=== PATIENT | male | born 1960 | race Caucasian/White ===

== ENCOUNTER → 2017-12-18 15:44 | Outpatient (CLI) | payer MEDICAID, SELFPAY ==
--- NOTE | 2017-12-18 16:26 | XR_ITS ---
EXAM: XR lumbar spine min 4V HISTORY: ITS.REASON: Back Pain ORDERING PHYSICIAN: Tomas Haines MD PATIENT AGE: 57 years COMPARISON: FINDINGS: Normal alignment. No fracture or dislocation. No lytic or blastic change. Endplate spurring is present from L2 to S1. There is mild degenerative disc disease at L4-L5 and L5-S1. No lytic or blastic change. Incidental vascular calcification noted. Right upper quadrant calcifications are present and may be within the liver. IMPRESSION: Degenerative disc disease L4-L5 and L5-S1 with bony endplate hypertrophic changes of the vertebral bodies
[2017-12-18 16:56] LABS: Microscopic, Urine URINE MICROSCOPIC (MICROSCOPIC)
[2017-12-18 17:42] LABS: Basophils # 0.1 K/mm3 (0-0.2); Basophils % 0.6 % (0.1-2.0); Eosinophils # 0.3 K/mm3 (0.0-0.4); Eosinophils % 2.6 % (0.1-12.0); Hematocrit 47.3 % (42.0-52.0); Hemoglobin 15.7 g/dL (14.1-18.0); Lymphocytes # 3.2 K/mm3 (0.7-4.5); Lymphocytes % 33.9 K/mm3 (10-50); Mean Corpuscular HGB Conc 33.2 g/dL (31.8-35.4); Mean Corpuscular Hemoglobin 32.1 pg (27.0-31.2); Mean Corpuscular Volume 96.5 fl (80-94); Mean Platelet Volume 7.7 fl (7.4-10.4); Monocytes # 0.4 K/mm3 (0.1-1.0); Monocytes % 4.5 % (1.7-9.3); Neutrophils # 5.6 K/mm3 (1.8-7.8); Neutrophils % 58.4 % (37.0-80.0); Platelet Count 247 K/mm3 (142-424); Red Cell Distribution Width 12.9 % (11.5-17.5); White Blood Count 9.6 K/mm3 (4.8-10.8)
[2017-12-18 18:45] LABS: Appearance,Urine CLEAR (Clear); Color,Urine YELLOW (Yellow); Protein,Urine Negative (Negative)
[2017-12-18 18:46] LABS: Bilirubin,Urine Negative (Negative); Blood, Urine TRACE-L (Negative); Glucose,Urine (UA) Negative (Negative); Ketones,Urine Negative (Negative); Leukocyte Esterase,Urine 1+ (Negative); Nitrate,Urine Negative (Negative); Urobilinogen,Urine 0.2 EU/dl (0.2)
[2017-12-18 19:14] LABS: Erythrocyte Sedimentation Rate 12 mm/hr (0-20)
[2017-12-18 19:55] LABS: Alanine Aminotransferase 23 U/L (12-78); Albumin Level 4.2 gm/dL (3.4-5.0); Albumin/Globulin Ratio 1.3 (1.1-1.8); Alkaline Phosphatase 91 U/L (46-116); Anion Gap 14.1 mEq/L (5-15); Aspartate Amino Transferase 14 U/L (15-37); Bilirubin,Total 0.4 mg/dL (0.2-1.0); Blood Urea Nitrogen 12 mg/dL (7-18); Calcium 9.6 mg/dL (8.5-10.1); Carbon Dioxide 28 mmol/L (21.0-32.0); Chloride 105 mmol/L (98-107); Estimated Glomerular Filt Rate 100 ml/min (>60); Free T4 (Free Thyroxine) 0.85 ng/dl (0.76-1.46); GFR (African American) 121 ML/MIN (>60); Globulin 3.3 gm/dl (1.3-3.2); Glucose 81 mg/dL (74-106); Potassium 5.1 mmoL/L (3.5-5.1); Sodium 142 mmol/L (136-145); Thyroid Stimulating Hormone 2.62 uIU/ml (0.358-3.740); Total Protein,Serum 7.5 gm/dL (6.4-8.2)
[2017-12-18 19:59] LABS: Bacteria,Urine 1+ /lpf
[2017-12-22 12:37] LABS: PSA, Free 0.17 ng/mL
[2017-12-22 12:39] LABS: Prostate Specific Ag 0.9 ng/mL (0.0-4.0)
== END ==
PROVIDERS: PCP Emergency Medicine; Visit Provider Emergency Medicine
DX: R53.83 Other fatigue (principal); M54.9 Dorsalgia, unspecified
CPT/HCPCS: 36415; 72110; 80053; 81001; 84153; 84154; 84439; 84443; 85025; 85651; 87086

== ENCOUNTER → 2018-01-01 12:38 | Outpatient (CLI) | payer MEDICAID, SELFPAY ==
[2018-01-01 12:55] LABS: Basophils % 0.4 % (0.1-2.0); Eosinophils # 0.3 K/mm3 (0.0-0.4); Eosinophils % 2.7 % (0.1-12.0); Hematocrit 44.8 % (42.0-52.0); Hemoglobin 15.3 g/dL (14.1-18.0); Lymphocytes # 2.7 K/mm3 (0.7-4.5); Lymphocytes % 28.2 K/mm3 (10-50); Mean Corpuscular HGB Conc 34.2 g/dL (31.8-35.4); Mean Corpuscular Hemoglobin 32.9 pg (27.0-31.2); Mean Corpuscular Volume 96.3 fl (80-94); Monocytes # 0.4 K/mm3 (0.1-1.0); Monocytes % 4.1 % (1.7-9.3); Neutrophils # 6.1 K/mm3 (1.8-7.8); Neutrophils % 64.5 % (37.0-80.0); Platelet Count 220 K/mm3 (142-424); Red Blood Count 4.65 M/mm3 (4.60-6.20); Red Cell Distribution Width 12.8 % (11.5-17.5); White Blood Count 9.5 K/mm3 (4.8-10.8)
[2018-01-01 13:55] LABS: Alanine Aminotransferase 21 U/L (12-78); Albumin Level 3.7 gm/dL (3.4-5.0); Albumin/Globulin Ratio 1.2 (1.1-1.8); Alkaline Phosphatase 86 U/L (46-116); Anion Gap 11.8 mEq/L (5-15); Aspartate Amino Transferase 9 U/L (15-37); Bilirubin,Total 0.2 mg/dL (0.2-1.0); Blood Urea Nitrogen 9 mg/dL (7-18); Calcium 9.3 mg/dL (8.5-10.1); Carbon Dioxide 29 mmol/L (21.0-32.0); Chloride 104 mmol/L (98-107); Creatinine,Serum 0.92 mg/dL (0.70-1.30); Estimated Glomerular Filt Rate 85 ml/min (>60); GFR (African American) 103 ML/MIN (>60); Globulin 3.1 gm/dl (1.3-3.2); Glucose 116 mg/dL (74-106); Potassium 4.8 mmoL/L (3.5-5.1); Sodium 140 mmol/L (136-145); Total Protein,Serum 6.8 gm/dL (6.4-8.2)
== END ==
PROVIDERS: Visit Provider Otolaryngology
DX: Z01.818 Encounter for other preprocedural examination (principal); L98.9 Disorder of the skin and subcutaneous tissue, unspecified; C44.209 Unspecified malignant neoplasm of skin of left ear and external auricular canal; D49.2 Neoplasm of unspecified behavior of bone, soft tissue, and skin
CPT/HCPCS: 36415; 80053; 85025; 93005

== ENCOUNTER → 2018-10-02 11:04 | Outpatient (CLI) | payer MEDICAID, SELFPAY ==
[2018-10-02 10:30] VITALS: PULSE 72; PULSE 78
== END ==
PROVIDERS: PCP Emergency Medicine; Visit Provider Emergency Medicine
DX: R05 Cough (principal); F17.200 Nicotine dependence, unspecified, uncomplicated
CPT/HCPCS: 94060; 94640

== ENCOUNTER → 2018-12-05 07:37 | Outpatient (CLI) | payer MEDICAID, SELFPAY ==
--- NOTE | 2018-12-05 07:39 | NM_ITS ---
CARDIOLITE SPECT MYOCARDIAL PERFUSION LEXISCAN, REST AND STRESS: [facility] REVIEW QGS EF AND WALL MOTION EVALUATION: QPS - PERFUSION EVALUATION HISTORY: C.P. DOSE: 10.06 mCi technetium 99m mibi intravenously at rest followed by 30.7 mCi technetium 99m mibi following the intravenous ministration of 0.4 mg of Lexiscan. Resting blood pressure is 146/86. Stress blood pressure 178/93. FINDINGS: Ejection fraction is calculated to be 66%. Uniform myocardial activity at both stress and rest gated images calculated ejection fraction of 66% wall motion IMPRESSION: No scintigraphic evidence of Lexiscan-induced myocardial ischemia with normal ejection fraction normal wall motion
--- NOTE | 2018-12-05 10:56 | HMH.ITSHM ---
Current Home Medications as stated by this patient Karthikeyan Carter or apprenticeship representative. []
== END ==
PROVIDERS: PCP Emergency Medicine; Visit Provider Internal Medicine Cardiovascular Disease
DX: Z01.818 Encounter for other preprocedural examination (principal); I20.9 Angina pectoris, unspecified; R10.11 Right upper quadrant pain; F17.209 Nicotine dependence, unspecified, with unspecified nicotine-induced disorders
CPT/HCPCS: 78452; 93017; 93306; A9502; J2785

== ENCOUNTER → 2018-12-28 10:53 | Outpatient (CLI) | payer MEDICAID, SELFPAY ==
[2018-12-28 11:22] LABS: Basophils # 0.1 K/mm3 (0-0.2); Basophils % 0.5 % (0.1-2.0); Eosinophils # 0.2 K/mm3 (0.0-0.4); Eosinophils % 1.9 % (0.1-12.0); Hematocrit 44.8 % (42.0-52.0); Hemoglobin 15.3 g/dL (14.1-18.0); Lymphocytes # 2.7 K/mm3 (0.7-4.5); Lymphocytes % 23.1 % (10-50); Mean Corpuscular HGB Conc 34.1 g/dL (31.8-35.4); Mean Corpuscular Hemoglobin 32.1 pg (27.0-31.2); Mean Corpuscular Volume 94.1 fl (80-94); Mean Platelet Volume 7.7 fl (7.4-10.4); Monocytes # 0.5 K/mm3 (0.1-1.0); Monocytes % 4.5 % (1.7-9.3); Neutrophils # 8.2 K/mm3 (1.8-7.8); Neutrophils % 70.1 % (37.0-80.0); Platelet Count 250 K/mm3 (142-424); Red Blood Count 4.76 M/mm3 (4.60-6.20); Red Cell Distribution Width 13.3 % (11.5-17.5); White Blood Count 11.7 K/mm3 (4.8-10.8)
[2018-12-28 11:57] LABS: Alanine Aminotransferase 26 U/L (12-78); Albumin Level 4.1 gm/dL (3.4-5.0); Albumin/Globulin Ratio 1.2 (1.1-1.8); Alkaline Phosphatase 84 U/L (46-116); Anion Gap 11.4 mEq/L (5-15); Aspartate Amino Transferase 7 U/L (15-37); Bilirubin,Total 0.2 mg/dL (0.2-1.0); Blood Urea Nitrogen 12 mg/dL (7-18); Calcium 9.3 mg/dL (8.5-10.1); Carbon Dioxide 28 mmol/L (21.0-32.0); Chloride 103 mmol/L (98-107); Creatinine,Serum 0.76 mg/dL (0.70-1.30); Estimated Glomerular Filt Rate 105 ml/min (>60); GFR (African American) 127 ML/MIN (>60); Globulin 3.3 gm/dl (1.3-3.2); Glucose 73 mg/dL (74-106); Potassium 4.4 mmoL/L (3.5-5.1); Sodium 138 mmol/L (136-145); Total Protein,Serum 7.4 gm/dL (6.4-8.2)
== END ==
PROVIDERS: Visit Provider Surgery
DX: K82.9 Disease of gallbladder, unspecified (principal)
CPT/HCPCS: 36415; 80053; 85025

== ENCOUNTER → 2021-01-04 14:13 | Outpatient (CLI) | payer MEDICAID, SELFPAY ==
--- NOTE | 2021-01-04 14:17 | XR_ITS ---
PROCEDURE: XR ANKLE LT MIN 3V CLINICAL INDICATION: left foot and ankle pain COMPARISON: No exams were available for comparison FINDINGS: No fracture or dislocation. No lytic or blastic change. There is normal mineralization. Incidental note is made of os trigonum. The ankle mortise is congruent and the lateral clear space is preserved. No significant soft tissue abnormality is noted. Other findings:None. IMPRESSION: No acute findings. Dictated by: Lauren Loomis 01/04/2021 16:54 Lauren Loomis in [place] 01/04/2021 16:54
[2021-01-04 17:15] LABS: Basophils # 0.1 K/mm3 (0-0.2); Eosinophils # 0.2 K/mm3 (0.0-0.4); Eosinophils % 1.9 % (0.1-12.0); Hematocrit 47.6 % (42.0-52.0); Hemoglobin 15.8 g/dL (14.1-18.0); Lymphocytes # 2.6 K/mm3 (0.7-4.5); Lymphocytes % 27.9 % (10-50); Mean Corpuscular HGB Conc 33.1 g/dL (31.8-35.4); Mean Corpuscular Hemoglobin 32.1 pg (27.0-31.2); Mean Corpuscular Volume 96.9 fl (80-94); Mean Platelet Volume 8.4 fl (7.4-10.4); Monocytes # 0.5 K/mm3 (0.1-1.0); Monocytes % 5.6 % (1.7-9.3); Neutrophils # 5.9 K/mm3 (1.8-7.8); Neutrophils % 63.6 % (37.0-80.0); Platelet Count 271 K/mm3 (142-424); Red Blood Count 4.91 M/mm3 (4.60-6.20); Red Cell Distribution Width 13.8 % (11.5-17.5); White Blood Count 9.3 K/mm3 (4.8-10.8)
[2021-01-04 17:51] LABS: Alanine Aminotransferase 25 U/L (12-78); Albumin Level 4.5 g/dl (3.5-5.0); Albumin/Globulin Ratio 1.8 (1.1-1.8); Alkaline Phosphatase 94 U/L (38-126); Anion Gap 12.3 mEq/L (5-15); Aspartate Amino Transferase 24 U/L (17-59); Bilirubin,Total 0.2 mg/dl (0.2-1.3); Blood Urea Nitrogen 14 mg/dl (9-20); Calcium 9.7 mg/dl (8.4-10.2); Carbon Dioxide 27 mmol/L (22.0-30.0); Chloride 105 mmol/L (98-107); Chol/HDL Ratio 5.5 (1-3.5); Cholesterol 197 mg/dl (140-200); Estimated Glomerular Filt Rate 99 ml/min (>60); GFR (African American) 119 ML/MIN (>60); Globulin 2.5 g/dL (1.3-3.2); Glucose 87 mg/dl (74-100); HDL Cholesterol 36 mg/dl (40-60); Potassium 5.3 mmoL/L (3.5-5.1); Sodium 139 mmol/L (136-145); Triglycerides 204 mg/dl (30-150); Uric Acid 5.4 mg/dl (3.5-8.5); VLDL Cholesterol 41 mg/dL (0-40)
[2021-01-04 18:02] LABS: Direct LDL Cholesterol 126.71 mg/dL (100-129)
[2021-01-04 18:08] LABS: Free T4 (Free Thyroxine) 0.97 ng/dl (0.78-2.19)
[2021-01-04 18:22] LABS: Prostate Specific Ag Screen 1.2 ng/ml (0.0-4.0); Thyroid Stimulating Hormone 1.73 uIU/mL (0.465-4.68)
== END ==
PROVIDERS: PCP Emergency Medicine; Visit Provider Emergency Medicine
DX: M25.572 Pain in left ankle and joints of left foot (principal); M79.672 Pain in left foot; R53.83 Other fatigue; Z12.5 Encounter for screening for malignant neoplasm of prostate; I10 Essential (primary) hypertension; F17.210 Nicotine dependence, cigarettes, uncomplicated
CPT/HCPCS: 36415; 73610; 80053; 80061; 84439; 84443; 84550; 85025; G0103

== ENCOUNTER → 2021-04-20 14:06 | Outpatient (CLI) | payer MEDICAID, SELFPAY ==
[2021-04-20 14:18] LABS: Coronavirus 19, PCR Not Detected (NotDetected); Influenza A, PCR Not Detected (NotDetected); Influenza B, PCR Not Detected (NotDetected)
[2021-04-20 14:22] LABS: Basophils # 0.1 K/mm3 (0-0.2); Basophils % 0.9 % (0.1-2.0); Eosinophils # 0.3 K/mm3 (0.0-0.4); Eosinophils % 2.9 % (0.1-12.0); Hematocrit 46.4 % (42.0-52.0); Hemoglobin 15.1 g/dL (14.1-18.0); Lymphocytes # 3.1 K/mm3 (0.7-4.5); Lymphocytes % 29.4 % (10-50); Mean Corpuscular HGB Conc 32.4 g/dL (31.8-35.4); Mean Corpuscular Hemoglobin 32.1 pg (27.0-31.2); Mean Corpuscular Volume 98.8 fl (80-94); Mean Platelet Volume 8.3 fl (7.4-10.4); Monocytes # 0.6 K/mm3 (0.1-1.0); Monocytes % 5.4 % (1.7-9.3); Neutrophils # 6.6 K/mm3 (1.8-7.8); Neutrophils % 61.3 % (37.0-80.0); Platelet Count 289 K/mm3 (142-424); Red Cell Distribution Width 13.6 % (11.5-17.5); White Blood Count 10.7 K/mm3 (4.8-10.8)
--- NOTE | 2021-04-20 14:24 | ECG_ITS ---
APPROVED REPORT Exam: Resting ECG HR:73 bpm ECG Measurements Heart Rate 73 AXES [place] 158 P 23 QRSd 92 QRS 77 QT 386 T 17 QTc 425 Conclusion Normal sinus rhythm Late R wave progression Abnormal ECG Electronically signed by : Hung Mattson MD 04/20/2021 17:33:08
[2021-04-20 16:07] LABS: Anion Gap 16.2 mEq/L (5-15); Blood Urea Nitrogen 8 mg/dl (9-20); Calcium 9.2 mg/dl (8.4-10.2); Carbon Dioxide 25 mmol/L (22.0-30.0); Chloride 102 mmol/L (98-107); Estimated Glomerular Filt Rate 98 ml/min (>60); GFR (African American) 119 ML/MIN (>60); Glucose 85 mg/dl (74-100); Potassium 4.2 mmoL/L (3.5-5.1); Sodium 139 mmol/L (136-145)
== END ==
PROVIDERS: Visit Provider Otolaryngology
DX: Z01.812 Encounter for preprocedural laboratory examination (principal); L57.0 Actinic keratosis; L56.8 Other specified acute skin changes due to ultraviolet radiation
CPT/HCPCS: 36415; 80048; 85025; 93005; U0003

== ENCOUNTER 2021-04-22 06:37 | Day surgery (SDC) | payer MEDICAID, SELFPAY ==
[2021-04-21 12:37] VITALS: BMI 25.7
[2021-04-22 06:56] VITALS: BP 147/96; PULSE 81; RESP 18; TEMP 36.7; O2SAT 96
--- NOTE | 2021-04-22 08:43 | P.PN_ITS ---
[facility] Anesthesia Checklist - Structural Data Admitted From: Home Planned Operative Procedure/s: excision lesions lip/ear Consent for Planned Operative Procedure(s) Verified: Yes - Additional verifications Anesthesia Reactions: No Hx Blood Transfusions: No Blood Transfusion Reaction: No - Airway Assessment C-Spine Mobility Assessed: Yes TMJ Mobility Assessed: Yes Dentition: Edentulous - Neurological Assessment Level of Consciousness: Awake, Alert, Appropriate - Anesthesia Plan Anesthesia Risk discussed: Yes Anesthesia Plan: Verified ASA Class: III Anesthesia Type: MAC [facility] History I have reviewed the patient's past medical history: Yes Medical History: Reports:: Gastroesophageal Reflux Disease(GERD), Hypertension, Migraine Denies:: Cancer, Diabetes Mellitus Type 1, Diabetes Mellitus Type 2, Internal Pacemaker, MRSA, Seizures *Have you ever received a pneumonia vaccine?: No *Have you received a flu vaccine this season?: No Other Medical History: Reports: Arthritis, Other. Denies: Blood Transfusion Reaction Anesthesia experience/problems:: none Laterality Cases: Bilateral: Other Other Surgeries: Yes: Cancer Surgery, Cholecystectomy, Skin Cancer Excision, Other. No: Pacemaker Amputation: No Fractures: No - *Social History Last grade of school completed: High school graduate Smoking Status: Current every day smoker Tobacco Type: cigarettes # Packs/Day (cigarettes): 2 #Yrs smoked (if former smoker): 40 Alcohol Intake: never Substance Use Type: denies use *Occupational Status:: retired Housing: house Household Members: spouse, children *Travel in the last 8 weeks: None Family Hx:: Cancer, Coronary Artery Disease
[2021-04-22 09:20] VITALS: BP 134/80; PULSE 75; RESP 16; TEMP 36.5; O2SAT 95
--- NOTE | 2021-04-22 09:20 | P.OP_ITS ---
Date of procedure: 04/22/21 Pre-op Diagnosis:: 1. 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 Excision of malignant neoplasm lower lip 3.8 cm with tissue rearrangement geometric plastic repair 2. Excision of neoplasm left ear 2.5 cm with Z-plasty tissue rearrangement repair Surgeon:: Elvis Whalen MD CONTRACT DRIVER:: Arie Flanagan Anesthesia: MAC Estimated blood loss (mL): 5 Operative findings:: same Operative note:: The lower face was prepped and draped, the perilesional area on the right side of the lower lip was infiltrated with a total of 3 cc of 2% lidocaine containing epinephrine. The lesion was marked out and the esteban out measured 3.8 cm and involved the red lip as well as the upper part of the white lip on the right side. The esteban out was incised and the lesion was excised and submitted. Bleeding was stopped with bipolar cautery. Anterior and posterior incisions were made and a tissue rearrangement geometric plastic repair was done with interrupted nylon sutures. A Dermabond dressing was applied along with a dot omaira ssing. The patient was then repositioned and the lesion on the left ear was prepped and draped, the lesion was marked out it measured 2.5 cm, the perilesional area was infiltrated with a total of 2 cc of lidocaine with epi the esteban out was incised and the lesion was excised and submitted. Lateral and medial incisions were made and a tissue rearrangement Z-plasty repair was done with interrupted 2-0 Vicryl sutures, a Dermabond dressing was applied and the patient was sent to recovery in good general condition.. Condition: stable Disposition: PACU Complications:: none
[2021-04-22 09:35] VITALS: BP 140/92; PULSE 75; RESP 16; O2SAT 95
[2021-04-22 09:50] VITALS: BP 148/87; PULSE 75; RESP 16; O2SAT 95
== END 2021-04-22 09:55 | disposition home or self-care (01) ==
LOC: OR 06:38
PROVIDERS: PCP Emergency Medicine; Visit Provider Otolaryngology
PROC: (CPT 14060; principal; 2021-04-22 08:15)
DX: C00.4 Malignant neoplasm of lower lip, inner aspect (principal); C00.1 Malignant neoplasm of external lower lip; L57.0 Actinic keratosis; K21.9 Gastro-esophageal reflux disease without esophagitis; I10 Essential (primary) hypertension; G43.909 Migraine, unspecified, not intractable, without status migrainosus; M19.90 Unspecified osteoarthritis, unspecified site; Z85.828 Personal history of other malignant neoplasm of skin; Z72.0 Tobacco use; Z80.9 Family history of malignant neoplasm, unspecified; Z82.49 Family history of ischemic heart disease and other diseases of the circulatory system
CPT/HCPCS: 14060 ×2; 96374; 96375

== ENCOUNTER 2022-05-17 12:26 | Emergency (ER) | payer MEDICAID, SELFPAY ==
[2022-05-17] VITALS (10 sets, daily range): BP systolic 145–191; BP diastolic 86–108; PULSE 56–78; RESP 16–160; TEMP 36.6–37.1; O2SAT 96–98; BMI 25.8
--- NOTE | 2022-05-17 12:42 | XR_ITS ---
FINAL REPORT CLINICAL HISTORY: Weakness, SOA x days. Smoker COMPARISON: October 16, 2018 FINDINGS: The heart size is normal. The mediastinum is normal. There are mild chronic changes in the lung bases. There is no focal infiltrate or edema. There are no pleural effusions. There is no pneumothorax. There is no osseous abnormality. IMPRESSION: No acute cardiopulmonary process Reviewed, Interpreted and Dictated by Jose Enrique Curtis MD Transcribed by Oscar Kauffman Authenticated and [facility]
--- NOTE | 2022-05-17 12:42 | CT_ITS ---
FINAL REPORT TECHNIQUE: Axial CT images were performed through the head. Coronal reformatted images were submitted. This study was performed with techniques to keep radiation doses as low as reasonably achievable (ALARA). Individualized dose reduction techniques using automated exposure control or adjustment of mA and/or kV according to the patient's size were employed. CLINICAL HISTORY: Weakness, vertigo, LARIOS @ frontal lobe x days. Smoker. FINDINGS: The head is asymmetrically positioned in the gantry. The ventricles are normal in size. There is no evidence of hemorrhage. There is no mass or edema identified. There is no abnormal extra-axial fluid seen. The sinuses are well aerated. IMPRESSION: No acute intracranial process. Reviewed, Interpreted and Dictated by Jose Enrique Curtis MD Transcribed by Oscar Kauffman Authenticated and [facility]
[2022-05-17 12:44] LABS: POC Glucose,Bedside 131 (70-110)
--- NOTE | 2022-05-17 12:44 | HMH.EDGENADL ---
Discharge Plan Disposition Patient Disposition: Home, Self-Care Condition: Good Prescriptions Prescriptions: New lorazepam [Ativan] 0.5 mg tablet 0.5 mg PO HS PRN (Reason: sleep) Qty: 3 0RF No Action albuterol sulfate 8.5 GM HFA aerosol inhaler 8.5 gm IH NEEDED PRN (Reason: soa) Referrals Follow up/Referrals: Tomas Haines MD [Primary Care Provider] - See instructions Activity Restrictions/Add. Instructions Additional Instructions/Restrictions: Follow-up with Dr. Haines in the office as soon as possible. Call for appointment. Ativan as needed for sleep. Return to the emergency department if symptoms worsen. Additional instructions regarding BLOOD PRESSURE: One or more of your blood pressure readings elevated today. Please contact your primary care physician for further evaluation or treatment of your blood pressure. Clinical Impressions Clinical Impression: Generalized weakness, Anxiety state, Elevated blood pressure reading Discharge ED Provider: Herber Disla General Adult HPI General Chief complaint: Weakness Stated complaint: Dizzy, leg numbness, confusion Time Seen by Provider: 05/17/22 12:30 History of Present Illness HPI narrative: History obtained from patient and his daughter. States that around 10 AM began feeling bad. He has a generalized headache. Vision is blurry. He feels hot like he is burning all over. He is generally weak all over, daughter states his legs will just give out on him when he tried to walk and he had to be helped into the vehicle by 2 people. She states he seems a little confused. He is a little drowsy. He denies chest pain. He has some dyspnea on exertion which is not new, but is worse today. Denies URI symptoms. Denies vomiting or diarrhea. Denies abdominal pain. States that he has had headaches for the past couple of weeks, but headache is worse today. He does not have any known heart disease, does not have hypertension, no diabetes. He is a smoker. Related Data Home Medications Medication Instructions Recorded Confirmed albuterol sulfate 90 mcg/actuation 8.5 gm IH NEEDED PRN soa 04/21/21 05/11/21 aerosol inhaler Previous Rx's Medication Instructions Recorded lorazepam 0.5 mg tablet (Ativan) 0.5 mg PO HS PRN sleep #3 tabs 05/17/22 Allergies Allergy/AdvReac Type Severity Reaction Status Date / Time No Known Allergies Allergy Verified 05/11/21 10:02 [facility] Social History Smoking Status: Current every day smoker tobacco type: cigarettes packs per day: 1 second hand exposure: Yes alcohol intake: never substance use type: denies use current occupational status: employed Travel in the last 8 weeks: None household members: spouse and children housing: house current occupational exposures/hazards: No caffeine: Yes ROS Obtained: Yes Systems reviewed as appropriate & no additional complaints except as documented Constitutional Constitutional: Denies fever(s), Reports headache(s) and Reports weakness Eyes Eyes: Reports blurry vision and Denies diplopia ENT Ears, Nose, Mouth, and Throat: Reports headache(s), Denies nasal discharge and Denies sore throat Cardiovascular Cardiovascular: Denies chest pain and Reports dyspnea on exertion Respiratory Respiratory: Denies cough and Reports dyspnea on exertion Gastrointestinal Gastrointestingal: Denies abdominal pain, constipation, diarrhea or vomiting Genitourinary Male Genitourinary: Denies difficulty urinating and Denies flank pain Musculoskeletal Musculoskeletal: Denies numbness Neurologic Neurologic: Reports confusion, Denies focal weakness, Reports headache(s), Denies numbness and Reports weakness Physical Exam General General appearance: alert and in no apparent distress Head Head exam: atraumatic and normocephalic Eye Eye exam: Present normal appearance and EOMI ENT ENT exam: Present mucous membranes moist Neck Neck exam: Presen
--- NOTE | 2022-05-17 12:46 | PC.NURSE ---
blood sugar 131
[2022-05-17 12:49] LABS: Basophils # 0.1 K/mm3 (0-0.2); Basophils % 0.8 % (0.1-2.0); Eosinophils # 0.2 K/mm3 (0.0-0.4); Eosinophils % 1.2 % (0.1-12.0); Hematocrit 48.1 % (42.0-52.0); Hemoglobin 15.4 g/dL (14.1-18.0); Lymphocytes # 1.6 K/mm3 (0.7-4.5); Lymphocytes % 12.3 % (10-50); Mean Corpuscular Hemoglobin 32.7 pg (27.0-31.2); Mean Corpuscular Volume 102.2 fl (80-94); Mean Platelet Volume 8.2 fl (7.4-10.4); Monocytes # 0.4 K/mm3 (0.1-1.0); Monocytes % 3.1 % (1.7-9.3); Neutrophils # 10.7 K/mm3 (1.8-7.8); Neutrophils % 82.7 % (37.0-80.0); Platelet Count 258 K/mm3 (142-424); Red Cell Distribution Width 13.2 % (11.5-17.5); White Blood Count 12.9 K/mm3 (4.8-10.8)
[2022-05-17 12:51] LABS: Chloride 101 mmol/L (98-107); Potassium 4.4 mmoL/L (3.5-5.1); Sodium 136 mmol/L (136-145)
[2022-05-17 12:54] LABS: Alanine Aminotransferase 25 U/L (12-78); Albumin Level 4.3 g/dl (3.5-5.0); Albumin/Globulin Ratio 1.5 (1.1-1.8); Alkaline Phosphatase 114 U/L (38-126); Anion Gap 15.4 mEq/L (5-15); Aspartate Amino Transferase 25 U/L (17-59); Blood Urea Nitrogen 7 mg/dl (9-20); Carbon Dioxide 24 mmol/L (22.0-30.0); Creatinine Clearance Estimated 88 mL/min (50-200); Estimated Glomerular Filt Rate 137 ml/min (>60); GFR (African American) 165 ML/MIN (>60); Globulin 2.9 g/dL (1.3-3.2); Total Protein,Serum 7.2 g/dl (6.3-8.2)
[2022-05-17 12:55] LABS: Calcium 8.6 mg/dl (8.4-10.2); Glucose 126 mg/dl (74-100)
[2022-05-17 12:57] LABS: Bilirubin,Total < 0.1 mg/dl (0.2-1.3)
--- NOTE | 2022-05-17 13:00 | PC.NURSE ---
RN obtaining ECG
--- NOTE | 2022-05-17 13:01 | ECG_ITS ---
APPROVED REPORT Exam: Resting ECG HR:72 bpm ECG Measurements Heart Rate 72 AXES RI 156 P 7 QRSd 93 QRS 16 QT 374 T 51 QTc 398 Conclusion SINUS RHYTHM NONSPECIFIC T-WAVE ABNORMALITY BORDERLINE ECG UNCONFIRMED REPORT Electronically signed by : Hung Mattson MD 05/17/2022 21:05:03
[2022-05-17 13:09] LABS: Troponin I < 0.01 ng/ml (0.00-0.034)
[2022-05-17 13:20] LABS: Activated Partial Thrombo Time 24.8 seconds (22.8-30.6); INR 0.94 (0.9-1.1); Prothrombin Time 10.2 seconds (10.1-12.5)
[2022-05-17 15:59] LABS: Microscopic, Urine URINE MICROSCOPIC (MICROSCOPIC)
[2022-05-17 16:01] LABS: Appearance,Urine CLEAR (Clear); Bilirubin,Urine Negative (Negative); Blood, Urine TRACE-L (Negative); Color,Urine YELLOW (Yellow); Glucose,Urine (UA) 1+ (Negative); Ketones,Urine Negative (Negative); Leukocyte Esterase,Urine TRACE (Negative); Nitrate,Urine Negative (Negative); Protein,Urine Negative (Negative); Urobilinogen,Urine 0.2 EU/dl (0.2)
[2022-05-17 16:16] LABS: Bacteria,Urine Trace /lpf; Squamous Epithelial Cell,Urine Occasional #/hpf (0-5)
--- NOTE | 2022-05-17 16:24 | PC.NURSE ---
updated pt and family on plan of care
[2022-05-17 16:33] LABS: Coronavirus 19, PCR Not Detected (NotDetected); Influenza A, PCR Not Detected (NotDetected); Influenza B, PCR Not Detected (NotDetected)
[2022-05-17 16:49] LABS: Troponin I < 0.01 ng/ml (0.00-0.034)
--- NOTE | 2022-05-17 17:30 | PC.NURSE ---
pt walked around room steady gait
== END 2022-05-17 18:13 | disposition home or self-care (01) ==
PROVIDERS: Emergency Provider Emergency Medicine; PCP Emergency Medicine
DX: F41.9 Anxiety disorder, unspecified (principal); R03.0 Elevated blood-pressure reading, without diagnosis of hypertension; Z72.0 Tobacco use
CPT/HCPCS: 36415; 70450; 71045; 80053; 81001; 82962; 84484; 85025; 85610; 85730; 93005; 96374; 99284; C9803; U0003; U0005

== ENCOUNTER → 2022-06-29 07:45 | Outpatient (CLI) | payer MEDICAID, SELFPAY ==
--- NOTE | 2022-06-29 07:49 | CA_ITS ---
FINAL REPORT TECHNIQUE: Grayscale, color Doppler and duplex Doppler ultrasound of the kidneys, aorta and renal arteries was performed. Multiple velocities were measured. CLINICAL HISTORY: HTN,SMOKER FINDINGS: Aorta velocity: 96 cm/sec Right kidney: 11.8 cm. No evidence of hydronephrosis or mass. Right intrarenal RI: 0.64 Right renal artery velocity: 233 cm/sec. Right RAR (Renal artery-Aortic Ratio): 2.4 Left Kidney: 13.3 cm. No evidence of hydronephrosis or mass. Left intrarenal RI: 0.69 Left renal artery velocity: 293 cm/sec. Left RAR (Renal Artery-Aortic Ratio): 3.04 IMPRESSION: Less than 60% right renal artery stenosis. Greater than 60% left renal artery stenosis. Recommend CT or catheter angiogram for further evaluation. Reviewed, Interpreted and Dictated by Tacho Sifuentes III, MD Transcribed by Jayne Vasquez Authenticated and [facility]
== END ==
PROVIDERS: PCP Emergency Medicine; Visit Provider Emergency Medicine
DX: I10 Essential (primary) hypertension (principal)
CPT/HCPCS: 93976

== ENCOUNTER → 2022-07-11 10:09 | Outpatient (CLI) | payer MEDICAID, SELFPAY ==
[2022-07-11 10:37] LABS: Basophils # 0.1 K/mm3 (0-0.2); Eosinophils # 0.2 K/mm3 (0.0-0.4); Eosinophils % 2.3 % (0.1-12.0); Hematocrit 46.8 % (42.0-52.0); Hemoglobin 15.5 g/dL (14.1-18.0); Lymphocytes # 2.6 K/mm3 (0.7-4.5); Lymphocytes % 28.2 % (10-50); Mean Corpuscular HGB Conc 33.1 g/dL (31.8-35.4); Mean Corpuscular Hemoglobin 33.1 pg (27.0-31.2); Mean Corpuscular Volume 100.1 fl (80-94); Mean Platelet Volume 8.2 fl (7.4-10.4); Monocytes # 0.5 K/mm3 (0.1-1.0); Monocytes % 5.3 % (1.7-9.3); Neutrophils # 5.8 K/mm3 (1.8-7.8); Neutrophils % 63.3 % (37.0-80.0); Platelet Count 336 K/mm3 (142-424); Red Blood Count 4.68 M/mm3 (4.60-6.20); Red Cell Distribution Width 13.2 % (11.5-17.5); White Blood Count 9.1 K/mm3 (4.8-10.8)
[2022-07-11 11:01] LABS: Chloride 102 mmol/L (98-107); Sodium 139 mmol/L (136-145)
[2022-07-11 11:05] LABS: Blood Urea Nitrogen 16 mg/dl (9-20); Calcium 10.1 mg/dl (8.4-10.2); Carbon Dioxide 28 mmol/L (22.0-30.0); Estimated Glomerular Filt Rate 86 ml/min (>60); GFR (African American) 103 ML/MIN (>60); Glucose 82 mg/dl (74-100)
== END ==
PROVIDERS: PCP Emergency Medicine; Visit Provider Physician Assistant
DX: I10 Essential (primary) hypertension (principal); I63.9 Cerebral infarction, unspecified; I70.1 Atherosclerosis of renal artery; F17.209 Nicotine dependence, unspecified, with unspecified nicotine-induced disorders
CPT/HCPCS: 36415; 80048; 85025

== ENCOUNTER 2022-07-20 08:05 | Day surgery (SDC) | payer MEDICAID, SELFPAY ==
[2022-07-20] VITALS (14 sets, daily range): BP systolic 111–205; BP diastolic 52–185; PULSE 57–79; RESP 18; O2SAT 93–95; BMI 27.5
--- NOTE | 2022-07-20 07:55 | IR_ITS ---
APPROVED REPORT Patient Location: Outpatient Seasoning Sprayer: WINSTON Mendoza RT (R) PROCEDURES Bilateral selective renal angiography INDICATION Renovascular hypertension with abnormal renal duplex Informed consent was obtained prior to the procedure. COMPLICATIONS None Estimated Blood Loss: Less than 10 mls TECHNIQUE 1% lidocaine used to anesthetize the right femoral groin. The right femoral artery was accessed via the Seldinger technique. A 4 Pashto sheath was placed in the right femoral artery. The JR4 catheter was used to selectively intubate each renal artery. At the end of the diagnostic angiogram the patient was transferred to the postop holding area in stable condition for sheath removal. ANGIOGRAPHIC RESULTS Right renal artery singular normal Left renal artery singular normal IMPRESSION Normal renal arteries PLAN 1. Continue medical management Electronically signed by : Jay Bauer MD 07/20/2022 13:37:33
== END 2022-07-20 13:30 | disposition home or self-care (01) ==
PROVIDERS: PCP Emergency Medicine; Visit Provider Internal Medicine
DX: I15.0 Renovascular hypertension (principal); I70.1 Atherosclerosis of renal artery; F17.210 Nicotine dependence, cigarettes, uncomplicated; I10 Essential (primary) hypertension
CPT/HCPCS: 36252; 99152; C1725; C1769; J1644; Q9967

== ENCOUNTER → 2022-12-27 08:49 | Outpatient (CLI) | payer MEDICAID, SELFPAY ==
--- NOTE | 2022-12-27 08:53 | XR_ITS ---
FINAL REPORT CLINICAL HISTORY: right shoulder pain FINDINGS: Right shoulder Three views were obtained. There is no acute fracture or dislocation. There are mild hypertrophic changes of the glenohumeral joint consistent with osteoarthritis. The acromioclavicular joint is intact. No soft tissue abnormality is identified. IMPRESSION: Osteoarthritis of the glenohumeral joint. Reviewed, Interpreted and Dictated by Jose Enrique Curtis MD Transcribed by Iesha Delgado Authenticated and [facility]
== END ==
PROVIDERS: PCP Emergency Medicine; Visit Provider Orthopaedic Surgery
DX: M25.511 Pain in right shoulder (principal)
CPT/HCPCS: 73030

== ENCOUNTER → 2023-03-17 11:40 | Outpatient (CLI) | payer MEDICAID, SELFPAY ==
--- NOTE | 2023-03-17 11:51 | ECG_ITS ---
APPROVED REPORT Exam: Resting ECG HR:78 bpm ECG Measurements Heart Rate 78 AXES NM 150 P 11 QRSd 89 QRS 9 QT 354 T 69 QTc 387 Conclusion SINUS RHYTHM NORMAL ECG UNCONFIRMED REPORT Electronically signed by : Hung Mattson MD 03/17/2023 17:12:00
== END ==
LOC: RT 11:42
PROVIDERS: PCP Emergency Medicine; Visit Provider Emergency Medicine
DX: R00.2 Palpitations (principal)
CPT/HCPCS: 93005; 93225; 93226

== ENCOUNTER → 2023-03-23 11:59 | Outpatient (CLI) | payer MEDICAID, SELFPAY ==
[2023-03-23 12:32] LABS: Basophils # 0.1 K/mm3 (0-0.2); Basophils % 0.5 % (0.1-2.0); Eosinophils # 0.2 K/mm3 (0.0-0.4); Eosinophils % 1.7 % (0.1-12.0); Hematocrit 47.9 % (42.0-52.0); Hemoglobin 14.8 g/dL (14.1-18.0); Lymphocytes # 2.3 K/mm3 (0.7-4.5); Lymphocytes % 23.9 % (10-50); Mean Corpuscular Hemoglobin 31.1 pg (27.0-31.2); Mean Corpuscular Volume 100.5 fl (80-94); Mean Platelet Volume 7.8 fl (7.4-10.4); Monocytes # 0.6 K/mm3 (0.1-1.0); Monocytes % 5.8 % (1.7-9.3); Neutrophils # 6.7 K/mm3 (1.8-7.8); Neutrophils % 68.1 % (37.0-80.0); Platelet Count 264 K/mm3 (142-424); Red Blood Count 4.76 M/mm3 (4.60-6.20); Red Cell Distribution Width 13.3 % (11.5-17.5); White Blood Count 9.8 K/mm3 (4.8-10.8)
[2023-03-23 16:36] LABS: Chloride 106 mmol/L (98-107); Potassium 4.9 mmoL/L (3.5-5.1); Sodium 139 mmol/L (136-145)
[2023-03-23 16:38] LABS: Blood Urea Nitrogen 11 mg/dl (9-20); Estimated Glomerular Filt Rate 98 ml/min (>60); GFR (African American) 118 ML/MIN (>60)
[2023-03-23 16:39] LABS: Alanine Aminotransferase 27 U/L (12-78); Albumin Level 4.3 g/dl (3.5-5.0); Alkaline Phosphatase 99 U/L (38-126); Anion Gap 10.9 mEq/L (5-15); Aspartate Amino Transferase 19 U/L (17-59); Bilirubin,Direct 0.3 mg/dl (0.0-0.4); Bilirubin,Total 0.3 mg/dl (0.2-1.3); Calcium 9.6 mg/dl (8.4-10.2); Carbon Dioxide 27 mmol/L (22.0-30.0); Cholesterol 163 mg/dl (140-200); Glucose 90 mg/dl (74-100); Magnesium 1.8 mg/dl (1.6-2.3); Triglycerides 154 mg/dl (30-150); VLDL Cholesterol 31 mg/dL (0-40)
[2023-03-23 16:40] LABS: Chol/HDL Ratio 4.5 (1-3.5); HDL Cholesterol 36 mg/dl (40-60)
[2023-03-23 16:51] LABS: Direct LDL Cholesterol 102.02 mg/dL (100-129)
[2023-03-23 16:55] LABS: Free T4 (Free Thyroxine) 0.84 ng/dl (0.78-2.19)
[2023-03-23 17:10] LABS: Thyroid Stimulating Hormone 1.84 uIU/mL (0.465-4.68)
== END ==
PROVIDERS: PCP Emergency Medicine; Visit Provider Internal Medicine
DX: R06.00 Dyspnea, unspecified (principal); R06.01 Orthopnea; R07.9 Chest pain, unspecified; R42 Dizziness and giddiness; I48.0 Paroxysmal atrial fibrillation; R94.31 Abnormal electrocardiogram [ECG] [EKG]; F17.209 Nicotine dependence, unspecified, with unspecified nicotine-induced disorders; Z79.899 Other long term (current) drug therapy
CPT/HCPCS: 36415; 80048; 80061; 80076; 83735; 84439; 84443; 85025; 93270

== ENCOUNTER → 2023-04-06 10:35 | Outpatient (CLI) | payer MEDICAID, SELFPAY | PROVIDERS: PCP Emergency Medicine; Visit Provider Internal Medicine | DX: I48.0 Paroxysmal atrial fibrillation (principal); R94.31 Abnormal electrocardiogram [ECG] [EKG] | CPT/HCPCS: 93270 ==

== ENCOUNTER → 2023-04-11 10:04 | Outpatient (CLI) | payer MEDICAID, SELFPAY ==
--- NOTE | 2023-04-11 10:11 | CA_ITS ---
APPROVED REPORT EXAM: Comprehensive 2D, Doppler, and color-flow Echocardiogram Mechanical Engineering Teacher: Cynthia Crespo RVT Ht: 5 ft 6 in Wt: 191lbs BSA: 1.96 BP: 145/88 mmHg Indications: SOA,CO,SMOKER,HTN,A-FIB 2D Dimensions LVOT 2.27 cm (M/F) 1.5-2.5 LA Volume 49.30 mL LA Volume Index 25.15 mL/m2 (M/F) 16-34 M-Mode Dimensions RVDd 2.98 cm (0.9-2.6) LA Diam 4.18 cm (1.9-4.0) LVDd 5.92 cm (3.5-5.7) Ao Diam 3.33 cm (2.0-3.7) LVDs 4.35 cm (3.5-5.7) IVSd 0.68 cm (0.6-1.1) PWd 0.40 cm (0.6-1.1) EF (Teich) 51.10% FS 26.50% EDV (Teich) 174.60 mL TAPSE 2.26 (<1.7) ESV (Teich) 85.40 mL LV Diastology E Decel Time 157.00 (160-240 msec) E/A Ratio 0.9 MED E' 6.80 (< 7 cm/sec) E'/MED E' Ratio 7.37 (>14) LAT E' 6.20 (<10 cm/sec) E/LAT E' Ratio 8.08 (>14) Aortic Valve AO Peak GR. 4.80 mmHg Mitral Valve MV E Max Binh. 50.00 (40-130 cm/s) MV A Velocity 53.00 (40-130 cm/s) E/A Ratio 0.95 MV Decel. Time 157.00 (160-240 ms) MV PHT 46.00 ms Pulmonary Valve PV Peak Velocity 77.00 (50-150 cm/s) Left Ventricle The left ventricle is normal size. The left ventricular systolic function is normal. The left ventricular ejection fraction is within the normal range. There is normal left ventricular wall thickness. There is normal LV segmental wall motion. The left ventricular diastolic function is normal. LVEF is 55%. Right Ventricle The right ventricle is normal size. The right ventricular systolic function is normal. Atria The left atrium size is normal. The right atrium size is normal. There is no Doppler evidence of interatrial shunt. Aortic Valve The aortic valve opens well. There is no aortic valvular stenosis. No aortic regurgitation is present. Mitral Valve The mitral valve is normal in structure. No evidence of mitral valve stenosis. Mild mitral regurgitation. Tricuspid Valve The tricuspid valve leaflets are thin and pliable. Trace tricuspid regurgitation. There is insufficient TR jet to estimate RVSP. Pulmonic Valve The pulmonary valve is normal in structure. Trace pulmonic regurgitation. Great Vessels The aortic root is normal in size. The ascending aorta is normal in size. There is atherosclerosis noted in the ascending aorta. IVC is normal in size and collapses >50% with inspiration. Pericardium There is no pericardial effusion. Other Information Study Quality: Adequate Conclusion Normal biventricular systolic function. No significant valvular disease. Electronically signed by : Acacia Loza, 04/12/2023 12:24:29
== END ==
PROVIDERS: PCP Emergency Medicine; Visit Provider Internal Medicine
DX: R06.00 Dyspnea, unspecified (principal); R06.01 Orthopnea; R07.9 Chest pain, unspecified; R42 Dizziness and giddiness; F17.209 Nicotine dependence, unspecified, with unspecified nicotine-induced disorders; I48.0 Paroxysmal atrial fibrillation; R94.31 Abnormal electrocardiogram [ECG] [EKG]
CPT/HCPCS: 93306

== ENCOUNTER → 2023-05-09 14:34 | Outpatient (CLI) | payer MEDICAID, SELFPAY ==
--- NOTE | 2023-05-09 14:34 | CT_ITS ---
FINAL REPORT CLINICAL HISTORY: lung cancer screening SMOKES 1 1/2 PKS PER DAY X 45 YRS HX OF [place] COMPARISON: None FINDINGS: CT CHEST LOW DOSE SCREENING HISTORY: Screening exam for lung cancer. Current smoker, 65 pack year smoking history DOSE: CTDIvol: 2.9 mGy, DLP: 117.77 mGy*cm COMPARISON: None . TECHNIQUE: Axial CT without IV contrast administration using low dose protocol FINDINGS: Mild changes of emphysema are present as well as mild scarring bilaterally. Several calcified granulomas are identified. No pulmonary lesions are seen suspicious for neoplasm. No pleural or pericardial effusion is seen . No adenopathy or mass lesion is present . The gallbladder has been surgically resected. IMPRESSION: Mild changes of emphysema and mild scarring. No focal nodules, masses, or infiltrates are present. LUNG RADS CATEGORY 1 RECOMMENDATION: 12 month LDCT follow up Reviewed, Interpreted and Dictated by Tacho Sifuentes III, MD Transcribed by Melvi Escoto Authenticated and . [facility]
== END ==
PROVIDERS: PCP Emergency Medicine; Visit Provider Emergency Medicine
DX: Z87.891 Personal history of nicotine dependence (principal)
CPT/HCPCS: 71271

== ENCOUNTER → 2023-05-09 15:01 | Outpatient (CLI) | payer MEDICAID, SELFPAY ==
[2023-05-09 17:12] LABS: Vitamin B12 289 pg/mL (239-931)
[2023-05-09 17:27] LABS: Folate 4.43 ng/mL
== END ==
PROVIDERS: PCP Emergency Medicine; Visit Provider Nurse Practitioner Family
DX: R25.1 Tremor, unspecified (principal); R42 Dizziness and giddiness
CPT/HCPCS: 36415; 82607; 82746

== ENCOUNTER → 2023-05-19 09:43 | Outpatient (CLI) | payer MEDICAID, SELFPAY ==
--- NOTE | 2023-05-19 11:16 | CA_ITS ---
APPROVED REPORT Exam: Exercise Treadmill Technologist: Courtney Vasquez, HR: 68 bpm BP: 169/88 mmHg Rhythm: NSR Medical History Medications: Amlodipine,,,,, Lisinopril,,,,, Gabapentin,,,,, ClonAZEPAM,,,,, XaRELTO,,,,, Albuterol,,,,, Trazodone,,,,, Toprol XL,,,,, PEROcet,,,,, MuPirocin 2%,,,,, Lidocaine 5%,,,,, Diclofenac Sodium 1%,,,,, Stress Test Details Test: [place] HR Resting HR: 77 bpm Max Heart Rate (APMHR): 157 bpm Max HR Achieved: 109 bpm Target HR (85% APMHR): 133 bpm % of APMHR: 69 Recovery HR: 71 bpm HR response to stress: Blunted HR response to stress BP Resting BP: 157.0/86 mmHg Max BP: 215/90 mmHg Recovery BP: 175.0/77.0 mmHg BP response to stress: Abnormal hypertensive response to stress. ECG Resting ECG: NSR, cannot R/O old septal [place], T wave changes in lateral leads Stress ECG: No significant ST changes Arrhythmia: PACs Recovery ECG: No significant ST changes Recovery Arrhythmia: PACs Clinical Exercise duration: 02:35 min Highest Stage Achieved: I Exercise capacity: 4.6 METs Overall Exercise Capacity for Age: Poor Stress ECG Conclusion This was a suboptimal stress test as the patient could not achieve target HR. The patient could not exercise beyond 2 minutes, 35 seconds due to mechanical stumbling on treadmill due to leg pain and weakness. The test was stopped due to SOA & Claudication. The patient had hypertensive BP response to exercise. Max HR: 109 % of PM: 69% Max BP: 215/90 mmHg METs: 4.6 Test stopped due to: Claudication, SOA Symptoms: Mild chest pressure, SOA, claudication. Arrhythmias/Ectopy: Rare PAC. ST-T Changes: Within normal ST response to exercise for HR achieved. Conclusion: Suboptimal and non-diagnostic GXT due to extremely limited exercise tolerance & inadequate HR response. GXT only (no imaging) As this was a nondiagnostic stress test, alternative diagnostic modalities are recommended for further evaluation of ischemia, if clinically indicated. Test Summary REST . . . . . . . Sitting REST . . . . . . . Standing REST 03:27 0.0 0.0 77 . 157/ 86 . . Stage 1 01:00 10.0 1.7 94 . . . . Stage 1 02:00 10.0 1.7 105 . 162/ 98 . . Stage 1 02:35 10.0 1.7 108 . 162/ 98 . Stop exercise at 02:35 RECOVERY 01:00 0.0 0.0 84 . . . . RECOVERY 02:00 0.0 0.0 67 . . . . RECOVERY 03:00 0.0 0.0 65 . 215/ 90 . . RECOVERY 04:00 0.0 0.0 66 . 181/ 95 . . RECOVERY 05:00 0.0 0.0 71 . 181/ 95 . . RECOVERY 06:00 0.0 0.0 68 . 180/ 93 . . RECOVERY 07:00 0.0 0.0 66 . 175/ 97 . . RECOVERY 07:18 0.0 0.0 69 . 175/ 97 . . Electronically signed by : Acacia Loza MD 05/28/2023 23:03:22
== END ==
PROVIDERS: PCP Emergency Medicine; Visit Provider Physician Assistant
DX: R06.02 Shortness of breath (principal); I48.0 Paroxysmal atrial fibrillation; R94.31 Abnormal electrocardiogram [ECG] [EKG]
CPT/HCPCS: 93017

== ENCOUNTER → 2023-05-22 09:55 | Outpatient (CLI) | payer MEDICAID, SELFPAY ==
--- NOTE | 2023-05-22 10:24 | PC.NURSE ---
Pre and Post Spirometry completed without incident. Albuterol 0.083% given, per protocol, Pt tolerated tx well.
== END ==
PROVIDERS: PCP Emergency Medicine; Visit Provider Emergency Medicine
DX: J43.9 Emphysema, unspecified (principal)
CPT/HCPCS: 94060

== ENCOUNTER → 2023-06-02 07:46 | Outpatient (CLI) | payer MEDICAID, SELFPAY ==
--- NOTE | 2023-06-02 | CA_ITS ---
APPROVED REPORT Exam: Pharmacologic Technologist: Courtney Vasquez, Ht: 5 ft 6 in Wt: 193 lbs BSA: 1.97 m2 HR: 53 bpm BP: 146/79 mmHg Medical History Medications: Amlodipine,,,,, Lisinopril,,,,, Gabapentin,,,,, XaRELTO,,,,, Albuterol,,,,, KloNOPIN,,,,, Trazodone,,,,, Toprol XL,,,,, Acetaminophen-codeine,,,,, MuPirocin 2%,,,,, Lidocaine 5%,,,,, Diclofenac Sodium 1%,,,,, Stress Test Details Test: LEXISCAN Reason for pharmacologic stress test: physical limitation. HR Resting HR: 58 bpm Max Heart Rate (APMHR): 157 bpm Max HR Achieved: 85 bpm Target HR (85% APMHR): 133 bpm % of APMHR: 54 Recovery HR: 66 bpm BP Resting BP: 146.0/79.0 mmHg Max BP: 169.0/85.0 mmHg Recovery BP: 161.0/83.0 mmHg ECG Resting ECG: sinus juan antonio, leftward axis, cannot R/O old septal [place] Clinical Exercise duration: 04:05 min Highest Stage Achieved: Exercise capacity: 1.0 METs Stress ECG Conclusion Symptoms: mild chest pressure, SOA, nausea. Arrhythmias/Ectopy: None ST-T Changes: No significant changes. Conclusion: Unremarkable Lexiscan stress. Myoview images reported separately. Test Summary REST . . . . . . . Resting REST 03:30 . . 58 . 146/ 79 . . Stage 1 01:00 . . 71 . . . . Stage 2 01:00 . . 79 . 157/ 86 . . Stage 3 01:00 . . 76 . . . . Stage 4 01:00 . . 76 . 169/ 85 . . Stage 4 01:05 . . 75 . 169/ 85 . Stop exercise at 04:05 RECOVERY 01:00 . . 74 . 162/ 85 . . RECOVERY 02:00 . . 70 . 165/ 88 . . RECOVERY 03:00 . . 68 . 165/ 88 . . RECOVERY 03:23 . . 71 . 161/ 83 . . Electronically signed by : Acacia Loza MD 06/08/2023 00:03:56
--- NOTE | 2023-06-02 07:57 | NM_ITS ---
APPROVED REPORT Exam: Nuclear Stress Test Indication: CHEST PAIN..SOA..PALPITATIONS..FATIGUE Patient Location: Outpatient Stress Tech: Courtney Arrington [place] Tech:Jeanette Ramos ARRT RT(R)(N) Ht: 5 ft 5 in Wt: 191 lbs HR: 58 bpm BP: 146/79 mmHg BSA: 1.94 m2 Rhythm: NSR TID: 1.21 BMI: 31.7 History: CHEST PAIN..SOA..PALPITATIONS..FATIGUE Procedure: Patient received 0.4 mg of intravenous Lexiscan, resting heart rate 58 bpm, resting blood pressure 146/79 mmHg, with Lexiscan maximum heart rate achieved was 85 bpm which is 85 % of the maximum predicted heart rate and blood pressure was 169/85 mmHg. With Lexiscan, patient denied any complaint of chest pain. Cardiac Stress and Resting SPECT Images: Cardiac Stress and Resting SPECT images were obtained using technetium 99m Myoview 32.8 mCi stress and 10.32 mCi at rest. Resting and stress imaging in supine and prone positions demonstrate a large sized, mild, partially reversible perfusion defect in the septal and inferoseptal LV everett, from the base and extending towards the inferoapical region. There is increased transient ischemic dilatation ratio (TID 1.21), suggestive of possible multivessel disease or balanced ischemia. Gated imaging demonstrates normal global and regional LV systolic function. LVEF is calculated at 54%. Conclusion: Large sized, mild, partially reversible perfusion defect in the septal and inferoseptal LV everett, from the base and extending towards the inferoapical region. There is increased transient ischemic dilatation ratio (TID 1.21), suggestive of possible multivessel disease or balanced ischemia. Gated imaging demonstrates normal global and regional LV systolic function. LVEF is calculated at 54%. Electronically signed by : Acacia Loza MD 06/08/2023 00:07:58
== END ==
LOC: RAD 07:46
PROVIDERS: PCP Emergency Medicine; Visit Provider Nurse Practitioner Family
DX: I10 Essential (primary) hypertension (principal); R06.09 Other forms of dyspnea; R07.9 Chest pain, unspecified; Z72.0 Tobacco use
CPT/HCPCS: 78452; 93017; A9502; J2785

== ENCOUNTER → 2023-06-05 13:27 | Outpatient (CLI) | payer MEDICAID, SELFPAY ==
[2023-06-05 18:18] LABS: Amphetamine/Metha Screen,Urine Negative ng/ml (<1000); Benzodiazepines Screen,Urine Negative ng/ml (<200)
[2023-06-05 18:20] LABS: Cannabinoid Screen,Urine Negative ng/ml (<50); Cocaine Screen,Urine Negative ng/ml (<300)
[2023-06-05 18:21] LABS: Methadone Screen,Urine Negative ng/ml (<300)
[2023-06-05 18:22] LABS: Opiate Screen,Urine Positive ng/ml (<300); Phencyclidine Screen,Urine Negative ng/ml (<25)
[2023-06-05 18:30] LABS: Barbiturates Screen,Urine Negative ng/ml (<200)
== END ==
PROVIDERS: PCP Emergency Medicine; Visit Provider Emergency Medicine
DX: Z79.899 Other long term (current) drug therapy (principal)
CPT/HCPCS: 80305

== ENCOUNTER 2023-06-27 07:57 | Day surgery (SDC) | payer MEDICAID, SELFPAY ==
[2023-06-27] VITALS (15 sets, daily range): BP systolic 96–193; BP diastolic 63–93; PULSE 69–98; RESP 12–19; O2SAT 92–99; BMI 30.9
--- NOTE | 2023-06-27 07:10 | IR_ITS ---
APPROVED REPORT Patient Location: Outpatient Master Ship: WINSTON Mendoza RT (R) PROCEDURES Left heart catheterization Left ventriculogram Selective coronary angiogram Drug-eluting stent deployment to the distal dominant right coronary artery extending into the proximal posterior descending artery INDICATION Coronary artery disease, Abnormal Myoview, Ischemic SVT Informed consent was obtained prior to the procedure. COMPLICATIONS None Estimated Blood Loss: Less than 10 ml TECHNIQUE One percent lidocaine used to anesthetize the right anterior aspect of the wrist. The right radial artery was accessed via the Seldinger technique. A 6 [place] sheath was placed in the right radial artery. 2.5 mg of Verapamil, 800 mcg of nitroglycerin, 1mg Lidocaine and 5000 U Heparin were given through the arterial sheath. The papa catheter was also used to perform left heart catheterization, left ventriculogram and selective coronary angiogram. At the end the diagnostic angiogram therapeutic heparin was administered giving a therapeutic ACT and the guide catheter was placed in the right coronary artery followed by Choice PT extra-support wire being placed in the posterior descending artery. A 3.5 x 18 mm Shohola frontier stent was deployed at 16 glenna reducing the stenosis. A 4 mm x 8 mm noncompliant balloon was then placed in the proximal posterior descending artery in the midportion of the stent and deployed at 24 glenna to post dilate. EDWIGE-3 flow was present before and after the procedure. There was no angiographic evidence of jailing or impedance of blood flow through the large posterior lateral branch. 600 mcg of intracoronary nitroglycerin was administered which demonstrated wide patency of the distal dominant right coronary artery as well as the posterior lateral branch and the posterior descending artery. At the end the procedure the apparatus was removed the sheath was removed and hemostasis was achieved using TR banding patient was transferred to the postop putting in stable condition ANGIOGRAPHIC RESULTS The left main artery Normal The left anterior descending artery Has proximal 20 to 30% stenoses with mid vessel 20 and 30% stenoses. A large first diagonal artery has an ostial concentric 80% stenosis The circumflex artery Nondominant with diffuse 20% luminal regularities The right coronary artery Massively large dominant vessel and has diffuse mid vessel 20% stenoses. Distally there is a concentric 80% stenosis which extends into the proximal portion of the large posterior descending artery. A large posterior lateral branch is present and has mild mid vessel 30% disease The HUNT ventriculogram reveals Normal 65% The left ventricular end-diastolic pressure 10 mmHg IMPRESSION Critical distal dominant right coronary disease which extended into a large posterior descending artery Successful stenting of the distal dominant right coronary artery extending in the proximal posterior descending artery critical disease reduced to 0% with 1 drug-eluting stent Persistent moderate to severe disease in the first diagonal artery which is typically best treated medically as he has responded favorably to statin therapy Normal ejection fraction Normal left ventricular end-diastolic pressure PLAN 1. Dual antiplatelet therapy 2. Medical management 3. Risk factor modification 4. Cardiac rehabilitation 5. LDL less than 55 to be achieved with high intensity statin Electronically signed by : Jay Bauer MD 06/27/2023 11:24:58
[2023-06-27 08:42] LABS: Chloride 105 mmol/L (98-107)
[2023-06-27 08:43] LABS: Potassium 4.2 mmoL/L (3.5-5.1); Sodium 138 mmol/L (136-145)
[2023-06-27 08:45] LABS: Basophils # 0.1 K/mm3 (0-0.2); Basophils % 0.6 % (0.1-2.0); Eosinophils # 0.3 K/mm3 (0.0-0.4); Eosinophils % 2.1 % (0.1-12.0); Hematocrit 47.7 % (42.0-52.0); Hemoglobin 16.2 g/dL (14.1-18.0); Lymphocytes # 2.4 K/mm3 (0.7-4.5); Mean Corpuscular HGB Conc 33.9 g/dL (31.8-35.4); Mean Corpuscular Hemoglobin 34.1 pg (27.0-31.2); Mean Corpuscular Volume 100.5 fl (80-94); Mean Platelet Volume 8.3 fl (7.4-10.4); Monocytes # 0.6 K/mm3 (0.1-1.0); Monocytes % 4.6 % (1.7-9.3); Neutrophils # 9.4 K/mm3 (1.8-7.8); Neutrophils % 73.8 % (37.0-80.0); Platelet Count 241 K/mm3 (142-424); Red Blood Count 4.75 M/mm3 (4.60-6.20); Red Cell Distribution Width 13.3 % (11.5-17.5); White Blood Count 12.8 K/mm3 (4.8-10.8)
[2023-06-27 08:46] LABS: Anion Gap 10.2 mEq/L (5-15); Blood Urea Nitrogen 12 mg/dl (9-20); Calcium 8.9 mg/dl (8.4-10.2); Carbon Dioxide 27 mmol/L (22.0-30.0); Creatinine Clearance Estimated 93 mL/min (50-200); Estimated Glomerular Filt Rate 85 ml/min (>60); GFR (African American) 103 ML/MIN (>60); Glucose 105 mg/dl (74-100)
[2023-06-27 11:41] LABS: CATHL Activated Clotting Time > 400 SEC (74-125)
--- NOTE | 2023-06-27 15:25 | SUR.PHASEII ---
radial band removed at 1450. no bleeding or issues noted.
== END 2023-06-27 15:20 | disposition home or self-care (01) ==
PROVIDERS: PCP Emergency Medicine; Visit Provider Internal Medicine
DX: R94.30 Abnormal result of cardiovascular function study, unspecified (principal); I10 Essential (primary) hypertension; I25.118 Atherosclerotic heart disease of native coronary artery with other forms of angina pectoris; F17.209 Nicotine dependence, unspecified, with unspecified nicotine-induced disorders; I48.0 Paroxysmal atrial fibrillation; R06.00 Dyspnea, unspecified; R07.9 Chest pain, unspecified
CPT/HCPCS: 80048; 85025; 85347; 92928; 93458; 99152; C1725; C1769; C1876; C9600; J1644; Q9967

== ENCOUNTER → 2023-07-05 09:06 | Outpatient (CLI) | payer MEDICAID, SELFPAY ==
[2023-07-05 09:37] LABS: Basophils # 0.1 K/mm3 (0-0.2); Basophils % 0.7 % (0.1-2.0); Eosinophils # 0.2 K/mm3 (0.0-0.4); Eosinophils % 2.8 % (0.1-12.0); Hematocrit 43.8 % (42.0-52.0); Lymphocytes # 2.2 K/mm3 (0.7-4.5); Mean Corpuscular HGB Conc 34.3 g/dL (31.8-35.4); Mean Corpuscular Hemoglobin 33.7 pg (27.0-31.2); Mean Corpuscular Volume 98.1 fl (80-94); Monocytes # 0.5 K/mm3 (0.1-1.0); Monocytes % 6.4 % (1.7-9.3); Neutrophils # 4.8 K/mm3 (1.8-7.8); Platelet Count 305 K/mm3 (142-424); Red Blood Count 4.47 M/mm3 (4.60-6.20); Red Cell Distribution Width 13.1 % (11.5-17.5); White Blood Count 7.7 K/mm3 (4.8-10.8)
[2023-07-05 10:11] LABS: Free T4 (Free Thyroxine) 0.86 ng/dl (0.78-2.19)
[2023-07-05 10:42] LABS: Alanine Aminotransferase 17 U/L (12-78); Albumin Level 4.1 g/dl (3.5-5.0); Alkaline Phosphatase 78 U/L (38-126); Anion Gap 16.3 mEq/L (5-15); Aspartate Amino Transferase 18 U/L (17-59); Bilirubin,Direct 0.1 mg/dl (0.0-0.4); Bilirubin,Unconjugated 0.1 mg/dL (0.0-1.1); Blood Urea Nitrogen 10 mg/dl (9-20); Calcium 9.4 mg/dl (8.4-10.2); Carbon Dioxide 25 mmol/L (22.0-30.0); Chloride 103 mmol/L (98-107); Chol/HDL Ratio 3.5 (1-3.5); Cholesterol 99 mg/dl (140-200); Estimated Glomerular Filt Rate 98 ml/min (>60); GFR (African American) 118 ML/MIN (>60); Glucose 79 mg/dl (74-100); HDL Cholesterol 28 mg/dl (40-60); Potassium 5.3 mmoL/L (3.5-5.1); Sodium 139 mmol/L (136-145); Total Protein,Serum 6.6 g/dl (6.3-8.2); Triglycerides 112 mg/dl (30-150); VLDL Cholesterol 22 mg/dL (0-40)
[2023-07-05 10:51] LABS: Bilirubin,Total 0.1 mg/dl (0.2-1.3)
[2023-07-05 11:07] LABS: Direct LDL Cholesterol 60.27 mg/dL (100-129)
[2023-07-05 11:12] LABS: Thyroid Stimulating Hormone 1.68 uIU/mL (0.465-4.68)
== END ==
PROVIDERS: PCP Emergency Medicine; Visit Provider Physician Assistant
DX: I20.9 Angina pectoris, unspecified (principal); I48.0 Paroxysmal atrial fibrillation; R94.30 Abnormal result of cardiovascular function study, unspecified; Z95.5 Presence of coronary angioplasty implant and graft; Z72.0 Tobacco use; I10 Essential (primary) hypertension
CPT/HCPCS: 36415; 80048; 80061; 80076; 83735; 84439; 84443; 85025

== ENCOUNTER 2023-08-18 09:00 | Outpatient (RCR) | payer MEDICAID, SELFPAY ==
--- NOTE | 2023-07-17 17:02 | HMH.OTOPEV ---
OT Inpatient Evaluation Rehab OT Outpatient Eval Start: 07/17/23 13:46 Freq: Status: Active Protocol: Document 07/17/23 13:47 SERGIODIOR (Rec: 07/17/23 14:10 MARIANNA [id number]) E-signed By Julisa Hill, OT Outpatient Therapy Subjective History Subjective History 63 year old male referred to skilled OP OT services for R shld pain. Patient verbalize having R shld pain consistently for the past 6 months with no relief. Patient has recieved two cortisone shots within the past 1-2 years with minimal relief. patient reported no injuries to R shld in the past. Level of pain today (0-10) 7 Pain scale - at its best (0-10) 7 Pain scale - at its worst (0-10) 9 Shoulder/Elbow Eval Shoulder Objective Measurements Shoulder ROM Right Shoulder Abduction Active Range of 90 Motion (degrees) Shoulder Flexion Active Range of Motion 90 (degrees) Query Text: Shoulder External Rotation Active Range 40 of Motion (degrees) Shoulder Internal Rotation Active Range 50 of Motion (degrees) pain with active ROM shoulder exam right standard Shoulder MMT Shoulder Abduction Strength Grade 3- Fair- Shoulder Flexion Strength Grade 3- Fair- Shoulder Horizontal Abduction Strength 3- Fair- Grade Shoulder Horizontal Adduction Strength 3- Fair- Grade Infraspinatus/Teres Minor Strength Grade 3- Fair- Shoulder External Rotation Strength 3- Fair- Grade Shoulder Internal Rotation Strength 3- Fair- Grade Elbow Objective Measurements QuickDASH Activities Please rate your ability to do the following activities in the last week by selecting the number below the appropriate response. 1. Open a tight or new jar. No difficulty 2. Do heavy human relations manager (e.g., wash Mild difficulty everett, floors). 3. Carry a shopping bag or briefcase. No difficulty 4. Wash your back. No difficulty 5. Use a knife to cut food. No difficulty 6. Recreational activities in which you Moderate difficulty take some force or impact through your arm, shoulder, or hand (e.g., golf, hammering, tennis, etc.). 7. During the past week, to what extent Slightly has your arm, shoulder or hand problem interfered with your normal social activities with family, friends, neighbors or groups? 8. During the past week, were you Slightly limited limited in your work or other regular daily activites as a result of your arm, shoulder or hand problem? 9. Arm, shoulder or hand pain. Moderate 10. Tingling (pins and needles) in your Mild arm, shoulder or hand. 11. During the past week, how much No difficulty difficulty have you had sleeping because of the pain in your arm, shoulder or hand? Quick DASH 19 OT Outpatient Assessment Impairments Problems/Impairments Impaired Range of Motion, Impaired Strength,Subjective C /O Pain Prognosis Rehab Potential Good Clinical Impression Consistent with Diagnosis Yes Short Term Goals Number of Weeks 2 Increase Range of Motion Yes: Improve AROM of R UE shld flex: 120; abd: 120; er: 50; ir: 60 Increase Strength Yes: Improve RUE shld strength to 3+ to 4-/5 throughout Decrease Subjective C/O Pain Yes: 8/10 pain at worst Patient to be Ind w/ Advanced HEP Yes: AAROM Improve Quick Dash Score Yes: Strengthening Operations Lieutenant Goals Number of Weeks 4 Increase Range of Motion Yes: Improve AROM of R UE shld flex: 140; abd: 140; er: 60; ir: 70 Increase Strength Yes: Improve RUE shld strength to 4-/5 to 4/5 throughout Decrease Subjective C/O Pain Yes: 7/10 pain at worst Patient to be Ind w/ Advanced HEP Yes: AROM Improve Quick Dash Score Yes: Strengthening Outpatient Therapy Plan of Care Treatment Plan May Include Therapeutic Exercise Including Home Yes Exercise Program Manual Therapy Techniques Yes Therapeutic Activities to Return to Yes Previous Functional/Work Level Thermal Modalities Yes Electrical Stimulation Yes Ultrasound/Phonophoresis Yes Iontophoresis Yes Eval/Re-Eval Yes Aquatic Therapy Yes Frequency Times per week 2x/wk Duration Number of Weeks 4 weeks Addendums This patient is a candidate for social No or vocational rehab? Patient/Guardian verbally acknowledges Yes understanding of treatment program and consents to further treatment? Patient/Guardian verbally acknowledges Yes understanding of diagnosis, prognosis and goals for treatment? Eval Complexity OT Charge 94022 - Low Complexity PHYSICIAN CERTIFICATION: I certify the specified therapy services for Karthikeyan Carter are required, authorized, and reviewed every 30 days.
== END 2023-08-18 10:00 | disposition home or self-care (01) ==
LOC: OT 09:00
PROVIDERS: PCP Emergency Medicine; Visit Provider Emergency Medicine
DX: M25.511 Pain in right shoulder (principal)
CPT/HCPCS: 97010; 97014; 97110; 97140; 97164; 97165; 97530; G0283

== ENCOUNTER 2023-09-01 09:54 | Outpatient (CLI) | payer MEDICAID, SELFPAY ==
[2023-09-01 12:47] LABS: Chloride 105 mmol/L (98-107); Sodium 139 mmol/L (136-145)
[2023-09-01 12:49] LABS: Blood Urea Nitrogen 13 mg/dl (9-20); Carbon Dioxide 26 mmol/L (22.0-30.0); Estimated Glomerular Filt Rate 85 ml/min (>60); GFR (African American) 103 ML/MIN (>60); Glucose 69 mg/dl (74-100)
[2023-09-01 13:07] LABS: Amphetamine/Metha Screen,Urine Negative ng/ml (<1000); Barbiturates Screen,Urine Negative ng/ml (<200); Benzodiazepines Screen,Urine Negative ng/ml (<200); Cannabinoid Screen,Urine Negative ng/ml (<50); Cocaine Screen,Urine Negative ng/ml (<300); Methadone Screen,Urine Negative ng/ml (<300); Opiate Screen,Urine Positive ng/ml (<300); Phencyclidine Screen,Urine Negative ng/ml (<25)
== END 2023-09-01 23:59 ==
LOC: LAB.DROPOF 09-02 09:54
PROVIDERS: PCP Internal Medicine; Visit Provider Internal Medicine
DX: M54.16 Radiculopathy, lumbar region (principal); E87.5 Hyperkalemia; Z79.899 Other long term (current) drug therapy
CPT/HCPCS: 80048; 80307

== ENCOUNTER 2023-11-03 13:21 | Outpatient (CLI) | payer MEDICAID, SELFPAY ==
--- NOTE | 2023-11-03 13:27 | XR_ITS ---
FINAL REPORT CLINICAL HISTORY: Right knee Pain COMPARISON: None FINDINGS: Two views of the right knee were obtained. There is no evidence of fracture or dislocation. The bony alignment is normal. The joint spaces are preserved. There is no evidence of joint effusion. No localized soft tissue abnormality is identified. IMPRESSION: No acute abnormality identified. Reviewed, Interpreted and Dictated by Tacho Sifuentes III, MD Transcribed by Loretta Loo Authenticated and [facility]
--- NOTE | 2023-11-03 13:27 | XR_ITS ---
FINAL REPORT CLINICAL HISTORY: Left knee pain COMPARISON: None FINDINGS: Two views of the left knee were obtained. There is no evidence of fracture or dislocation. The bony alignment is normal. The joint spaces are preserved. There is no evidence of joint effusion. No localized soft tissue abnormality is seen. There is no evidence of foreign body. IMPRESSION: No acute abnormality identified. Reviewed, Interpreted and Dictated by Tacho Sifuentes III, MD Transcribed by Loretta Loo Authenticated and [facility]
== END 2023-11-03 23:59 ==
LOC: RAD 13:21
PROVIDERS: PCP Internal Medicine; Visit Provider Internal Medicine
DX: M25.561 Pain in right knee (principal); M25.562 Pain in left knee
CPT/HCPCS: 73560

== ENCOUNTER 2023-11-29 13:54 | Outpatient (CLI) | payer MEDICAID, SELFPAY ==
--- NOTE | 2023-11-29 13:54 | MR_ITS ---
FINAL REPORT CLINICAL HISTORY: Pain, immobility FINDINGS: Multiplanar MR imaging of the right shoulder was performed without contrast. Motion artifact is identified on many of the images. The tendons of the rotator cuff are intact without evidence of rotator cuff tear. There is mild AC joint arthrosis. A small amount of fluid is seen in the subacromial/subdeltoid bursa. There is labral degeneration, posterior labral tear is not excluded. There is a probable subchondral cyst in the posterior humeral head. Subchondral cysts are seen in the glenoid. There is jjli-to-jdyccesk glenohumeral joint degenerative change. There is thickening of the joint capsule at the axillary recess consistent with adhesive capsulitis. The long head of the biceps tendon is intact. No significant glenohumeral joint effusion is seen. There is no evidence of fracture or dislocation. The musculature is intact. There is no evidence of soft tissue mass. IMPRESSION: Labral degeneration, posterior labral tear is not excluded. Adhesive capsulitis. Degenerative changes as detailed above. Reviewed, Interpreted and Dictated by Tacho Sifuentes III, MD Transcribed by Iesha Delgado Authenticated and [facility]
== END 2023-11-29 23:59 ==
LOC: RAD 13:54
PROVIDERS: PCP Internal Medicine; Visit Provider Internal Medicine
DX: M25.511 Pain in right shoulder (principal)
CPT/HCPCS: 73221

== ENCOUNTER 2024-01-30 14:18 | Outpatient (CLI) | payer MEDICAID, SELFPAY ==
[2024-01-30 18:09] LABS: Basophils # 0.1 K/mm3 (0-0.2); Basophils % 0.9 % (0.1-2.0); Eosinophils # 0.2 K/mm3 (0.0-0.4); Eosinophils % 2.4 % (0.1-12.0); Hematocrit 44.5 % (42.0-52.0); Hemoglobin 14.3 g/dL (14.1-18.0); Lymphocytes # 2.8 K/mm3 (0.7-4.5); Lymphocytes % 32.4 % (10-50); Mean Corpuscular HGB Conc 32.2 g/dL (31.8-35.4); Mean Corpuscular Hemoglobin 32.3 pg (27.0-31.2); Mean Corpuscular Volume 100.3 fl (80-94); Mean Platelet Volume 8.5 fl (7.4-10.4); Monocytes # 0.5 K/mm3 (0.1-1.0); Monocytes % 5.4 % (1.7-9.3); Neutrophils # 5.2 K/mm3 (1.8-7.8); Neutrophils % 58.9 % (37.0-80.0); Platelet Count 264 K/mm3 (142-424); Red Blood Count 4.44 M/mm3 (4.60-6.20); Red Cell Distribution Width 14.3 % (11.5-17.5); White Blood Count 8.8 K/mm3 (4.8-10.8)
[2024-01-30 18:34] LABS: Alanine Aminotransferase 24 U/L (12-78); Albumin Level 4.1 g/dl (3.5-5.0); Albumin/Globulin Ratio 1.6 (1.1-1.8); Alkaline Phosphatase 75 U/L (38-126); Anion Gap 15.2 mEq/L (5-15); Aspartate Amino Transferase 24 U/L (17-59); Bilirubin,Total 0.3 mg/dl (0.2-1.3); Blood Urea Nitrogen 9 mg/dl (9-20); Calcium 9.6 mg/dl (8.4-10.2); Carbon Dioxide 26 mmol/L (22.0-30.0); Chloride 103 mmol/L (98-107); Chol/HDL Ratio 4.9 (1-3.5); Cholesterol 161 mg/dl (140-200); Estimated Glomerular Filt Rate 85 ml/min (>60); GFR (African American) 103 ML/MIN (>60); Globulin 2.5 g/dL (1.3-3.2); Glucose 73 mg/dl (74-100); HDL Cholesterol 33 mg/dl (40-60); Potassium 5.2 mmoL/L (3.5-5.1); Sodium 139 mmol/L (136-145); Total Protein,Serum 6.6 g/dl (6.3-8.2); Triglycerides 174 mg/dl (30-150); VLDL Cholesterol 35 mg/dL (0-40)
[2024-01-30 18:44] LABS: Direct LDL Cholesterol 98.02 mg/dL (100-129)
[2024-01-30 19:04] LABS: Prostate Specific Ag Screen 1.3 ng/ml (0.0-4.0)
== END 2024-01-30 23:59 | disposition home or self-care (01) ==
LOC: LAB.DROPOF 01-31 14:19
PROVIDERS: PCP Family Medicine; Visit Provider Family Medicine
DX: R53.83 Other fatigue (principal); Z12.5 Encounter for screening for malignant neoplasm of prostate
CPT/HCPCS: 80053; 80061; 85025; G0103

== ENCOUNTER 2024-03-29 15:14 | Emergency (ER) | payer MEDICAID, SELFPAY ==
[2024-03-29] VITALS (8 sets, daily range): BP systolic 118–146; BP diastolic 72–86; PULSE 64–130; RESP 16–22; TEMP 36.7–36.8; O2SAT 95–97; BMI 30.5
--- NOTE | 2024-03-29 15:12 | ECG_ITS ---
APPROVED REPORT Exam: Resting ECG HR:114 bpm ECG Measurements Heart Rate 114 AXES QRSd 88 QRS 43 QT 295 T 78 QTc 362 Conclusion ATRIAL FIBRILLATION WITH RAPID VENTRICULAR RESPONSE NONSPECIFIC ST & T-WAVE ABNORMALITY ABNORMAL RHYTHM ECG Electronically signed by : GERALDO RODRIGUEZ, 03/29/2024 21:20:11
--- NOTE | 2024-03-29 15:16 | XR_ITS ---
FINAL REPORT CLINICAL HISTORY: chest pain soa COMPARISON: 05/17/2022 FINDINGS: TWO-VIEW CHEST The heart size is normal. The mediastinum is normal. The lungs are clear. There is no pneumothorax. IMPRESSION: No acute cardiopulmonary process. Reviewed, Interpreted and Dictated by Jose Enrique Curtis MD Transcribed by Iesha Delgado Authenticated and . [facility]
--- NOTE | 2024-03-29 15:17 | [facility].EDCP ---
Discharge Plan Disposition Patient Disposition: Home, Self-Care Condition: Good Prescriptions Prescriptions: New amoxicillin-pot clavulanate 875-125 mg tablet 1 tab PO BID Qty: 20 0RF azithromycin 500 mg tablet See Rx Instructions .ROUTE .COMPLEX Qty: 3 0RF Rx Instructions: For 500 mg dose pack: take 500 mg once daily for 3 days prednisone 50 mg tablet 50 mg PO DAILY 4 Days Qty: 4 0RF No Action mupirocin 2 % ointment 1 applic topical BID Qty: 22 0RF nitroglycerin 0.4 mg tablet, sublingual 0.4 mg sublingual Q5M PRN (Reason: chest pain) Qty: 25 0RF Rx Instructions: do not exceed 3 doses per episode trazodone 50 mg tablet 50 mg PO HS Qty: 30 1RF hydroxyzine HCl 25 mg tablet 25 mg PO BID PRN (Reason: Anxiety or sleep) Qty: 30 0RF ramelteon 8 mg tablet 8 mg PO HS PRN (Reason: sleep) Qty: 30 0RF lidocaine 5 % adhesive patch,medicated 1 patch topical DAILY Qty: 30 0RF Rx Instructions: leave on most painful area for up to 12 hrs lisinopril 20 mg tablet 20 mg PO DAILY Qty: 90 3RF metoprolol succinate [Toprol XL] 25 mg tablet extended release 24 hr 25 mg PO BID Qty: 180 3RF amlodipine 5 mg tablet 5 mg PO DAILY Qty: 30 2RF acetaminophen-codeine 300-30 mg tablet 1 tab PO BID PRN (Reason: pain) Qty: 60 1RF albuterol sulfate 90 mcg/actuation HFA aerosol inhaler 1 inh inhalation QID PRN (Reason: shortness of breath or wheezing) Qty: 8.5 2RF clonazepam [Klonopin] 0.5 mg tablet 0.5 mg PO BID Qty: 60 0RF clopidogrel [Plavix] 75 mg tablet 75 mg PO DAILY 30 Days Qty: 30 6RF diclofenac sodium 1 % gel 2 g topical QID Qty: 100 0RF Rx Instructions: apply to single elbow, wrist or hand; for hand includes palm/fingers/back of hand duloxetine 30 mg capsule,delayed release(DR/EC) 30 mg PO BID Qty: 60 2RF gabapentin 100 mg capsule See Rx Instructions .ROUTE .COMPLEX Qty: 150 1RF Rx Instructions: Take one twice daily and three at night; rosuvastatin [Crestor] 40 mg tablet 40 mg PO DAILY Qty: 30 2RF Xarelto 20 mg tablet 20 mg PO DAILY Qty: 30 5RF Rx Instructions: must administer with evening meal aspirin [Kan Chewable Aspirin] 81 mg Tablet,Chewable 81 mg PO DAILY 30 Days Qty: 30 6RF Referrals Follow up/Referrals: Hung Varma MD [Primary Care Provider] - See instructions Activity Restrictions/Add. Instructions Additional Instructions/Restrictions: You were evaluated in the emergency department today and diagnosed with a COPD exacerbation. Please fiber picker your prescriptions at the pharmacy and take them as prescribed. Use your inhalers at home as instructed by your primary care provider. Follow-up closely with them over the next 3 to 4 days. Return to the emergency department for new or worsening symptoms Clinical Impressions Clinical Impression: Acute exacerbation of chronic obstructive pulmonary disease, Chest pain Instructions Patient Instructions: DI for Chronic Obstructive Pulmonary Disease, DI for Atypical Chest Pain Print Language Print Language: Icelandic Discharge ED Provider: Kaila Morales HPI General Chief Complaint: Chest Pain Stated Complaint: Chest pain Time Seen by Provider: 03/29/24 15:15 History of Present Illness HPI narrative: This patient is a 64-year-old male with a history of hypertension, hyperlipidemia, chronic atrial fibrillation on Xarelto, CAD, COPD, tobacco dependence presenting to the emergency department for evaluation with concern for chest pain. Patient states that for the last 3 to 4 days, he has been having midsternal chest pain that is worse with exertion. Nothing seems to make it better. He took nitroglycerin at home with no improvement. No other associated symptoms, such as shortness of breath, nausea, vomiting, changes in bowel movements, calf pain or swelling, or other concerns. He reports compliance with his home medications. He does report increase in activity, working outside getting rid of brush. Related Data Previous Rx's ?Medication ?Instructions ?Recorded lidocaine 5 % topical patch 1 patch topical DAILY #30 ea 12/14/22 mupirocin 2 % topical ointment 1 applic topical BID #22 grams 03/08/23 nitroglycerin 0.4 mg sublingual 0.4 mg sublingual Q5M PRN chest 06/15/23 tablet pain #25 tabs aspirin 81 mg chewable tablet 81 mg PO DAILY 30 days #30 tabs 06/27/23 (Kan Chewable Low Dose Aspirin) hydroxyzine HCl 25 mg tablet 25 mg PO BID PRN Anxiety or sleep 09/01/23 #30 tabs ramelteon 8 mg tablet 8 mg PO HS PRN sleep #30 tabs 09/01/23 trazodone 50 mg tablet 50 mg PO HS #30 tabs 09/01/23 lisinopril 20 mg tablet 20 mg PO DAILY #90 tabs 10/31/23 metoprolol succinate 25 mg 25 mg PO BID #180 tabs 10/31/23 tablet,extended release 24 hr (Toprol XL) acetaminophen 300 mg-codeine 30 mg 1 tab PO BID PRN pain #60 tabs 01/30/24 tablet albuterol sulfate 90 mcg/actuation 1 inh inhalation QID PRN shortness 01/30/24 aerosol inhaler of breath or wheezing #8.5 grams amlodipine 5 mg tablet 5 mg PO DAILY #30 tabs 01/30/24 clonazepam 0.5 mg tablet (Klonopin) 0.5 mg PO BID #60 tabs 01/30/24 clopidogrel 75 mg tablet (Plavix) 75 mg PO DAILY 30 days #30 tabs 01/30/24 diclofenac sodium 1 % topical gel 2 g topical QID #100 grams 01/30/24 duloxetine 30 mg capsule,delayed 30 mg PO BID #60 caps 01/30/24 release gabapentin 100 mg capsule See Rx Instructions .Route 01/30/24 .COMPLEX #150 caps rosuvastatin 40 mg tablet (Crestor) 40 mg PO DAILY #30 tabs 02/27/24 rivaroxaban 20 mg tablet (Xarelto) 20 mg PO DAILY #30 tabs 03/05/24 amoxicillin 875 mg-potassium 1 tab PO BID #20 tabs 03/29/24 clavulanate 125 mg tablet azithromycin 500 mg tablet See Rx Instructions PO .COMPLEX #3 03/29/24 tabs prednisone 50 mg tablet 50 mg PO DAILY 4 days #4 tabs 03/29/24 Allergies Allergy/AdvReac Type Severity Reaction Status Date / Time No Known Allergies Allergy Verified 02/15/24 13:23 [facility] Disclaimer: The information contained in this section may have been updated after the patient was seen, as this information can be updated by other users. Medical History Macrocytosis Anxiety Screening PSA (prostate specific antigen) Frozen shoulder Coronary artery disease Abnormal result of cardiovascular function study History of skin cancer PND (paroxysmal nocturnal dyspnea) Orthopnea Paroxysmal A-fib Abnormal Holter monitor finding Dyspnea Chest pain Surgical History History of coronary artery stent placement Family History Other No significant family history Social History Smoking Status: Current every day smoker tobacco type: cigarettes packs per day: 1 second hand exposure: Yes alcohol intake: never substance use type: denies use current occupational status: employed Travel in the last 8 weeks: None household members: spouse and children housing: house current occupational exposures/hazards: No caffeine: Yes ROS Obtained: Yes All systems reviewed & no additional complaints except as documented Physical Exam General General appearance: alert and in no apparent distress Head Head exam: atraumatic and normocephalic Eye Eye exam: Present normal appearance, PERRL and EOMI ENT ENT exam: Present normal exam, normal oropharynx, mucous membranes moist and normal external ear exam Neck Neck exam: Present normal inspection, full ROM and trachea midline; Absent tenderness Chest Chest inspection: Present normal inspection and symmetric chest wall rise; Absent tenderness Respiratory Respiratory exam: Present wheezes; Absent respiratory distress, stridor or accessory muscle use Cardiovascular Cardiovascular exam: Present regular rate and irregular rhythm Abdominal Exam Abdominal exam: Present soft; Absent distention, tenderness or guarding Extremities Exam Extremities exam: Present normal inspection, full ROM and normal capillary refill; Absent tenderness or edema Back Exam Back exam: Present normal inspection and full ROM; Absent tenderness Neurological Exam Neurological exam: Present alert, oriented X3, CN II-XII intact and normal gait; Absent motor sensory deficit Psychiatric Psychiatric exam: Present normal affect and normal mood Skin Skin exam: Present warm and dry HEART Score HEART Score HEART Score assessment performed?: Yes History (anamnesis): Slightly suspicious ECG: Normal Age: 45-65 years Risk factors: Atherosclerosis history Troponin: </= normal limit HEART Score: 3 Critical Care Critical Care Time Critical Care Time: No Medical Decision Making Rashaad Inquiry Pt receiving controlled substance: No Vital Signs Vital Signs: 03/29/24 15:15 03/29/24 15:24 03/29/24 15:31 Temperature 98.3 F Temperature Source Oral Pulse Rate 130 H 74 Pulse Rate [Right Radial] 130 H Respiratory Rate 20 18 Blood Pressure 133/74 Blood Pressure [Right Arm] 146/86 H Blood Pressure Mean [Right Arm] 106 Blood Pressure Source Blood Pressure Position 02 Sat by Pulse Oximetry 97 97 Oxygen Delivery Method Room Air Room Air 03/29/24 16:00 03/29/24 16:30 03/29/24 17:00 Temperature Temperature Source Pulse Rate 71 70 64 Pulse Rate [Right Radial] Respiratory Rate 19 20 16 Blood Pressure 120/72 132/79 131/80 Blood Pressure [Right Arm] Blood Pressure Mean [Right Arm] Blood Pressure Source Blood Pressure Position 02 Sat by Pulse Oximetry 95 95 95 Oxygen Delivery Method Room Air Room Air Room Air 03/29/24 17:30 03/29/24 18:01 Temperature 98.0 F Temperature Source Oral Pulse Rate 68 76 Pulse Rate [Right Radial] Respiratory Rate 22 18 Blood Pressure 118/75 124/80 Blood Pressure [Right Arm] Blood Pressure Mean [Right Arm] Blood Pressure Source Automatic Cuff Blood Pressure Position Sitting 02 Sat by Pulse Oximetry 97 Oxygen Delivery Method Room Air Room Air Lab Data Labs: Lab Results 03/29/24 15:15: WBC 13.5 H, RBC 4.26 L, Hgb 14.3, Hct 42.6, MCV 100.1 H, MCH 33.6 H, MCHC 33.6, RDW 14.5, Plt Count 256, MPV 8.2, Neut % (Auto) 69.6, Lymph % (Auto) 23.5, Craig % (Auto) 4.7, Eos % (Auto) 1.4, Baso % (Auto) 0.7, Neut # (Auto) 9.4 H, Lymph # (Auto) 3.2, Craig # (Auto) 0.6, Eos # (Auto) 0.2, Baso # (Auto) 0.1, PT 10.6, INR 0.94, APTT 29.1, D-Dimer 0.38, Sodium 138, Potassium 4.7, Chloride 108 H, Carbon Dioxide 27, Anion Gap 7.7, BUN 13, Creatinine 0.80, Estimated Creat Clear 93, Estimated GFR 97, Est GFR ( Amer) 118, Glucose 129 H, Calcium 9.1, Magnesium 1.7, Total Bilirubin 0.3, AST 19, ALT 18, Alkaline Phosphatase 91, Troponin I < 0.01, NT-Pro-B Natriuret Pep 526 H, Total Protein 6.5, Albumin 3.9, Globulin 2.6, Albumin/Globulin Ratio 1.5, Lipase 191, TSH 1.75, Thyroxine (T4) 7.8 03/29/24 15:52: VBG pH 7.36, VBG pCO2 39.9, VBG pO2 51.7 H, VBG HCO3 21.9 L, VBG Total CO2 23.2, VBG O2 Saturation 85.2 H, VBG Base Excess -3.5 L, VBG Lactic Acid 1.4 03/29/24 15:15 03/29/24 15:15 Response Orders (Tests/Meds): ED MEDICATIONS Discontinued Medications Generic Name Dose Route Start Last Admin Trade Name Allanq PRN Reason Stop Dose Admin Acetaminophen 1,000 mg 03/29/24 17:06 03/29/24 17:13 Acetaminophen 500mg Tab PO 03/29/24 17:07 1,000 mg ONCE ONE Administration Albuterol/Ipratropium 3 ml 03/29/24 17:34 03/29/24 17:44 Ipratropium/Albuterol 3 Ml Neb IH 03/29/24 17:35 3 ml ONCE ONE Administration Amoxicillin/Clavulanate Potassium 1 each 03/29/24 17:34 03/29/24 17:44 Amoxicillin/Clavulanate Potassium 875/125mg Tablet PO 03/29/24 17:35 1 each ONCE ONE Administration Belladonna Alkaloids 60 ml 03/29/24 17:06 03/29/24 17:12 Belladonna Alkaloids 60 Ml Ml PO 03/29/24 17:07 60 ml ONCE ONE Administration Famotidine 40 mg 03/29/24 17:06 03/29/24 17:12 Famotidine 20mg Tablet PO 03/29/24 17:07 40 mg ONCE ONE Administration Prednisone 40 mg 03/29/24 17:34 03/29/24 17:44 Prednisone 20mg Tab PO 03/29/24 17:35 40 mg ONCE ONE Administration ORDERS Category Date Time Status CXR 2 view (NOT portable) [XR chest 2V] Stat Exams 03/29/24 15:16 Completed BNP [NT Pro Brain Natriuretic Pep.] Stat Lab 03/29/24 15:15 Completed CBC w/Auto Diff [Complete Blood Count Auto Diff] Stat Lab 03/29/24 15:15 Completed CMP [Comprehensive Metabolic Panel] Stat Lab 03/29/24 15:15 Completed D-Dimer Stat Lab 03/29/24 15:15 Completed Lipase Stat Lab 03/29/24 15:15 Completed MAG [Magnesium] Stat Lab 03/29/24 15:15 Completed PTT [Activated Partial Thrombo Time] Stat Lab 03/29/24 15:15 Completed Prothrombin Time INR Stat Lab 03/29/24 15:15 Completed T4 (Thyroxine) Stat Lab 03/29/24 15:15 Completed TSH [Thyroid Stimulating Hormone] Stat Lab 03/29/24 15:15 Completed Trop I [Troponin I] Stat Lab 03/29/24 15:15 Completed VBG [Venous Blood Gas] Stat RT 03/29/24 15:52 Completed ECG Data Tracing #1: Attestation: I reviewed this ECG and interpreted as documented below: ECG Narrative: Atrial fibrillation with a ventricular rate of [address] changes concerning for STEMI. ECG initial impression date: 03/29/24 ECG initial impression time: 15:15 MDM Narrative Medical Decision Narrative: In summary, this patient is a 64-year-old male presenting to the Emergency Department for evaluation of chest pain for 3 to 4 days. Differential diagnoses considered include but are not limited to ACS, dysrhythmia, stable angina, unstable angina, dysrhythmia, CHF exacerbation, COPD exacerbation. Ruling out the most morbid conditions drove assessment. It should be noted patient's history includes CAD, CHF, COPD which may or may not be at goal therapy. This complicates all aspects of care by increasing patient's risk for morbidity. I reviewed patient's past medical records and noted previous cardiology evaluations. On exam, the patient is resting comfortably in bed in no acute distress with reassuring cardiopulmonary and abdominal exams. He is in atrial fibrillation, which is chronic, but his rate is in the 70s to 80s on my assessments. Vitals are otherwise normal with no hypoxia. He does have bilateral wheezing. It may be COPD exacerbation. Workup included CBC, CMP, troponin, BNP, D-dimer, TSH, T4, magnesium, chest x-ray, EKG. I independently interpreted x-ray prior to the radiologist read and noted no acute focal consolidation. Please see their read for final interpretation. Labs were obtained that demonstrated mild leukocytosis with no other acutely concerning abnormalities. Troponin negative. BNP is very mildly elevated at 526 without other previous comparison. Patient had improvement after DuoNeb and so was given oral prednisone, Augmentin, and prescription for azithromycin. I feel he is appropriate for discharge home for treatment of COPD exacerbation, as he is resting comfortably with normal oxygen saturation patient on room air. Vitals reassuring on cardiac telemetry. 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 He was discharged after all questions were answered.
[2024-03-29 15:26] LABS: Basophils # 0.1 K/mm3 (0-0.2); Basophils % 0.7 % (0.1-2.0); Eosinophils # 0.2 K/mm3 (0.0-0.4); Eosinophils % 1.4 % (0.1-12.0); Hematocrit 42.6 % (42.0-52.0); Hemoglobin 14.3 g/dL (14.1-18.0); Lymphocytes # 3.2 K/mm3 (0.7-4.5); Lymphocytes % 23.5 % (10-50); Mean Corpuscular HGB Conc 33.6 g/dL (31.8-35.4); Mean Corpuscular Hemoglobin 33.6 pg (27.0-31.2); Mean Corpuscular Volume 100.1 fl (80-94); Mean Platelet Volume 8.2 fl (7.4-10.4); Monocytes # 0.6 K/mm3 (0.1-1.0); Monocytes % 4.7 % (1.7-9.3); Neutrophils # 9.4 K/mm3 (1.8-7.8); Neutrophils % 69.6 % (37.0-80.0); Platelet Count 256 K/mm3 (142-424); Red Blood Count 4.26 M/mm3 (4.60-6.20); Red Cell Distribution Width 14.5 % (11.5-17.5); White Blood Count 13.5 K/mm3 (4.8-10.8)
[2024-03-29 15:28] LABS: Albumin Level 3.9 g/dl (3.5-5.0); Chloride 108 mmol/L (98-107); Potassium 4.7 mmoL/L (3.5-5.1); Sodium 138 mmol/L (136-145)
--- NOTE | 2024-03-29 15:29 | PC.NURSE ---
PT returned to room from RAD
[2024-03-29 15:31] LABS: Alanine Aminotransferase 18 U/L (12-78); Albumin/Globulin Ratio 1.5 (1.1-1.8); Alkaline Phosphatase 91 U/L (38-126); Anion Gap 7.7 mEq/L (5-15); Aspartate Amino Transferase 19 U/L (17-59); Bilirubin,Total 0.3 mg/dl (0.2-1.3); Blood Urea Nitrogen 13 mg/dl (9-20); Carbon Dioxide 27 mmol/L (22.0-30.0); Creatinine Clearance Estimated 93 mL/min (50-200); Estimated Glomerular Filt Rate 97 ml/min (>60); GFR (African American) 118 ML/MIN (>60); Globulin 2.6 g/dL (1.3-3.2); Lipase 191 U/L (23-300); Total Protein,Serum 6.5 g/dl (6.3-8.2)
[2024-03-29 15:32] LABS: Calcium 9.1 mg/dl (8.4-10.2); Glucose 129 mg/dl (74-100)
[2024-03-29 15:34] LABS: Activated Partial Thrombo Time 29.1 seconds (22.8-30.6); INR 0.94 (0.9-1.1); Prothrombin Time 10.6 seconds (10.1-12.5)
[2024-03-29 15:40] LABS: Magnesium 1.7 mg/dl (1.6-2.3)
[2024-03-29 15:41] LABS: NT Pro Brain Natriuretic Pep. 526 pg/mL (0-125)
[2024-03-29 15:49] LABS: T4 (Thyroxine) 7.8 ug/dl (5.53-11.0)
[2024-03-29 15:54] LABS: Lactate Venous 1.4 mmol/L (0.4-2.0); VBG Base Excess -3.5 mmol/L (-2.4-2.3); VBG HCO3 21.9 mmol/L (23-30); VBG Oxygen Saturation 85.2 % (50-70); VBG PCO2 39.9 mmol/L (35-51); VBG PH 7.36 mmol/L (7.31-7.41); VBG PO2 51.7 mmol/L (28-40); VBG Total CO2 23.2 mmol/L (23-27)
[2024-03-29 16:02] LABS: Thyroid Stimulating Hormone 1.75 uIU/mL (0.465-4.68)
[2024-03-29 16:05] LABS: D-Dimer 0.38 ug/mL (0.0-0.5)
[2024-03-29 16:10] LABS: Troponin I < 0.01 ng/ml (0.00-0.034)
[2024-03-29] MEDS: FAMOTIDINE 20MG TABLET 40 MG PO (17:12)
[2024-03-29] MEDS: BELLADONNA ALKALOIDS 60 ML ML PO (17:12)
[2024-03-29] MEDS: ACETAMINOPHEN 500MG TAB 1000 MG PO (17:13)
[2024-03-29] MEDS: IPRATROPIUM/ALBUTEROL 3 ML NEB IH (17:44)
[2024-03-29] MEDS: predniSONE 20MG TAB 40 MG PO (17:44)
[2024-03-29] MEDS: AMOXICILLIN/CLAVULANATE POTASSIUM 875/125MG TABLET 1 EACH PO (17:44)
== END 2024-03-29 18:04 | disposition home or self-care (01) ==
PROVIDERS: Emergency Provider Emergency Medicine; PCP Family Medicine
DX: J44.1 Chronic obstructive pulmonary disease with (acute) exacerbation (principal); R07.9 Chest pain, unspecified; F17.210 Nicotine dependence, cigarettes, uncomplicated; I11.9 Hypertensive heart disease without heart failure; I25.10 Atherosclerotic heart disease of native coronary artery without angina pectoris; I48.20 Chronic atrial fibrillation, unspecified; E78.5 Hyperlipidemia, unspecified; Z95.5 Presence of coronary angioplasty implant and graft
CPT/HCPCS: 71046; 80050; 80053; 82803; 83690; 83735; 83880; 84436; 84443; 84484; 85025; 85378; 85610; 85730; 93005; 99284; J7620

== ENCOUNTER 2024-05-14 15:02 | Outpatient (CLI) | payer MEDICAID, SELFPAY ==
--- NOTE | 2024-05-14 15:02 | CT_ITS ---
FINAL REPORT TECHNIQUE: Thin section axial images were obtained from the lung apices to the upper abdomen by computed tomography. Reformatted images were obtained and reviewed. This study was performed with techniques to keep radiation doses al low as reasonably achievable (ALARA). Individualized dose reduction techniques using automated exposure control or adjustment of mA and/or kV according to the patient's size were employed. CLINICAL HISTORY: lung cancer screening smoker 1.5 ppd x 40 yrs DLP 102.12 COMPARISON: 05/09/2023 FINDINGS: CHEST CT LOW DOSE 64-year-old male, current smoker, 75-hzim-dnpm history. CTDI vol (mGy): 2.9 DLP (mGy-cm): 102.12 There is no axillary adenopathy. There is no mediastinal or hilar mass or adenopathy. Densely calcified subcarinal nodes are present. Calcified granulomas are noted in the right lung. The heart is normal in size. There is no pericardial or pleural effusion. There is moderate centrilobular emphysema. Lung window images demonstrate a 3 mm nodule in the left lower lobe, best seen on image #52 of series 4, new since the prior CT of 2022.. Limited images of the upper abdomen are unremarkable. IMPRESSION: Lung-RADS category 2. Recommend 12 month follow up low dose chest CT. Reviewed, Interpreted and Dictated by Jose Enrique Curtis MD Transcribed by Melvi Escoto Authenticated and . [facility]
== END 2024-05-14 23:59 | disposition home or self-care (01) ==
PROVIDERS: PCP Family Medicine; Visit Provider Family Medicine
DX: F17.219 Nicotine dependence, cigarettes, with unspecified nicotine-induced disorders (principal)
CPT/HCPCS: 71271

== ENCOUNTER 2024-09-13 09:14 | Outpatient (CLI) | payer MEDICAID, SELFPAY ==
[2024-09-13 18:02] LABS: Basophils # 0.1 K/mm3 (0-0.2); Basophils % 0.9 % (0.1-2.0); Eosinophils # 0.2 K/mm3 (0.0-0.4); Eosinophils % 1.6 % (0.1-12.0); Hematocrit 43.2 % (42.0-52.0); Hemoglobin 14.5 g/dL (14.1-18.0); Lymphocytes % 30.2 % (10-50); Mean Corpuscular HGB Conc 33.6 g/dL (31.8-35.4); Mean Corpuscular Hemoglobin 31.8 pg (27.0-31.2); Mean Corpuscular Volume 94.7 fl (80-94); Mean Platelet Volume 10.2 fl (7.4-10.4); Monocytes # 0.8 K/mm3 (0.1-1.0); Neutrophils # 5.8 K/mm3 (1.8-7.8); Platelet Count 257 K/mm3 (142-424); Red Blood Count 4.56 M/mm3 (4.60-6.20); White Blood Count 9.8 K/mm3 (4.8-10.8)
[2024-09-13 18:52] LABS: Alanine Aminotransferase 20 U/L (12-78); Albumin Level 4.2 g/dl (3.5-5.0); Albumin/Globulin Ratio 1.8 (1.1-1.8); Alkaline Phosphatase 82 U/L (38-126); Anion Gap 12.7 mEq/L (5-15); Aspartate Amino Transferase 21 U/L (17-59); Bilirubin,Total 0.2 mg/dl (0.2-1.3); Blood Urea Nitrogen 12 mg/dl (9-20); Calcium 9.6 mg/dl (8.4-10.2); Carbon Dioxide 25 mmol/L (22.0-30.0); Chloride 102 mmol/L (98-107); Cholesterol 128 mg/dl (140-200); Estimated Glomerular Filt Rate 97 ml/min (>60); GFR (African American) 118 ML/MIN (>60); Globulin 2.3 g/dL (1.3-3.2); Glucose 70 mg/dl (74-100); HDL Cholesterol 32 mg/dl (40-60); Potassium 4.7 mmoL/L (3.5-5.1); Sodium 135 mmol/L (136-145); Total Protein,Serum 6.5 g/dl (6.3-8.2); Triglycerides 141 mg/dl (30-150); VLDL Cholesterol 28 mg/dL (0-40)
[2024-09-13 19:03] LABS: Direct LDL Cholesterol 74.68 mg/dL (100-129)
== END 2024-09-13 23:59 | disposition home or self-care (01) ==
LOC: LAB.DROPOF 09-16 09:14
PROVIDERS: PCP Family Medicine; Visit Provider Family Medicine
DX: J44.9 Chronic obstructive pulmonary disease, unspecified (principal); I10 Essential (primary) hypertension; Z72.0 Tobacco use
CPT/HCPCS: 80053; 80061; 85025

== ENCOUNTER 2024-09-30 09:42 | Outpatient (CLI) | payer MEDICAID, SELFPAY ==
[2024-09-30 10:50] VITALS: PULSE 85; PULSE 88
[2024-09-30] MEDS: ALBUTEROL 0.083% 2.5 MG/3 ML NEB IH (10:50)
--- NOTE | 2024-09-30 11:24 | XR_ITS ---
FINAL REPORT TECHNIQUE: 3 views lumbar spine CLINICAL HISTORY: low back pain DENIES INJURY COMPARISON: None FINDINGS: LUMBAR SPINE: 3 views of the lumbar spine were obtained. There is no prior exam for comparison. There is no acute fracture or malalignment. Vertebral body height is preserved. There is mild loss of disc space height at the L5-S1 level. Moderate facet sclerosis is noted in the lower lumbar spine. No acute paraspinal abnormality. IMPRESSION: Disc space narrowing at the L5-S1 level, with moderate facet sclerosis in the lower lumbar spine. Reviewed, Interpreted and Dictated by Jose Enrique Curtis MD Transcribed by Melvi Escoto Authenticated and [facility]
--- NOTE | 2024-09-30 11:24 | XR_ITS ---
FINAL REPORT TECHNIQUE: Chest PA & Lateral CLINICAL HISTORY: copd CP/COUGH 2-3 DAYS COMPARISON: None FINDINGS: 2 views of the chest were performed. The heart size is normal. The mediastinum is within normal limits. There is no acute cardiopulmonary process. There are no pleural effusions. There is no pneumothorax. The bony thorax appears intact. There is a large calcified subcarinal node present. IMPRESSION: No acute cardiopulmonary process. Reviewed, Interpreted and Dictated by Jose Enrique Curtis MD Transcribed by Melvi Escoto Authenticated and [facility]
== END 2024-09-30 23:59 | disposition home or self-care (01) ==
LOC: RT 09:43
PROVIDERS: PCP Family Medicine; Visit Provider Family Medicine
DX: M54.50 Low back pain, unspecified (principal); J44.9 Chronic obstructive pulmonary disease, unspecified
CPT/HCPCS: 71046; 72100; 94060; 94640; 94727; 94729; J7613

== ENCOUNTER 2024-12-17 09:57 | Outpatient (CLI) | payer MEDICAID, SELFPAY ==
[2024-12-17] MEDS: ALBUTEROL 0.083% 2.5 MG/3 ML NEB IH (10:23)
--- NOTE | 2024-12-17 10:23 | PC.NURSE ---
Pre and Post Spirometry completed without incident. Albuterol 0.083% given via HHN, per written protocol, Pt tolerated tx well.
== END 2024-12-17 23:59 | disposition home or self-care (01) ==
LOC: RT 09:57
PROVIDERS: PCP Family Medicine; Visit Provider Family Medicine
DX: J44.9 Chronic obstructive pulmonary disease, unspecified (principal)
CPT/HCPCS: 94010; J7613

== ENCOUNTER 2024-12-19 10:48 | Outpatient (CLI) | payer MEDICAID, SELFPAY ==
--- NOTE | 2024-12-19 | CA_ITS ---
APPROVED REPORT Exam: Pharmacologic Technologist: Senait John Ht: 5 ft 6 in Wt: 206 lbs BSA: 2.02 m2 HR: 60 bpm BP: 152/81 mmHg Rhythm: Nsr Medical History Medical History: HTN, Hyperlipidemia, Smoking Medications: Albuterol, Amlodipine, Aspirin, Plavix, Duloxetine, Advair, Gabapentin, HCTZ, Lisinopril, Metoprolol, Nitroglycerin, Rosuvastatin Allergies: No known drug allergies Cardiac Risk Factors: HTN, Hyperlipidemia, Smoking Stress Test Details Test: Lexiscan HR Resting HR: 60 bpm Max Heart Rate (APMHR): 156.614148 bpm Target HR (85% APMHR): 132.875984 bpm Recovery HR: 76 bpm BP Resting BP: 152.0/81.0 mmHg Max BP: 165.0/87.0 mmHg Recovery BP: 155.0/87.0 mmHg ECG Resting ECG: Nsr Stress ECG Conclusion Pt had no symptoms <1.5mm ST segment changes Non-diagnostic Lexiscan stress Electronically signed by : Acacia Loza MD 12/24/2024 21:24:49
--- NOTE | 2024-12-19 11:30 | NM_ITS ---
APPROVED REPORT Exam: Nuclear Stress Test Indication: Chest pain, SOB, Fatigue, HTN, High cholesterol, Tobacco use, CAD, Hx of ME Patient Location: Outpatient Stress Tech: Senait John MI Tech:Jeanette Ramos GREGGDinah RT(R)(N) Ht: 5 ft 10 in Wt: 200 lbs HR: 63 bpm BP: 152/81 mmHg BSA: 2.09 m2 TID: 1.08 BMI: 28.6 History: Chest pain, SOB, Fatigue, HTN, High cholesterol, Tobacco use, CAD, Hx of ME Procedure: Patient received 0.4 mg of intravenous Lexiscan, resting heart rate 63 bpm, resting blood pressure 152/81 mmHg, with Lexiscan maximum heart rate achieved was 81 bpm which is % of the maximum predicted heart rate and blood pressure was 165/87 mmHg. With Lexiscan, patient denied any complaint of chest pain. Cardiac Stress and Resting SPECT Images: Cardiac Stress and Resting SPECT images were obtained using technetium 99m Myoview 30.1 mCi stress and 10.97 mCi at rest. Resting and stress imaging in supine and prone positions demonstrate a small sized, moderate, fixed perfusion defect in the basal septal LV wall. Gated imaging demonstrates normal global and regional LV systolic function. LVEF is calculated at 56%. Conclusion: Small sized, moderate, fixed perfusion defect in the basal septal LV wall. No evidence of reversible ischemia. Gated imaging demonstrates normal global and regional LV systolic function. LVEF is calculated at 56%. Electronically signed by : Acacia Loza MD 12/24/2024 21:13:40
[2024-12-19] MEDS: ISOTOPE MYOVIEW (PER STUDY) 1 DOSE IV (13:37)
[2024-12-19] MEDS: REGADENOSON 0.4MG/5ML SYRINGE 0.4 MG IV (13:37)
[2024-12-19] MEDS: SODIUM CHLORIDE 0.9% 10ML SYR (RAD ONLY) 10 ML IV ×2 (13:37)
== END 2024-12-19 23:59 | disposition home or self-care (01) ==
LOC: RAD 10:48
PROVIDERS: PCP Family Medicine; Visit Provider Nurse Practitioner Family
DX: R06.02 Shortness of breath (principal); R07.9 Chest pain, unspecified
CPT/HCPCS: 78452; 93017; 93018; A9502; J2785

== ENCOUNTER 2025-01-23 21:32 | Observation (INO) | payer MEDICARE, MEDICAID, SELFPAY ==
--- NOTE | 2025-01-23 21:34 | ECG_ITS ---
APPROVED REPORT Exam: Resting ECG HR:148 bpm ECG Measurements Heart Rate 148 AXES QRSd 87 QRS 14 QT 216 T 88 QTc 301 Conclusion ATRIAL FLUTTER/TACHYCARDIA WITH RAPID VENTRICULAR RESPONSE MARKED ST DEPRESSION, CONSIDER SUBENDOCARDIAL INJURY [0.2+ mV ST DEPRESSION] Electronically signed by : EDEN BECKHAM, 01/25/2025 12:37:33
--- NOTE | 2025-01-23 21:41 | XR_ITS ---
PROCEDURE INFORMATION: Exam: XR Chest Exam date and time: 01/23/2025 9:45 PM Age: 65 years old Clinical indication: Other: Chest pain TECHNIQUE: Imaging protocol: Radiologic exam of the chest. Views: 2 views. COMPARISON: CR XR CHEST 2V 09/30/2024 11:27 AM FINDINGS: Lungs: The lungs are hyperinflated. Chronic interstitial opacities. No focal consolidation. Pleural spaces: Unremarkable. No pleural effusion. No pneumothorax. Heart/Mediastinum: Unremarkable. No cardiomegaly. Diaphragm: Flattening of the hemidiaphragms. Bones/joints: Unremarkable. IMPRESSION: 1. No acute disease. 2. Pulmonary hyperinflation and chronic appearing interstitial opacities, suspicious for COPD.
--- NOTE | 2025-01-23 21:41 | ED_ITS ---
Discharge Plan Disposition Patient Disposition: Home, Self-Care Clinical Impressions Clinical Impression: Atrial flutter, Atrial fibrillation with rapid ventricular response, Chest pain Discharge ED Provider: Rizwan Isaac General Adult HPI General Chief complaint: Arrhythmia/Palpitations Stated complaint: chest pain Time Seen by Provider: 01/23/25 21:41 Mode of Arrival: Ambulatory Source of Information: Patient Limitations: No Limitations History of Present Illness HPI narrative: This is a 65-year-old male with a past medical history of CAD status post RCA stenting in 06/19 on Plavix and Xarelto, paroxysmal A-fib who presents with chest pain. States that he has been having intermittent chest pain all day especially when he coughs. Also reports palpitations and lightheadedness. Denies any shortness of breath. Related Data Previous Rx's ?Medication ?Instructions ?Recorded lidocaine 5 % topical patch 1 patch topical DAILY #30 ea 12/14/22 mupirocin 2 % topical ointment 1 applic topical BID #2 2 grams 03/08/23 nitroglycerin 0.4 mg sublingual 0.4 mg sublingual Q5M PRN chest 06/15/23 tablet pain #25 tabs aspirin 81 mg chewable tablet 81 mg PO DAILY 30 days # 30 tabs 06/27/23 (Kan Chewable Low Dose Aspirin) hydroxyzine HCl 25 mg tablet 25 mg PO BID PRN Anxiety or sleep 09/01/23 Held on 01/30/24. #30 tabs Instructions: Home Medication placed on hold at Doctor's office trazodone 50 mg tablet 50 mg PO HS #30 tabs 4 metoprolol succinate 25 mg 25 mg PO BID #180 tabs 01/18 tablet,extended release 24 hr (Toprol XL) clopidogrel 75 mg tablet (Plavix) 75 mg PO DAILY 30 da ys #30 tabs 01/30/24 diclofenac sodium 1 % topical gel 2 g topical QID #100 grams 01/30/24 rivaroxaban 20 mg tablet (Xarelto) 20 mg PO DAILY #30 tabs 10/15/24 albuterol sulfate 0.63 mg/3 mL 0.63 mg (3 mL) inhalati on Q4-6H 10/18/24 solution for nebulization PRN shortness of breath or wheezing #90 mL albuterol sulfate 90 mcg/actuation 2 puff inhalation Q 4-6H PRN 10/18/24 aerosol inhaler shortness of breath or wheez ing #18 grams fluticasone 250 mcg-salmeterol 50 1 inh inhalation BID #60 ea 10/18/24 mcg/dose blistr powdr for inhalation (Advair Diskus) hydrochlorothiazide 25 mg tablet 25 mg PO DAILY #30 ta bs 10/18/24 amlodipine 2.5 mg tablet See Rx Instructions .Route 0 11/05/24 .COMPLEX #90 tabs duloxetine 30 mg capsule,delayed 30 mg PO BID #60 caps 11/05/24 release gabapentin 100 mg capsule See Rx Instructions .Route 0 11/05/24 .COMPLEX #150 caps rosuvastatin 40 mg tablet See Rx Instructions .Route 0 11/05/24 .COMPLEX Cholesterol #90 ea lisinopril 40 mg tablet 40 mg PO DAILY #90 tabs 04/21 ranolazine 500 mg tablet,extended 500 mg PO BID #180 t abs 01/02/25 release,12 hr Allergies Allergy/AdvReac Type Severity Reaction Status Date / Time No Known Allergies Allergy Verified 01/02/25 10:44 [facility] Disclaimer: The information contained in this section may have been updated after the patient was seen, as this information can be updated by other users. Medical History Hyperlipidemia Angina pectoris SOB (shortness of breath) Nocturnal hypoxemia Emphysema lung COPD (chronic obstructive pulmonary disease) Tobacco use disorder, continuous Hypertension Osteoarthritis of knees, bilateral Chronic pain Pulmonary nodule less than 1 cm in diameter with low risk for malignant neoplasm due for CT follow-up in 04/2025 Skin lesion of face Screening for lung cancer Macrocytosis Anxiety Screening PSA (prostate specific antigen) Frozen shoulder Coronary artery disease History of skin cancer Paroxysmal A-fib Surgical History History of cholecystectomy (~2018) History of coronary artery stent placement VINNIE RCA (MAY 2023) Family History Other No significant family history Social History Smoking Status: Current every day smoker tobacco type: cigarettes packs per day: 2 smoking status start date: 1977 years smoked: 46 second hand exposure: Yes alcohol intake: never substance use type: denies use current occupational status: employed Travel in the last 8 weeks?: None household members: spouse and children housing: house current occupational exposures/hazards: No caffeine: Yes Have you lived/traveled outside US in past 30 days?: No Contact w/someone who lives/traveled outside US past 30 days?: No Exposure to someone with infectious disease in past 14 days?: No Do you have a fever (greater than 100.4 F or 38 C)?: No Have you tested positive for COVID-19?: No Exposed to someone with COVID-19 in past 14 days?: No Do you have a sore throat?: No Do you have a cough?: No Do you have any weakness?: No Do you have any diarrhea?: No Are you experiencing any unusual bleeding?: No Do you have any muscle aches/pain?: No Do you have any abdominal pain?: No Are you experiencing loss of taste or smell?: No Other Medical History Have you received the Flu Vaccine for this season: No Have you received the Pneumonia Vaccine: No ROS Obtained: Yes All systems reviewed & no additional complaints except as documented Physical Exam General General appearance: alert and in no apparent distress Head Head exam: atraumatic Eye Eye exam: Present normal appearance, PERRL and EOMI Neck Neck exam: Present normal inspection and full ROM Chest Chest inspection: Present symmetric chest wall rise Respiratory Respiratory exam: Present normal lung sounds bilaterally; Absent respiratory distress Cardiovascular Cardiovascular exam: Present tachycardia and irregular rhythm Abdominal Exam Abdominal exam: Present soft; Absent distention Extremities Exam Extremities exam: Present normal inspection Neurological Exam Neurological exam: Present alert and oriented X3 Psychiatric Psychiatric exam: Present normal affect and normal mood Skin Skin exam: Present warm and dry Medical Decision Making Medical Records Medical records reviewed: Yes I reviewed the patient's medical records. Screening: Per USPSTF and CDC recommendations, given the prevalence of disease in our region, it is our hospital?s policy to screen for HIV and viral Hepatitis for all patients aged 18 and over and those with ongoing risk factors. MR Comment: Reviewed cardiology clinic visit note from 01/02/2025 notable for patient's past medical history as noted above. Reportedly had a normal echo on 04/16/2023. Myocardial nuclear study revealed LVEF of 56% with a small sized fixed perfusion defect in the basal septal LV wall with no evidence of reversible ischemia. Rashaad Inquiry Pt receiving controlled substance: No Vital Signs: 01/23/25 21:51 01/23/25 22:00 01/23/25 22:30 Temperature 98.7 F Temperature Source Oral Pulse Rate 63 75 Pulse Rate [Right] 152 H Respiratory Rate 21 26 H 21 Blood Pressure 137/87 124/70 Blood Pressure [Right Arm] 170/91 H Blood Pressure Mean [Right Arm] 117 Blood Pressure Source [Right Arm] Automatic Cuff Blood Pressure Position [Right Arm] Supine 02 Sat by Pulse Oximetry 96 94 L 95 Oxygen Delivery Method Nasal Cannula Room Air Room Air Oxygen Flow Rate (LPM) 2 Lab Data Lab Results 01/23/25 21:36: WBC 13.4 H, RBC 4.85, Hgb 15.0, Hct 45.7, MCV 94.2 H, MCH 30.9, MCHC 32.8, RDW 13.8, Plt Count 227, MPV 10.0, Neut % (Auto) 65.1, Lymph % (Auto) 23.4, [facility] % (Auto) 9.7 H, Eos % (Auto) 1.0, Baso % (Auto) 0.5, Neut # (Auto) 8.7 H, Lymph # (Auto) 3.1, [facility] # (Auto) 1.3 H, Eos # (Auto) 0.1, Baso # (Auto) 0.1, Sodium 136, Potassium 4.2, Chloride 103, Carbon Dioxide 28, Anion Gap 9.2, BUN 12, Creatinine 1.00, Estimated Creat Clear 94, Estimated GFR 75, Est GFR ( Amer) 91, Glucose 117 H, Calcium 9.7, Magnesium 1.8, Total Bilirubin 0.3, AST 20, ALT 18, Alkaline Phosphatase 89, Troponin I < 0.01, NT-Pro-B Natriuret Pep 44.1, Total Protein 7.5, Albumin 4.5, Globulin 3.0, Albumin/Globulin Ratio 1.5 01/23/25 21:36 01/23/25 21:36 Orders (Tests/Meds): ED MEDICATIONS Generic Name Dose Route Start Last Admin Trade Name Freq PRN Reason Stop Dose Admin Acetaminophen 650 mg 01/23/25 22:45 Acetaminophen 325mg Tab PO 02/22/25 22:44 Q4HP PRN Fever or Mild Pain (1-3) Hydrocodone Bitart/Acetaminophen 1 tab 01/23/25 22:45 Hydrocodone/Apap 5/325 Mg Tablet PO 02/22/25 22:44 Q4HP PRN Mild to Moderate Pain (1-6) Albuterol Sulfate 2 puff 01/23/25 22:47 Albuterol-Hfa 90mcg/Puff Inhaler 8gm IH 02/22/25 22:46 Q4-6H PRN Shortness Of Breath Or Wheezing Clopidogrel Bisulfate 75 mg 01/24/25 09:00 Clopidogrel 75mg Tab PO 02/23/25 08:59 DAILY MICAH Gabapentin 0 mg 01/23/25 23:00 Gabapentin 100mg Capsule PO 02/22/25 22:59 .COMPLEX MICAH Hydrochlorothiazide 25 mg 01/24/25 09:00 Hydrochlorothiazide 25mg Tablet PO 02/23/25 08:59 DAILY MICAH Metoprolol Succinate 25 mg 01/23/25 23:00 Metoprolol Succinate Xl 25mg Tablet PO 02/22/25 22:59 BID MICAH Miscellaneous 1 unit 01/23/25 22:47 Aerochamber/Optihaler MC 01/23/25 22:48 ONCE ONE Nicotine 21 mg 01/23/25 22:45 Nicotine 21mg/24hr Patch TD 02/22/25 22:44 DAILYP PRN Nicotine Cravings Nitroglycerin 0.4 mg 01/23/25 22:47 Nitroglycerin 0.4mg Sl Tablet SL 02/22/25 22:46 Q5M PRN Chest Pain Non-Formulary Medication 0.63 mg 01/23/25 22:47 Albuterol Sulfate IH Q4-6H PRN shortness of breath or wheezing Non-Formulary Medication 25 mg 01/23/25 22:47 Hydroxyzine Hcl PO BID PRN Anxiety or sleep Non-Formulary Medication 40 mg 01/24/25 09:00 Lisinopril PO 02/23/25 08:59 DAILY MICAH Non-Formulary Medication 20 mg 01/24/25 09:00 Rivaroxaban [Xarelto] PO 02/23/25 08:59 DAILY MICAH Non-Formulary Medication 0 mg 01/23/25 23:00 Rosuvastatin .ROUTE 02/22/25 22:59 .COMPLEX MICAH Ondansetron HCl 4 mg 01/23/25 22:45 Ondansetron 4mg/2ml Vial IV 02/22/25 22:44 Q8HP PRN Nausea Pantoprazole Sodium 40 mg 01/23/25 22:45 Pantoprazole 40mg Tablet PO 02/23/25 20:59 HS PRN Acid Reflux Promethazine HCl 25 mg 01/23/25 22:45 Promethazine Hcl 25mg/Ml 1ml Vial IV 02/22/25 22:44 Q6HP PRN Nausea And Vomiting Ranolazine 500 mg 01/24/25 09:00 Ranolazine 500mg Er Tablet PO 02/23/25 08:59 BID MICAH Sodium Chloride 25 ml 01/23/25 22:45 Sodium Chloride 0.9% 25ml Bag IV 02/22/25 22:44 NEEDED PRN for Use with IV Promethazine Trazodone HCl 50 mg 01/24/25 21:00 Trazodone 50mg Tablet PO 02/23/25 20:59 HS MICAH Discontinued Medications Generic Name Dose Route Start Last Admin Trade Name Freq PRN Reason Stop Dose Admin Diltiazem HCl 20 mg 01/23/25 21:51 01/23/25 22:01 Diltiazem 25mg/5ml Vial IV 01/23/25 21:52 20 mg ONCE ONE Administration Diltiazem HCl 120 mg 01/23/25 22:15 01/23/25 22:21 Diltiazem Er 120mg Capsule PO 01/23/25 22:16 120 mg ONCE ONE Administration ORDERS Category Date Time Status Chest XR 2 view (NOT portable) [XR chest 2V] Stat Exams 01/23/25 21:41 Completed POCUS Point of Care (ER Only) Stat Exams 01/23/25 21:41 Ordered BNP [NT Pro Brain Natriuretic Pep.] Stat Lab 01/23/25 21:36 Completed CBC w/Auto Diff [Complete Blood Count Auto Diff] Stat Lab 01/23/25 21:36 Completed CMP [Comprehensive Metabolic Panel] Stat Lab 01/23/25 21:36 Completed HIV Combo Stat Lab 01/23/25 21:36 Received Hepatitis C Ab Qual. W/ RFX Stat Lab 01/23/25 21:36 Received Magnesium Stat Lab 01/23/25 21:36 Completed Troponin I Q3H Lab 01/24/25 00:45 Ordered Troponin I Q3H Lab 01/24/25 03:45 Ordered Troponin I Stat Lab 01/23/25 21:36 Completed ECG Data Tracing #1: I reviewed this ECG and interpreted as documented below: Atrial flutter with 2-1 block at a rate of 148, QTc 301, diffuse ST segment depression with no ST elevation Medical Decision Narrative: In summary, this 65-year-old male w/ CAD status post RCA stenting in 06/19 on Plavix and Xarelto, paroxysmal A-fib (all complicating patient's medical care and increasing his risk of morbidity) presents to the emergency department today with chest pain. On initial evaluation patient is afebrile, hemodynamically stable, nontoxic-appearing, fluctuating between atrial flutter at a 2-1 block and atrial fibrillation with RVR. Differential diagnosis includes but is not limited to ACS, arrhythmia, electrolyte abnormality. Based on these concerns, I ordered EKG, CBC, CMP, troponin, chest x-ray. ECG personally interpreted as noted above. Patient received 20 mg of diltiazem for treatment. Labs personally reviewed demonstrate white blood cell count of 13.4, unremarkable CMP, undetectable troponin. XR personally interpreted demonstrates no acute cardiopulmonary pathology. After diltiazem bolus, the patient was rate controlled with a heart rate in the 80s. Was administered 120 mg of oral diltiazem at this time. Consulted hospital medicine who ultimately admitted the patient to the hospital Critical Care Critical Care Time Critical Care Time: Yes Attestation: On 01/23/25, the high probability of a clinically significant, sudden or life threatening deterioration of the following system(s) required my full and direct attention, intervention and personal management. The time I documented below is in addition to time spent performing reported procedures but includes the following listed in this critical care notation. Total Time Total Critical Care Time: 35
[2025-01-23 21:51] VITALS: BP 170/91; PULSE 152; RESP 21; TEMP 37.1; O2SAT 96; BMI 32.3
[2025-01-23 22:00] VITALS: BP 137/87; PULSE 63; RESP 26; O2SAT 94
[2025-01-23 22:01] LABS: Albumin Level 4.5 g/dl (3.5-5.0); Chloride 103 mmol/L (98-107)
[2025-01-23] MEDS: dilTIAZem 25MG/5ML VIAL 20 MG IV (22:01)
[2025-01-23 22:02] LABS: Potassium 4.2 mmoL/L (3.5-5.1); Sodium 136 mmol/L (136-145)
[2025-01-23 22:03] LABS: Basophils # 0.1 K/mm3 (0-0.2); Basophils % 0.5 % (0.1-2.0); Eosinophils # 0.1 Kmm3 (0.0-0.4); Hematocrit 45.7 % (42.0-52.0); Immature Granulocytes # 0.04 10^3uL; Immature Granulocytes % 0.3 %; Lymphocytes # 3.1 K/mm3 (0.7-4.5); Lymphocytes % 23.4 % (10-50); Mean Corpuscular HGB Conc 32.8 g/dL (31.8-35.4); Mean Corpuscular Hemoglobin 30.9 pg (27.0-31.2); Mean Corpuscular Volume 94.2 fl (80-94); Monocytes # 1.3 K/mm3 (0.1-1.0); Monocytes % 9.7 % (1.7-9.3); Neutrophils # 8.7 K/mm3 (1.8-7.8); Neutrophils % 65.1 % (37.0-80.0); Nucleated Red Blood Cells # 0 10^3/uL; Nucleated Red Blood Cells % 0 %; Platelet Count 227 K/mm3 (142-424); Red Blood Count 4.85 M/mm3 (4.60-6.20); Red Cell Distribution Width 13.8 % (11.5-17.5); Red Cell Distribution Width-SD 47.4 fL; White Blood Count 13.4 K/mm3 (4.8-10.8)
[2025-01-23 22:04] LABS: Alanine Aminotransferase 18 U/L (12-78); Alkaline Phosphatase 89 U/L (38-126); Anion Gap 9.2 mEq/L (5-15); Aspartate Amino Transferase 20 U/L (17-59); Bilirubin,Total 0.3 mg/dl (0.2-1.3); Blood Urea Nitrogen 12 mg/dl (9-20); Carbon Dioxide 28 mmol/L (22.0-30.0); Creatinine Clearance Estimated 94 mL/min (50-200); Estimated Glomerular Filt Rate 75 ml/min (>60); GFR (African American) 91 ML/MIN (>60)
[2025-01-23 22:05] LABS: Albumin/Globulin Ratio 1.5 (1.1-1.8); Calcium 9.7 mg/dl (8.4-10.2); Glucose 117 mg/dl (74-100); Total Protein,Serum 7.5 g/dl (6.3-8.2)
[2025-01-23 22:08] LABS: Magnesium 1.8 mg/dl (1.6-2.3)
[2025-01-23] MEDS: dilTIAZem ER 120MG CAPSULE 120 MG PO (22:21)
--- NOTE | 2025-01-23 22:22 | ECG_ITS ---
APPROVED REPORT Exam: Resting ECG HR:118 bpm ECG Measurements Heart Rate 118 AXES QRSd 117 QRS 4 QT 502 T -36 QTc 572 Conclusion ATRIAL Fibrillation WITH RAPID VENTRICULAR RESPONSE MODERATE INTRAVENTRICULAR CONDUCTION DELAY [110+ ms QRS DURATION] ST DEVIATION AND MODERATE T-WAVE ABNORMALITY, CONSIDER ANTEROLATERAL ISCHEMIA [-0.1+ mV T-WAVE IN V3-V6] ST DEVIATION AND MODERATE T-WAVE ABNORMALITY, CONSIDER INFERIOR ISCHEMIA [-0.1+ mV T-WAVE IN II/aVF] No STEMI Electronically signed by : JENNIFER HADDAD, 01/25/2025 04:51:06
[2025-01-23 22:25] LABS: Troponin I < 0.01 ng/ml (0.00-0.034)
--- NOTE | 2025-01-23 22:26 | EXP.HP ---
History of Present Illness *Admission Date: 01/23/25 *Reason for visit:: Abdominal pain *History of present illness: 65-year-old male who presents to the emergency department secondary to abdominal pain and also which is generalized discomfort. His symptoms started approximately 2 days ago and have been continuous. Also feels mildly short of breath. Otherwise cannot feel the palpitations. On arrival to the emergency department initial triage demonstrated a flutter 2-1, heart rate 150. EKG again demonstrated a flutter to [address] depressions. POCUS performed by myself demonstrated normal LVEF, dilated IVC RA pressure 15 mmHg. Patient was given 20 mg IV diltiazem with improvement to heart rate 110. Subsequently started on p.o. diltiazem. 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 Hypertension. Hyperlipidemia. Paroxysmal A-fib on Xarelto PFSH [facility] Disclaimer: The information contained in this section may have been updated after the patient was seen, as this information can be updated by other users. Medical History Hyperlipidemia Angina pectoris SOB (shortness of breath) Nocturnal hypoxemia Emphysema lung COPD (chronic obstructive pulmonary disease) Tobacco use disorder, continuous Hypertension Osteoarthritis of knees, bilateral Chronic pain Pulmonary nodule less than 1 cm in diameter with low risk for malignant neoplasm due for CT follow-up in 04/2025 Skin lesion of face Screening for lung cancer Macrocytosis Anxiety Screening PSA (prostate specific antigen) Frozen shoulder Coronary artery disease History of skin cancer Paroxysmal A-fib Surgical History History of cholecystectomy (~2018) History of coronary artery stent placement VINNIE RCA (MAY 2023) Family History Other No significant family history Social History Smoking Status: Current every day smoker tobacco type: cigarettes packs per day: 2 smoking status start date: 1977 years smoked: 46 second hand exposure: Yes alcohol intake: never substance use type: denies use current occupational status: employed Travel in the last 8 weeks?: None household members: spouse and children housing: house current occupational exposures/hazards: No caffeine: Yes Have you lived/traveled outside US in past 30 days?: No Contact w/someone who lives/traveled outside US past 30 days?: No Exposure to someone with infectious disease in past 14 days?: No Do you have a fever (greater than 100.4 F or 38 C)?: No Have you tested positive for COVID-19?: No Exposed to someone with COVID-19 in past 14 days?: No Do you have a sore throat?: No Do you have a cough?: No Do you have any weakness?: No Do you have any diarrhea?: No Are you experiencing any unusual bleeding?: No Do you have any muscle aches/pain?: No Do you have any abdominal pain?: No Are you experiencing loss of taste or smell?: No Other Medical History Have you received the Flu Vaccine for this season: No Have you received the Pneumonia Vaccine: No Review of Systems Review of Systems Review of systems:: pertinent systems reviewed and negative unless documented below Constitutional Constitutional: Reports system reviewed and no additional complaints, except as documented *Cardiovascular Cardiovascular: Reports as per HPI *Respiratory Respiratory: Reports system reviewed and no additional complaints, except as documented *Gastrointestinal Gastrointestinal: Reports as per HPI *Genitourinary Genitourinary: Reports system reviewed and no additional complaints, except as documented *Musculoskeletal Musculoskeletal: Reports system reviewed and no additional complaints, except as documented *Neurologic Neurologic: Reports system reviewed and no additional complaints, except as documented Meds Home Medications and Allergies Home Medications ?Medication ?Instructions ?Recorded ?Confirmed ?Type lidocaine 5 % topical patch 1 patch topical DAILY #30 ea 12/14/22 01/02/25 Rx mupirocin 2 % topical ointment 1 applic topical BID #22 grams 03/08/23 01/02/25 Rx nitroglycerin 0.4 mg sublingual 0.4 mg sublingual Q5M PRN chest 06/15/23 01/02/25 Rx tablet pain #25 tabs aspirin 81 mg chewable tablet 81 mg PO DAILY 30 days #30 tabs 06/27/23 01/02/25 Rx (Kan Chewable Low Dose Aspirin) hydroxyzine HCl 25 mg tablet 25 mg PO BID PRN Anxiety or sleep 09/01/23 01/02/25 Rx Held on 01/30/24. #30 tabs Instructions: Home Medication placed on hold at Doctor's office trazodone 50 mg tablet 50 mg PO HS #30 tabs 01/05/24 05/08/25 Rx metoprolol succinate 25 mg 25 mg PO BID #180 tabs 10/31/23 01/02/25 Rx tablet,extended release 24 hr (Toprol XL) clopidogrel 75 mg tablet (Plavix) 75 mg PO DAILY 30 days #30 tabs 01/30/24 01/02/25 Rx diclofenac sodium 1 % topical gel 2 g topical QID #100 grams 01/30/24 01/02/25 Rx rivaroxaban 20 mg tablet (Xarelto) 20 mg PO DAILY #30 tabs 10/15/24 01/02/25 Rx albuterol sulfate 0.63 mg/3 mL 0.63 mg (3 mL) inhalation Q4-6H 10/18/24 01/02/25 Rx solution for nebulization PRN shortness of breath or wheezing #90 mL albuterol sulfate 90 mcg/actuation 2 puff inhalation Q4-6H PRN 10/18/24 01/02/25 Rx aerosol inhaler shortness of breath or wheezing #18 grams fluticasone 250 mcg-salmeterol 50 1 inh inhalation BID #60 ea 10/18/24 01/02/25 Rx mcg/dose blistr powdr for inhalation (Advair Diskus) hydrochlorothiazide 25 mg tablet 25 mg PO DAILY #30 tabs 10/18/24 01/02/25 Rx amlodipine 2.5 mg tablet See Rx Instructions .Route 11/05/24 01/02/25 Rx .COMPLEX #90 tabs duloxetine 30 mg capsule,delayed 30 mg PO BID #60 caps 11/05/24 01/02/25 Rx release gabapentin 100 mg capsule See Rx Instructions .Route 11/05/24 01/02/25 Rx .COMPLEX #150 caps rosuvastatin 40 mg tablet See Rx Instructions .Route 11/05/24 01/02/25 Rx .COMPLEX Cholesterol #90 ea lisinopril 40 mg tablet 40 mg PO DAILY #90 tabs 01/02/25 01/02/25 Rx ranolazine 500 mg tablet,extended 500 mg PO BID #180 tabs 01/02/25 01/02/25 Rx release,12 hr New Prescriptions to Start Prescriptions: Allergies Allergy/AdvReac Type Severity Reaction Status Date / Time No Known Allergies Allergy Verified 01/02/25 10:44 Exam Data for Last 24 hours Vital signs and Labs for Last 24 Hours: Temp Pulse Resp BP Pulse Ox O2 Del Method O2 Flow Rate 98.7 F 63 26 H 137/87 94 L Room Air 2 01/23/25 21:51 01/23/25 22:00 01/23/25 22:00 01/23/25 22:00 01/23/25 22:00 01/23/25 22:00 01/23/25 21:51 Laboratory Results - last 24 hr 01/23/25 21:36: WBC 13.4 H, RBC 4.85, Hgb 15.0, Hct 45.7, MCV 94.2 H, MCH 30.9, MCHC 32.8, RDW 13.8, Plt Count 227, MPV 10.0, Neut % (Auto) 65.1, Lymph % (Auto) 23.4, [place] % (Auto) 9.7 H, Eos % (Auto) 1.0, Baso % (Auto) 0.5, Neut # (Auto) 8.7 H, Lymph # (Auto) 3.1, [place] # (Auto) 1.3 H, Eos # (Auto) 0.1, Baso # (Auto) 0.1, Sodium 136, Potassium 4.2, Chloride 103, Carbon Dioxide 28, Anion Gap 9.2, BUN 12, Creatinine 1.00, Estimated Creat Clear 94, Estimated GFR 75, Est GFR ( Amer) 91, Glucose 117 H, Calcium 9.7, Magnesium 1.8, Total Bilirubin 0.3, AST 20, ALT 18, Alkaline Phosphatase 89, Troponin I < 0.01, Total Protein 7.5, Albumin 4.5, Globulin 3.0, Albumin/Globulin Ratio 1.5 I & O for Last 24 hours: Intake & Output 01/20/25 01/21/25 01/22/25 01/23/25 23:59 23:59 23:59 23:59 Weight 90.718 kg Constitutional Constitutional: no acute distress *Routine HEENT Exam Head: Present normocephalic Eye: Present EOMI and PERRL ENT: Present mucous membranes moist *Routine Neck Exam Neck: Present supple; Absent lymphadenopathy *Routine Respiratory Exam Respiratory: Present CTA bilaterally *Routine Cardiovascular Exam Cardiovascular: Present Normal S1, Normal S2, tachycardia and irregularly irregular; Absent murmur *Routine Abdominal Exam Abdominal: Present soft, normoactive bowel sounds and distended; Absent tenderness *Routine Rectal Exam Rectal:: deferred *Routine Genitalia Exam Genitalia:: deferred *Routine Extremities Exam Extremities: Absent cyanosis, clubbing or edema *Routine Skin Exam Skin: Present warm; Absent rash *Routine Neurological Exam Neurological: Present alert and oriented X3 Assessment and Plan *Assessment and plan (1) Hyperlipidemia: Status: Acute Qualifiers: Hyperlipidemia type: mixed hyperlipidemia Qualified Code(s): E78.2 - Mixed hyperlipidemia Category: Medical Code(s): E78.5 - Hyperlipidemia, unspecified (2) Angina pectoris: Status: Acute Category: Medical Code(s): I20.9 - Angina pectoris, unspecified (3) SOB (shortness of breath): Status: Acute Category: Medical Code(s): R06.02 - Shortness of breath (4) History of coronary artery stent placement: Problem Comment: VINNIE RCA (MAY 2023) Status: Acute Category: Surgical Code(s): Z95.5 - Presence of coronary angioplasty implant and graft (5) Tobacco use: Status: Acute Category: Social Hx Code(s): Z72.0 - Tobacco use (6) COPD (chronic obstructive pulmonary disease): Status: Acute Category: Medical Code(s): J44.9 - Chronic obstructive pulmonary disease, unspecified (7) Paroxysmal A-fib: Status: Acute Category: Medical Code(s): I48.0 - Paroxysmal atrial fibrillation (8) Hypertension: Status: Acute Qualifiers: Hypertension type: unspecified Qualified Code(s): I10 - Essential (primary) hypertension Category: Medical Code(s): I10 - Essential (primary) hypertension Plan 65-year-old man multiple cardiovascular risk factors including CAD with PCI to RCA. Presenting wit symptomatic atrial flutter 2-1. Mild lateral ST depressions. POCUS LVEF normal. Received diltiazem in the emergency department with improvement of ventricular response. abdominal pain resolved, suspect referred angina. Will admit for further monitoring of symptomatic A-fib Paroxysmal a flutter, 2-1 - Echo - Telemetry - Cardiology consult - Diltiazem 20 IV in ED, received Started diltiazem 120 - continue toprol, increase as tolerated Coronary artery disease -Risk factor modification secondary prevention - on triple therapy, stop asa, continue plavix and xarelto -Resume antianginals -Lipid panel -LDL goal less than 55, add Zetia if above goal - continue home medications Hypertension - Continue home medications - Discontinue amlodipine since he is on diltiazem
[2025-01-23 22:30] VITALS: BP 124/70; PULSE 75; RESP 21; O2SAT 95
[2025-01-23 22:30] LABS: NT Pro Brain Natriuretic Pep. 44.1 pg/mL (0-125)
[2025-01-23] MEDS: AEROCHAMBER/OPTIHALER 1 UNIT MC (22:47)
[2025-01-23 22:59] VITALS: BP 124/70; PULSE 92; RESP 25; TEMP 36.9; O2SAT 95
[2025-01-23 22:59] LABS: HIV Combo NEGATIVE (Negative)
--- NOTE | 2025-01-23 22:59 | PC.NURSE ---
Report called to ZAC Snell
[2025-01-23] MEDS: METOPROLOL SUCCINATE XL 25MG TABLET 25 MG PO (23:04)
[2025-01-23 23:07] LABS: Hepatitis C Ab Qual. W/ RFX NEGATIVE (Negative)
--- NOTE | 2025-01-23 23:19 | PC.NURSE ---
Patient arrived to floor via wheelchair from ED at 23:17.
[2025-01-23 23:33] VITALS: BP 140/80; PULSE 86; RESP 23; TEMP 36.6; O2SAT 96; BMI 32.1
--- NOTE | 2025-01-24 00:49 | PC.NURSE ---
Pt's med rec couldn't be completed. Both pt and pt's daughter couldn't verify all medications the pt takes at home.
[2025-01-24] MEDS: ACETAMINOPHEN 325MG TAB 650 MG PO (01:34)
[2025-01-24 01:51] LABS: Troponin I < 0.01 ng/ml (0.00-0.034)
[2025-01-24 04:00] VITALS: BP 107/68; PULSE 66; PULSE 70; RESP 18; TEMP 36.8; O2SAT 96; BMI 32.3
[2025-01-24 04:24] LABS: Troponin I < 0.01 ng/ml (0.00-0.034)
--- NOTE | 2025-01-24 04:46 | PC.NURSE ---
New Admit. v/s, ox4. Pt stated he's going home today even if he signs out due to his grandkid's graduation. Daughter was at bedside over night. Pt denied chest pain/discomfort. Pt on 2LNC-baseline. Plan of care ongoing.
[2025-01-24 06:16] LABS: Basophils # 0.1 K/mm3 (0-0.2); Basophils % 0.5 % (0.1-2.0); Eosinophils # 0.1 Kmm3 (0.0-0.4); Eosinophils % 1.2 % (0.1-12.0); Hematocrit 39.2 % (42.0-52.0); Immature Granulocytes # 0.03 10^3uL; Immature Granulocytes % 0.3 %; Lymphocytes # 2.3 K/mm3 (0.7-4.5); Lymphocytes % 24.8 % (10-50); Mean Corpuscular HGB Conc 33.9 g/dL (31.8-35.4); Mean Corpuscular Volume 94.5 fl (80-94); Mean Platelet Volume 9.8 fl (7.4-10.4); Monocytes # 0.9 K/mm3 (0.1-1.0); Monocytes % 10.2 % (1.7-9.3); Neutrophils # 5.8 K/mm3 (1.8-7.8); Nucleated Red Blood Cells # 0 10^3/uL; Nucleated Red Blood Cells % 0 %; Platelet Count 203 K/mm3 (142-424); Red Blood Count 4.15 M/mm3 (4.60-6.20); Red Cell Distribution Width 13.7 % (11.5-17.5); Red Cell Distribution Width-SD 47.7 fL; White Blood Count 9.2 K/mm3 (4.8-10.8)
[2025-01-24 06:27] LABS: Hemoglobin 13.3 g/dL (14.1-18.0)
[2025-01-24 06:33] LABS: Alanine Aminotransferase 14 U/L (12-78); Albumin Level 3.8 g/dl (3.5-5.0); Albumin/Globulin Ratio 1.6 (1.1-1.8); Alkaline Phosphatase 70 U/L (38-126); Anion Gap 10.1 mEq/L (5-15); Aspartate Amino Transferase 13 U/L (17-59); Bilirubin,Total 0.6 mg/dl (0.2-1.3); Blood Urea Nitrogen 13 mg/dl (9-20); Calcium 8.8 mg/dl (8.4-10.2); Carbon Dioxide 25 mmol/L (22.0-30.0); Chloride 105 mmol/L (98-107); Creatinine Clearance Estimated 95 mL/min (50-200); Estimated Glomerular Filt Rate 75 ml/min (>60); GFR (African American) 91 ML/MIN (>60); Globulin 2.4 g/dL (1.3-3.2); Glucose 103 mg/dl (74-100); Magnesium 1.9 mg/dl (1.6-2.3); Potassium 4.1 mmoL/L (3.5-5.1); Sodium 136 mmol/L (136-145); Total Protein,Serum 6.2 g/dl (6.3-8.2)
[2025-01-24 06:41] LABS: Troponin I < 0.01 ng/ml (0.00-0.034)
[2025-01-24 07:54] VITALS: BP 107/68; PULSE 74; RESP 26; TEMP 36.7; O2SAT 97
[2025-01-24 08:00] VITALS: PULSE 60
[2025-01-24] MEDS: RANOLAZINE 500MG ER TABLET 500 MG PO (08:24)
[2025-01-24] MEDS: LISINOPRIL 20MG TABLET 40 MG PO (08:24)
[2025-01-24] MEDS: METOPROLOL SUCCINATE XL 25MG TABLET 25 MG PO (08:24)
[2025-01-24] MEDS: hydroCHLOROthiazide 25MG TABLET 25 MG PO (08:24)
[2025-01-24] MEDS: CLOPIDOGREL 75MG TAB 75 MG PO (08:24)
[2025-01-24] MEDS: GABAPENTIN 100MG CAPSULE 100 MG PO (08:24)
[2025-01-24 09:49] VITALS: O2SAT 91
--- NOTE | 2025-01-24 09:55 | HMH.PHAINT1 ---
Pharmacy Intervention Comments: PT IS A POOR HISTORIAN, HOME MEDICATION LIST VERIFIED USING LIST FROM OUTPATIENT PHARMACY AND CARDIOLOGY OFFICE NOTES
[2025-01-24 11:15] LABS: Chol/HDL Ratio 2.8 (1-3.5); Cholesterol 85 mg/dl (140-200); HDL Cholesterol 30 mg/dl (40-60); Triglycerides 88 mg/dl (30-150); VLDL Cholesterol 18 mg/dL (0-40)
--- NOTE | 2025-01-24 11:25 | ECG_ITS ---
APPROVED REPORT Exam: Resting ECG HR:64 bpm ECG Measurements Heart Rate 64 AXES IN 168 P -5 QRSd 93 QRS 47 QT 362 T 91 QTc 372 Conclusion SINUS RHYTHM NONSPECIFIC T-WAVE ABNORMALITY BORDERLINE ECG UNCONFIRMED REPORT Electronically signed by : Hung Mattson MD 01/24/2025 14:41:06
[2025-01-24 11:26] LABS: Direct LDL Cholesterol 33.13 mg/dL (100-129)
--- NOTE | 2025-01-24 11:34 | EXP.CARD.CON ---
History of Present Illness History of Present Illness Consult date: 01/24/25 Requesting physician: Todd Kang Consult reason: atrial fibrillation and shortness of breath Chief complaint: Abdominal pain, shortness of breath and atrial fibrillation History of present illness: This is a 65-year-old white gentleman who presented to the emergency department with abdominal pain and shortness of breath. He states that his symptoms started approximately 2 days ago. He states that the shortness of breath was only mild. He was having this abdominal discomfort and felt his heart racing. The patient denies any chest pain or pressure. He denies any lower extremity edema. He denies any fever, chills, nausea, vomiting, diarrhea, PND or orthopnea. Upon arrival to the emergency department he was found to be in 2-1 atrial flutter with a rate in the 150s. He was treated with IV diltiazem and his rate improved. He was subsequently started on oral diltiazem and he is now in sinus rhythm. This morning he states he feels great. He states his palpitations and abdominal pain have resolved. He states his shortness of breath has resolved. He is ready to be discharged home. [facility] Disclaimer: The information contained in this section may have been updated after the patient was seen, as this information can be updated by other users. Medical History Hyperlipidemia Angina pectoris SOB (shortness of breath) Nocturnal hypoxemia Emphysema lung COPD (chronic obstructive pulmonary disease) Tobacco use disorder, continuous Hypertension Osteoarthritis of knees, bilateral Chronic pain Pulmonary nodule less than 1 cm in diameter with low risk for malignant neoplasm due for CT follow-up in 04/2025 Skin lesion of face Screening for lung cancer Macrocytosis Anxiety Screening PSA (prostate specific antigen) Frozen shoulder Coronary artery disease History of skin cancer Paroxysmal A-fib Surgical History History of cholecystectomy (~2018) History of coronary artery stent placement VINNIE RCA (MAY 2023) Family History Other No significant family history Social History Smoking Status: Current every day smoker tobacco type: cigarettes packs per day: 2 smoking status start date: 1977 years smoked: 46 second hand exposure: Yes alcohol intake: never substance use type: denies use current occupational status: employed Travel in the last 8 weeks?: None household members: spouse and children housing: house current occupational exposures/hazards: No caffeine: Yes Have you lived/traveled outside [place] in past 30 days?: No Contact w/someone who lives/traveled outside [place] past 30 days?: No Exposure to someone with infectious disease in past 14 days?: No Do you have a fever (greater than 100.4 F or 38 C)?: No Have you tested positive for COVID-19?: No Exposed to someone with COVID-19 in past 14 days?: No Do you have a sore throat?: No Do you have a cough?: No Do you have any weakness?: No Do you have any diarrhea?: No Are you experiencing any unusual bleeding?: No Do you have any muscle aches/pain?: No Do you have any abdominal pain?: No Are you experiencing loss of taste or smell?: No Review of Systems Review of Systems Review of systems:: pertinent systems reviewed and negative unless documented below Constitutional Constitutional: Reports system reviewed and no additional complaints, except as documented and Reports lethargy Eyes Eyes: Reports system reviewed and no additional complaints, except as documented ENT Ears, Nose, Mouth, and Throat: Reports system reviewed and no additional complaints, except as documented *Cardiovascular Cardiovascular: Reports system reviewed and no additional complaints, except as documented, Denies chest pain, Reports dyspnea on exertion, Reports palpitations and Reports rapid heart rate *Respiratory Respiratory: Reports system reviewed and no additional complaints, except as documented and Reports dyspnea on exertion *Gastrointestinal Gastrointestinal: Reports system reviewed and no additional complaints, except as documented and Reports abdominal pain *Genitourinary Genitourinary: Reports system reviewed and no additional complaints, except as documented *Musculoskeletal Musculoskeletal: Reports system reviewed and no additional complaints, except as documented Integumentary/Breasts Skin/Breast: Reports system reviewed and no additional complaints, except as documented *Neurologic Neurologic: Reports system reviewed and no additional complaints, except as documented Psychiatric Psychiatric: Reports system reviewed and no additional complaints, except as documented Endocrine Endocrine: Reports system reviewed and no additional complaints, except as documented and Reports palpitations Hematologic/Lymphatic Hematologic/Lymphatic: Reports system reviewed and no additional complaints, except as documented Allergic/Immunologic Allergic/Immunologic: Reports system reviewed and no additional complaints, except as documented Exam Data for Last 24 hours Vital signs and Labs for Last 24 Hours: Temp Pulse Resp BP Pulse Ox O2 Del Method O2 Flow Rate 98.0 F 74 26 H 107/68 L 91 L Room Air 2 01/24/25 07:54 01/24/25 07:54 01/24/25 07:54 01/24/25 07:54 01/24/25 09:49 01/24/25 09:49 01/24/25 09:00 Laboratory Results - last 24 hr 01/23/25 21:36: WBC 13.4 H, RBC 4.85, Hgb 15.0, Hct 45.7, MCV 94.2 H, MCH 30.9, MCHC 32.8, RDW 13.8, Plt Count 227, MPV 10.0, Neut % (Auto) 65.1, Lymph % (Auto) 23.4, [place] % (Auto) 9.7 H, Eos % (Auto) 1.0, Baso % (Auto) 0.5, Neut # (Auto) 8.7 H, Lymph # (Auto) 3.1, [place] # (Auto) 1.3 H, Eos # (Auto) 0.1, Baso # (Auto) 0.1, Sodium 136, Potassium 4.2, Chloride 103, Carbon Dioxide 28, Anion Gap 9.2, BUN 12, Creatinine 1.00, Estimated Creat Clear 94, Estimated GFR 75, Est GFR ( Amer) 91, Glucose 117 H, Calcium 9.7, Magnesium 1.8, Total Bilirubin 0.3, AST 20, ALT 18, Alkaline Phosphatase 89, Troponin I < 0.01, NT-Pro-B Natriuret Pep 44.1, Total Protein 7.5, Albumin 4.5, Globulin 3.0, Albumin/Globulin Ratio 1.5, HCV Ab CAROLYN w/Rflx PCR Qn Negative, HIV Ag/Ab Combo Qual Negative 01/24/25 01:13: Troponin I < 0.01 01/24/25 03:54: Troponin I < 0.01 01/24/25 05:45: WBC 9.2 D, RBC 4.15 L, Hgb 13.3 L D, Hct 39.2 L, MCV 94.5 H, MCH 32.0 H, MCHC 33.9, RDW 13.7, Plt Count 203, MPV 9.8, Neut % (Auto) 63.0, Lymph % (Auto) 24.8, [place] % (Auto) 10.2 H, Eos % (Auto) 1.2, Baso % (Auto) 0.5, Neut # (Auto) 5.8, Lymph # (Auto) 2.3, [place] # (Auto) 0.9, Eos # (Auto) 0.1, Baso # (Auto) 0.1, Sodium 136, Potassium 4.1, Chloride 105, Carbon Dioxide 25, Anion Gap 10.1, BUN 13, Creatinine 1.00, Estimated Creat Clear 95, Estimated GFR 75, Est GFR ( Amer) 91, Glucose 103 H, Calcium 8.8, Phosphorus 4.0, Magnesium 1.9, Total Bilirubin 0.6, AST 13 L D, ALT 14, Alkaline Phosphatase 70, Troponin I < 0.01, Total Protein 6.2 L, Albumin 3.8 D, Globulin 2.4, Albumin/Globulin Ratio 1.6, Triglycerides 88, Cholesterol 85 L, LDL Cholesterol Direct 33.13 L, VLDL Cholesterol 18, HDL Cholesterol 30 L, Cholesterol/HDL Ratio 2.8 I & O for Last 24 hours: Intake & Output 01/21/25 01/22/25 01/23/25 01/24/25 23:59 23:59 23:59 23:59 Intake Total 480 / 480 Output Total 0 / 0 0 / 0 Balance 0 / 240 480 / 480 Weight 200 lb 5 oz 201 lb 7 oz Constitutional Constitutional: no acute distress and average body habitus *Routine HEENT Exam Head: Present normocephalic and atraumatic ENT: Present mucous membranes moist *Routine Neck Exam Neck: Present supple, full ROM and normal carotid upstroke; Absent JVD, carotid bruit or lymphadenopathy *Routine Respiratory Exam Respiratory: Present CTA bilaterally, normal respiratory effort, able to speak in complete sentences and symmetric chest movement *Routine Cardiovascular Exam Cardiovascular: Present RRR, Normal S1 and Normal S2; Absent murmur or gallop *Routine Abdominal Exam Abdominal: Present soft and normoactive bowel sounds; Absent tenderness, distended or organomegaly *Routine Extremities Exam Extremities: Present full ROM, pulses intact and normal capillary refill; Absent cyanosis, clubbing or edema *Routine Skin Exam Skin: Present intact and warm; Absent erythema *Routine Neurological Exam Neurological: Present alert, oriented X3 and CN II-XII intact; Absent sensory deficit or motor deficit Routine Psychiatric Exam Psychiatric: Present normal affect Meds Home Medications and Allergies Home Medications ?Medication ?Instructions ?Recorded ?Confirmed ?Type nitroglycerin 0.4 mg sublingual 0.4 mg sublingual Q5M PRN chest 06/15/23 01/24/25 Rx tablet pain #25 tabs aspirin 81 mg chewable tablet 81 mg PO DAILY 30 days #30 tabs 06/27/23 01/24/25 Rx (Kan Chewable Low Dose Aspirin) trazodone 50 mg tablet 50 mg PO HS #30 tabs 09/01/23 01/24/25 Rx metoprolol succinate 25 mg 25 mg PO BID #180 tabs 10/31/23 01/24/25 Rx tablet,extended release 24 hr (Toprol XL) clopidogrel 75 mg tablet (Plavix) 75 mg PO DAILY 30 days #30 tabs 01/30/24 01/24/25 Rx fluticasone 250 mcg-salmeterol 50 1 inh inhalation BID #60 ea 10/18/24 01/24/25 Rx mcg/dose blistr powdr for inhalation (Advair Diskus) hydrochlorothiazide 25 mg tablet 25 mg PO DAILY #30 tabs 10/18/24 01/24/25 Rx duloxetine 30 mg capsule,delayed 30 mg PO BID #60 caps 11/05/24 01/24/25 Rx release lisinopril 40 mg tablet 40 mg PO DAILY #90 tabs 01/02/25 01/24/25 Rx ranolazine 500 mg tablet,extended 500 mg PO BID #180 tabs 01/02/25 01/24/25 Rx release,12 hr amlodipine 2.5 mg tablet 2.5 mg PO DAILY 01/24/25 01/24/25 History gabapentin 100 mg capsule 100 mg PO DIRECTED 01/24/25 01/24/25 History rivaroxaban 20 mg tablet (Xarelto) 20 mg PO QPMWITHMEAL 01/24/25 01/24/25 History rosuvastatin 40 mg tablet 40 mg PO HS 01/24/25 01/24/25 History New Prescriptions to Start Prescriptions: Allergies Allergy/AdvReac Type Severity Reaction Status Date / Time No Known Allergies Allergy Verified 01/02/25 10:44 Assessment and Plan *Assessment and plan (1) Atrial flutter: Status: Acute Qualifiers: Atrial flutter type: typical Qualified Code(s): I48.3 - Typical atrial flutter Category: Medical Code(s): I48.92 - Unspecified atrial flutter (2) Hyperlipidemia: Status: Acute Qualifiers: Hyperlipidemia type: mixed hyperlipidemia Qualified Code(s): E78.2 - Mixed hyperlipidemia Category: Medical Code(s): E78.5 - Hyperlipidemia, unspecified (3) Hypertension: Status: Acute Qualifiers: Hypertension type: unspecified Qualified Code(s): I10 - Essential (primary) hypertension Category: Medical Code(s): I10 - Essential (primary) hypertension Plan Plan: 1. The patient presented to the emergency department abdominal pain and shortness of breath as well as palpitations. He was found to be in 2-1 atrial flutter with a rate in the 150s. He was treated with IV diltiazem and did rate control. He has been started on oral diltiazem and is now in sinus rhythm. Continue diltiazem ER 120 mg p.o. daily for suppression of atrial fibrillation. 2. Continue metoprolol tartrate 25 mg p.o. twice daily for suppression of atrial fibrillation as well. 3. The patient is on long-term anticoagulation with Xarelto. 4. He denies any chest pain or pressure. His troponins are negative. Recent stress test shows no ischemia. No plans for invasive left cardiac catheterization at this time. 5. His blood pressure is well-controlled. Continue metoprolol, lisinopril, HCTZ for blood pressure control. 6. His LDL goal is less than 55. He is on a statin. 7. No further recommendations at this time from a cardiac standpoint. He is stable for discharge home today from a cardiac standpoint. He can follow-up in cardiology clinic in 2 weeks. 8. The patient will need to be discharged on the following cardiac medications: Aspirin 81 mg daily, Plavix 75 mg daily, hydrochlorothiazide 25 mg daily, lisinopril 40 mg daily, metoprolol XL 25 mg p.o. twice daily, Ranexa 500 mg p.o. twice daily, Xarelto 20 mg daily, Crestor 40 mg p.o. nightly and diltiazem ER 120 mg p.o. daily. Stop amlodipine. Thank you for the opportunity to participate in the care of this patient. All recommendations and orders are per Dr. Loza.
--- NOTE | 2025-01-24 11:48 | EXP.DC.SUM ---
General Admission date:: 01/23/25 Discharge date: 01/24/25 HPI HPI HPI: 65-year-old male who presents to the emergency department secondary to abdominal pain and also which is generalized discomfort. His symptoms started approximately 2 days ago and have been continuous. Also feels mildly short of breath. Otherwise cannot feel the palpitations. On arrival to the emergency department initial triage demonstrated a flutter 2-1, heart rate 150. EKG again demonstrated a flutter to [address] depressions. POCUS performed by myself demonstrated normal LVEF, dilated IVC RA pressure 15 mmHg. Patient was given 20 mg IV diltiazem with improvement to heart rate 110. Subsequently started on p.o. diltiazem. 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 Hypertension. Hyperlipidemia. Paroxysmal A-fib on Xarelto Hospital Course Hospital Course Hospital Course: 65-year-old man multiple cardiovascular risk factors including CAD with PCI to RCA. Presenting wit symptomatic atrial flutter 2-1. Mild lateral ST depressions. POCUS LVEF normal. Received diltiazem in the emergency department with improvement of ventricular response. abdominal pain resolved, suspect referred angina. Admitted for monitoring of night. Heart rate did better. Cardiology evaluated, recommend adjustment with addition of diltiazem. Stable discharge home with close follow-up. Problems addressed as follows: Paroxysmal a flutter, 2-1 CAD Hypertension -Presented with some abdominal pain and tachyarrhythmia. Found to be in paroxysmal a flutter. Normally takes metoprolol at home. He was given a dose of diltiazem in the ED with improvement. Started on oral diltiazem. Heart rate improved by morning. 66 on morning rounds. Cardiology evaluated. Recommended adjustments with continuation of aspirin 81 mg daily, Plavix 75 mg daily, HCTZ 25 mg daily, lisinopril 40 mg daily, metoprolol succinate 25 mg twice daily, Ranexa 500 mg twice daily, Xarelto 20 mg daily, Crestor 40 mg nightly. Will add diltiazem extended release 120 mg daily. Recommend stopping amlodipine. Given improvement in rate control, stable to discharge home with close follow-up with cardiology. Continue chronic oxygen at 2 L for chronic hypoxemic respiratory failure. Along with home Advair for COPD Continue home gabapentin regimen for neuropathy Exam Data for Last 24 hours Vital signs and Labs for Last 24 Hours: Temp Pulse Resp BP Pulse Ox O2 Del Method O2 Flow Rate 98.0 F 74 26 H 107/68 L 91 L Room Air 2 01/24/25 07:54 01/24/25 07:54 01/24/25 07:54 01/24/25 07:54 01/24/25 09:49 01/24/25 09:49 01/24/25 09:00 Laboratory Results - last 24 hr 01/23/25 21:36: WBC 13.4 H, RBC 4.85, Hgb 15.0, Hct 45.7, MCV 94.2 H, MCH 30.9, MCHC 32.8, RDW 13.8, Plt Count 227, MPV 10.0, Neut % (Auto) 65.1, Lymph % (Auto) 23.4, [place] % (Auto) 9.7 H, Eos % (Auto) 1.0, Baso % (Auto) 0.5, Neut # (Auto) 8.7 H, Lymph # (Auto) 3.1, [place] # (Auto) 1.3 H, Eos # (Auto) 0.1, Baso # (Auto) 0.1, Sodium 136, Potassium 4.2, Chloride 103, Carbon Dioxide 28, Anion Gap 9.2, BUN 12, Creatinine 1.00, Estimated Creat Clear 94, Estimated GFR 75, Est GFR ( Amer) 91, Glucose 117 H, Calcium 9.7, Magnesium 1.8, Total Bilirubin 0.3, AST 20, ALT 18, Alkaline Phosphatase 89, Troponin I < 0.01, NT-Pro-B Natriuret Pep 44.1, Total Protein 7.5, Albumin 4.5, Globulin 3.0, Albumin/Globulin Ratio 1.5, HCV Ab CAROLYN w/Rflx PCR Qn Negative, HIV Ag/Ab Combo Qual Negative 01/24/25 01:13: Troponin I < 0.01 01/24/25 03:54: Troponin I < 0.01 01/24/25 05:45: WBC 9.2 D, RBC 4.15 L, Hgb 13.3 L D, Hct 39.2 L, MCV 94.5 H, MCH 32.0 H, MCHC 33.9, RDW 13.7, Plt Count 203, MPV 9.8, Neut % (Auto) 63.0, Lymph % (Auto) 24.8, [place] % (Auto) 10.2 H, Eos % (Auto) 1.2, Baso % (Auto) 0.5, Neut # (Auto) 5.8, Lymph # (Auto) 2.3, [place] # (Auto) 0.9, Eos # (Auto) 0.1, Baso # (Auto) 0.1, Sodium 136, Potassium 4.1, Chloride 105, Carbon Dioxide 25, Anion Gap 10.1, BUN 13, Creatinine 1.00, Estimated Creat Clear 95, Estimated GFR 75, Est GFR ( Amer) 91, Glucose 103 H, Calcium 8.8, Phosphorus 4.0, Magnesium 1.9, Total Bilirubin 0.6, AST 13 L D, ALT 14, Alkaline Phosphatase 70, Troponin I < 0.01, Total Protein 6.2 L, Albumin 3.8 D, Globulin 2.4, Albumin/Globulin Ratio 1.6, Triglycerides 88, Cholesterol 85 L, LDL Cholesterol Direct 33.13 L, VLDL Cholesterol 18, HDL Cholesterol 30 L, Cholesterol/HDL Ratio 2.8 I & O for Last 24 hours: Intake & Output 01/21/25 01/22/25 01/23/25 01/24/25 23:59 23:59 23:59 23:59 Intake Total 480 / 480 Output Total 0 / 0 0 / 0 Balance 0 / 240 480 / 480 Weight 90.86 kg 91.371 kg Constitutional Constitutional: no acute distress, average body habitus and chronically ill appearing *Routine HEENT Exam Head: Present normocephalic and atraumatic Eye: Present EOMI ENT: Present mucous membranes moist *Routine Neck Exam Neck: Present supple, full ROM and normal carotid upstroke; Absent JVD, carotid bruit or lymphadenopathy *Routine Respiratory Exam Respiratory: Present CTA bilaterally, normal respiratory effort, able to speak in complete sentences and symmetric chest movement *Routine Cardiovascular Exam Cardiovascular: Present RRR, Normal S1 and Normal S2; Absent murmur or gallop *Routine Abdominal Exam Abdominal: Present soft and normoactive bowel sounds; Absent tenderness, distended or organomegaly *Routine Rectal Exam Patient deferred: visual exam *Routine Exam Patient deferred: penile exam *Routine Extremities Exam Extremities: Present full ROM, pulses intact and normal capillary refill; Absent cyanosis, clubbing or edema *Routine Skin Exam Skin: Present intact and warm; Absent erythema *Routine Neurological Exam Neurological: Present alert, oriented X3, CN II-XII intact and moving all extremities; Absent sensory deficit or motor deficit Routine Psychiatric Exam Psychiatric: Present normal affect Results Data Completed and Pending Labs on day of discharge: Labs from last 24 hours 01/24/25 01/24/25 01/24/25 05:45 03:54 01:13 WBC 9.2 D RBC 4.15 L Hgb 13.3 L D Hct 39.2 L MCV 94.5 H MCH 32.0 H MCHC 33.9 RDW 13.7 Plt Count 203 MPV 9.8 Neut % (Auto) 63.0 Lymph % (Auto) 24.8 [place] % (Auto) 10.2 H Eos % (Auto) 1.2 Baso % (Auto) 0.5 Neut # (Auto) 5.8 Lymph # (Auto) 2.3 [place] # (Auto) 0.9 Eos # (Auto) 0.1 Baso # (Auto) 0.1 Sodium 136 Potassium 4.1 Chloride 105 Carbon Dioxide 25 Anion Gap 10.1 BUN 13 Creatinine 1.00 Estimated Creat Clear 95 Estimated GFR 75 Est GFR ( Amer) 91 Glucose 103 H Calcium 8.8 Phosphorus 4.0 Magnesium 1.9 Total Bilirubin 0.6 AST 13 L D ALT 14 Alkaline Phosphatase 70 Troponin I < 0.01 < 0.01 < 0.01 NT-Pro-B Natriuret Pep Total Protein 6.2 L Albumin 3.8 D Globulin 2.4 Albumin/Globulin Ratio 1.6 Triglycerides 88 Cholesterol 85 L LDL Cholesterol Direct 33.13 L VLDL Cholesterol 18 HDL Cholesterol 30 L Cholesterol/HDL Ratio 2.8 HCV Ab CAROLYN w/Rflx PCR Qn HIV Ag/Ab Combo Qual 01/23/25 21:36 WBC 13.4 H RBC 4.85 Hgb 15.0 Hct 45.7 MCV 94.2 H MCH 30.9 MCHC 32.8 RDW 13.8 Plt Count 227 MPV 10.0 Neut % (Auto) 65.1 Lymph % (Auto) 23.4 [place] % (Auto) 9.7 H Eos % (Auto) 1.0 Baso % (Auto) 0.5 Neut # (Auto) 8.7 H Lymph # (Auto) 3.1 [place] # (Auto) 1.3 H Eos # (Auto) 0.1 Baso # (Auto) 0.1 Sodium 136 Potassium 4.2 Chloride 103 Carbon Dioxide 28 Anion Gap 9.2 BUN 12 Creatinine 1.00 Estimated Creat Clear 94 Estimated GFR 75 Est GFR ( Amer) 91 Glucose 117 H Calcium 9.7 Phosphorus Magnesium 1.8 Total Bilirubin 0.3 AST 20 ALT 18 Alkaline Phosphatase 89 Troponin I < 0.01 NT-Pro-B Natriuret Pep 44.1 Total Protein 7.5 Albumin 4.5 Globulin 3.0 Albumin/Globulin Ratio 1.5 Triglycerides Cholesterol LDL Cholesterol Direct VLDL Cholesterol HDL Cholesterol Cholesterol/HDL Ratio HCV Ab CAROLYN w/Rflx PCR Qn Negative HIV Ag/Ab Combo Qual Negative DS: Diagnosis Discharge Diagnosis (1) Atrial flutter: Status: Acute Code(s): I48.92 - Unspecified atrial flutter Qualifiers: Atrial flutter type: typical Qualified Code(s): I48.3 - Typical atrial flutter (2) Hyperlipidemia: Status: Acute Code(s): E78.5 - Hyperlipidemia, unspecified Qualifiers: Hyperlipidemia type: mixed hyperlipidemia Qualified Code(s): E78.2 - Mixed hyperlipidemia (3) Hypertension: Status: Acute Code(s): I10 - Essential (primary) hypertension Qualifiers: Hypertension type: unspecified Qualified Code(s): I10 - Essential (primary) hypertension (4) Emphysema lung: Status: Acute Code(s): J43.9 - Emphysema, unspecified (5) Nocturnal hypoxemia: Status: Acute Code(s): G47.34 - Idiopathic sleep related nonobstructive alveolar hypoventilation (6) Anxiety: Status: Acute Code(s): F41.9 - Anxiety disorder, unspecified (7) COPD (chronic obstructive pulmonary disease): Status: Acute Code(s): J44.9 - Chronic obstructive pulmonary disease, unspecified (8) Tobacco use: Status: Acute Code(s): Z72.0 - Tobacco use Meds Home Medications and Allergies Home Medications ?Medication ?Instructions ?Recorded ?Confirmed ?Type nitroglycerin 0.4 mg sublingual 0.4 mg sublingual Q5M PRN chest 06/15/23 01/24/25 Rx tablet pain #25 tabs aspirin 81 mg chewable tablet 81 mg PO DAILY 30 days #30 tabs 06/27/23 01/24/25 Rx (Kan Chewable Low Dose Aspirin) trazodone 50 mg tablet 50 mg PO HS #30 tabs 09/01/23 01/24/25 Rx metoprolol succinate 25 mg 25 mg PO BID #180 tabs 10/31/23 01/24/25 Rx tablet,extended release 24 hr (Toprol XL) clopidogrel 75 mg tablet (Plavix) 75 mg PO DAILY 30 days #30 tabs 01/30/24 01/24/25 Rx fluticasone 250 mcg-salmeterol 50 1 inh inhalation BID #60 ea 10/18/24 01/24/25 Rx mcg/dose blistr powdr for inhalation (Advair Diskus) hydrochlorothiazide 25 mg tablet 25 mg PO DAILY #30 tabs 10/18/24 01/24/25 Rx duloxetine 30 mg capsule,delayed 30 mg PO BID #60 caps 11/05/24 01/24/25 Rx release lisinopril 40 mg tablet 40 mg PO DAILY #90 tabs 01/02/25 01/24/25 Rx ranolazine 500 mg tablet,extended 500 mg PO BID #180 tabs 01/02/25 01/24/25 Rx release,12 hr diltiazem HCl 120 mg 120 mg PO DAILY #30 caps 01/24/25 Rx capsule,extended release 24 hr (Cartia XT) gabapentin 100 mg capsule 100 mg PO DIRECTED 01/24/25 01/24/25 History rivaroxaban 20 mg tablet (Xarelto) 20 mg PO QPMWITHMEAL 01/24/25 01/24/25 History rosuvastatin 40 mg tablet 40 mg PO HS 01/24/25 01/24/25 History New Prescriptions to Start Prescriptions: diltiazem HCl [Cartia XT] Todd Kang Allergies Allergy/AdvReac Type Severity Reaction Status Date / Time No Known Allergies Allergy Verified 01/02/25 10:44 Discharge Plan Disposition Patient Disposition: Home, Self-Care Condition: Fair Follow up Plan Follow up with: Hung Varma MD [Staff Physician, Family Practice] - 02/03/25 9:00 am Nic Loza MD [Staff Physician, Cardiology] - 02/04/25 1:45 pm Prescriptions/Medication Reconciliation: New diltiazem HCl [Cartia XT] 120 mg capsule,extended release 24hr 120 mg PO DAILY Qty: 30 0RF Continued nitroglycerin 0.4 mg tablet, sublingual 0.4 mg sublingual Q5M PRN (Reason: chest pain) Qty: 25 0RF Rx Instructions: do not exceed 3 doses per episode trazodone 50 mg tablet 50 mg PO HS Qty: 30 1RF lisinopril 40 mg tablet 40 mg PO DAILY Qty: 90 3RF ranolazine 500 mg tablet extended release 12 hr 500 mg PO BID Qty: 180 3RF metoprolol succinate [Toprol XL] 25 mg tablet extended release 24 hr 25 mg PO BID Qty: 180 3RF clopidogrel [Plavix] 75 mg tablet 75 mg PO DAILY 30 Days Qty: 30 6RF fluticasone propion-salmeterol [Advair Diskus] 250-50 mcg/dose blister with device 1 inh inhalation BID Qty: 60 2RF hydrochlorothiazide 25 mg tablet 25 mg PO DAILY Qty: 30 2RF duloxetine 30 mg capsule,delayed release(DR/EC) 30 mg PO BID Qty: 60 2RF aspirin [Kan Chewable Aspirin] 81 mg Tablet,Chewable 81 mg PO DAILY 30 Days Qty: 30 6RF gabapentin 100 mg capsule 100 mg PO DIRECTED Patient Comments: TAKE 1 CAPSULE BY MOUTH TWICE DAILY AND 3 TABLETS ONCE DAILY AT NIGHT rosuvastatin 40 mg tablet 40 mg PO HS Rx Instructions: Take 1 tablet by mouth once daily Xarelto 20 mg tablet 20 mg PO QPMWITHMEAL Rx Instructions: must administer with evening meal Discontinued amlodipine 2.5 mg tablet 2.5 mg PO DAILY Patient Comments: TAKE 1 TABLET BY MOUTH ONCE DAILY Problem Reconciliation Problems Reviewed?: Yes Patient Discharge Instructions ACTIVITY: Continue current activity DIET: continue same diet Patient Instructions: DI for Atrial Flutter Print Language: [place] Providers Primary Care Provider: Provider,Referral Admit Provider: Todd Kang Attending Provider: Todd Kang
--- NOTE | 2025-01-27 14:23 | CARE MANAGER ---
Contacted patient's family related to hospital discharge. She states he will be keeping his follow up appointments and is aware of new medication. Denies questions or concerns at this time. ZAC Barnes
== END 2025-01-24 13:17 | disposition home or self-care (01) ==
LOC: ER 21:38 → 2ND 22:55
PROVIDERS: Nurse Practitioner Family; Student in an Organized Health Care Education/Training Program; Admitting Provider Internal Medicine Adolescent Medicine; Emergency Provider Student in an Organized Health Care Education/Training Program; Visit Provider Internal Medicine Adolescent Medicine
DX: I48.92 Unspecified atrial flutter (principal); I48.0 Paroxysmal atrial fibrillation; E78.2 Mixed hyperlipidemia; I10 Essential (primary) hypertension; J43.9 Emphysema, unspecified; G47.34 Idiopathic sleep related nonobstructive alveolar hypoventilation; F41.9 Anxiety disorder, unspecified; J96.11 Chronic respiratory failure with hypoxia; R91.8 Other nonspecific abnormal finding of lung field; G62.9 Polyneuropathy, unspecified; I25.119 Atherosclerotic heart disease of native coronary artery with unspecified angina pectoris; F17.210 Nicotine dependence, cigarettes, uncomplicated; Z79.02 Long term (current) use of antithrombotics/antiplatelets; Z79.82 Long term (current) use of aspirin; Z95.5 Presence of coronary angioplasty implant and graft; Z79.51 Long term (current) use of inhaled steroids; Z79.899 Other long term (current) drug therapy; Z85.828 Personal history of other malignant neoplasm of skin; Z79.01 Long term (current) use of anticoagulants
CPT/HCPCS: 36415; 71046; 80053; 80061; 83735; 83880; 84100; 84484; 85025; 86803; 87389; 93005; 96374; 99291; G0378

== ENCOUNTER 2025-02-04 15:48 | Outpatient (CLI) | payer MEDICARE, MEDICAID, SELFPAY ==
[2025-02-04 17:12] LABS: Anion Gap 8.4 mEq/L (5-15); Blood Urea Nitrogen 12 mg/dl (9-20); Calcium 9.1 mg/dl (8.4-10.2); Carbon Dioxide 28 mmol/L (22.0-30.0); Chloride 102 mmol/L (98-107); Creatine Kinase 54 U/L (55-170); Estimated Glomerular Filt Rate 85 ml/min (>60); GFR (African American) 102 ML/MIN (>60); Glucose 92 mg/dl (74-100); Magnesium 1.8 mg/dl (1.6-2.3); Potassium 5.4 mmoL/L (3.5-5.1); Sodium 133 mmol/L (136-145)
[2025-02-04 17:26] LABS: Free T4 (Free Thyroxine) 0.91 ng/dl (0.78-2.19)
[2025-02-04 17:42] LABS: Thyroid Stimulating Hormone 1.36 uIU/mL (0.465-4.68)
== END 2025-02-04 23:59 | disposition home or self-care (01) ==
LOC: LAB 15:49
PROVIDERS: PCP Family Medicine; Visit Provider Internal Medicine
DX: I48.0 Paroxysmal atrial fibrillation (principal); I10 Essential (primary) hypertension
CPT/HCPCS: 36415; 80048; 82550; 83735; 84439; 84443; 93270

== ENCOUNTER 2025-02-13 12:32 | Outpatient (CLI) | payer MEDICARE, MEDICAID, SELFPAY ==
--- NOTE | 2025-02-13 13:00 | CA_ITS ---
FINAL REPORT CLINICAL HISTORY: HTN,HLD,SMOKER,SEIZURE LIKE ACTIVITY FINDINGS: The peak systolic velocity of the right common carotid artery is 40 cm/s. The peak systolic velocity of the right internal carotid artery is 95 cm/s and end diastolic velocity 40 cm/s. The ICA/CCA ratio is 2.4. A small amount of plaque is present. The right external carotid artery is patent. The right vertebral artery is patent with antegrade flow. The peak systolic velocity of the left common carotid artery is 66 cm/s. The peak systolic velocity of the left internal carotid artery is 65 cm/s and end diastolic velocity 28 cm/s. The ICA/CCA ratio is 1.0. A small amount of plaque is present. The left external carotid artery is patent.The left vertebral artery is patent with antegrade flow. IMPRESSION: Less than 50% bilateral carotid stenoses. Bilateral patent vertebral arteries with antegrade flow. If indicated, CTA or MRA could further evaluate. Reviewed, Interpreted and Dictated by Jose Enrique Curtis MD Transcribed by Iesha Delgado Authenticated and [facility]
== END 2025-02-13 23:59 | disposition home or self-care (01) ==
LOC: RT 12:32
PROVIDERS: PCP Family Medicine; Visit Provider Family Medicine
DX: I65.23 Occlusion and stenosis of bilateral carotid arteries (principal); I10 Essential (primary) hypertension; E78.5 Hyperlipidemia, unspecified; F17.200 Nicotine dependence, unspecified, uncomplicated; R56.9 Unspecified convulsions
CPT/HCPCS: 93880

== ENCOUNTER 2025-02-17 14:51 | Outpatient (CLI) | payer MEDICARE, MEDICAID, SELFPAY ==
--- NOTE | 2025-02-17 15:15 | CA_ITS ---
APPROVED REPORT EXAM: Comprehensive 2D, Doppler, and color-flow Echocardiogram Food Service Specialist: Betty Garcia RT(R) Ht: 5 ft 6 in Wt: 202lbs BSA: 2.01 BP: 144/78 mmHg Indications: Shortness of breath, COPD, atrial fibrillation, smoker 2D Dimensions LVEF (Cannon's) 46.00 % M: 52 - 72 LV Volume 112.60 mL M: 62 - 150 LV Volume Index 56.0 mL/m2 M: 34 - 74 LA Volume 32.90 mL LA Volume Index 16.37 mL/m2 (M/F) 16-34 EF AP4 58.30 % EF AP2 31.8 % EF BP 46.0 % GL Strain -12.8 % M-Mode Dimensions RVDd 2.82 cm (0.9-2.6) LA Diam 3.52 cm (1.9-4.0) LVDd 5.56 cm (3.5-5.7) LVDs 4.25 cm (3.5-5.7) IVSd 0.80 cm (0.6-1.1) PWd 0.80 cm (0.6-1.1) EF (Teich) 46.60% FS 23.60% EDV (Teich) 151.20 mL ESV (Teich) 80.80 mL LV Diastology E Decel Time 223 (160-240 msec) E/A Ratio 0.8 Mitral Valve MV E Max Binh. 54.0 (40-130 cm/s) MV A Velocity 65.0 (40-130 cm/s) E/A Ratio 0.83 MV PHT 65.0 ms Left Ventricle The left ventricle is normal size. The left ventricular systolic function is normal. The left ventricular ejection fraction is within the normal range. There is increased LV wall thickness. There is normal LV segmental wall motion. Transmitral Doppler flow pattern suggests impaired LV relaxation. LVEF is 55%. Right Ventricle The right ventricle is normal size. The right ventricular systolic function is normal. Atria The left atrium size is normal. The right atrium size is normal. There is no Doppler evidence of interatrial shunt. Aortic Valve The aortic valve is mildly thickened. Trace aortic regurgitation. There is no aortic valvular stenosis. Mitral Valve The mitral valve is normal in structure. No evidence of mitral valve stenosis. Trace mitral regurgitation. Tricuspid Valve Tricuspid valve is grossly normal in structure and function. Trace tricuspid regurgitation. There is insufficient TR jet to estimate RVSP. Pulmonic Valve The pulmonary valve is normal in structure. Trace pulmonic regurgitation. Great Vessels The aortic root is normal in size. IVC is normal in size and collapses >50% with inspiration. Pericardium There is no pericardial effusion. Other Information Study Quality: Fair Conclusion Normal biventricular systolic function. No significant valvular stenosis or regurgitation. Electronically signed by : Acacia Loza MD 02/22/2025 00:21:26
== END 2025-02-17 23:59 | disposition home or self-care (01) ==
PROVIDERS: PCP Family Medicine; Visit Provider Nurse Practitioner Family
DX: I48.91 Unspecified atrial fibrillation (principal); J44.9 Chronic obstructive pulmonary disease, unspecified; F17.200 Nicotine dependence, unspecified, uncomplicated; R06.02 Shortness of breath; R53.83 Other fatigue
CPT/HCPCS: 93306

== ENCOUNTER 2025-02-26 14:41 | Outpatient (CLI) | payer MEDICARE, MEDICAID, SELFPAY ==
[2025-02-26 16:12] LABS: Anion Gap 10.9 mEq/L (5-15); Blood Urea Nitrogen 16 mg/dl (9-20); Calcium 9.2 mg/dl (8.4-10.2); Carbon Dioxide 27 mmol/L (22.0-30.0); Chloride 99 mmol/L (98-107); Creatinine,Serum 1.10 mg/dl (0.66-1.25); Estimated Glomerular Filt Rate 67 ml/min (>60); GFR (African American) 81 ML/MIN (>60); Glucose 87 mg/dl (74-100); Magnesium 1.8 mg/dl (1.6-2.3); Potassium 4.9 mmoL/L (3.5-5.1); Sodium 132 mmol/L (136-145)
== END 2025-02-26 23:59 | disposition home or self-care (01) ==
LOC: LAB 14:41
PROVIDERS: PCP Family Medicine; Visit Provider Internal Medicine
DX: I10 Essential (primary) hypertension (principal); I25.118 Atherosclerotic heart disease of native coronary artery with other forms of angina pectoris
CPT/HCPCS: 36415; 80048; 83735

== ENCOUNTER → 2025-03-03 07:12 | Outpatient (CLI) | payer MEDICARE, MEDICAID, SELFPAY | LOC: SL 07:13 | PROVIDERS: PCP Family Medicine; Visit Provider Family Medicine | DX: G47.33 Obstructive sleep apnea (adult) (pediatric) (principal); G47.36 Sleep related hypoventilation in conditions classified elsewhere; G47.34 Idiopathic sleep related nonobstructive alveolar hypoventilation | CPT/HCPCS: G0399 ==

== ENCOUNTER 2025-03-11 10:21 | Outpatient (CLI) | payer MEDICARE, MEDICAID, SELFPAY ==
--- NOTE | 2025-03-11 | XR_ITS ---
FINAL REPORT CLINICAL HISTORY: right shoulder pain, states he is getting shoulder injection today COMPARISON: 12/27/2022 FINDINGS: Two views of the right shoulder show no evidence of acute displaced fracture or dislocation of the visualized bony architecture. Moderate degenerative changes of the glenohumeral joint are worse compared to the previous study. Mild AC joint arthropathy is also worse. IMPRESSION: Progressive degenerative changes. Reviewed, Interpreted and Dictated by Yehuda Cabrera MD Transcribed by Loretta Loo Authenticated and [facility]
== END 2025-03-11 23:59 | disposition home or self-care (01) ==
LOC: RAD 10:22
PROVIDERS: PCP Family Medicine; Visit Provider Orthopaedic Surgery
DX: M19.011 Primary osteoarthritis, right shoulder (principal)
CPT/HCPCS: 73030

== ENCOUNTER 2025-04-07 13:52 | Emergency (ER) | payer MEDICARE, MEDICAID, SELFPAY ==
[2025-04-07] VITALS (7 sets, daily range): BP systolic 117–158; BP diastolic 66–105; PULSE 35–74; RESP 12–19; TEMP 36.7–37; O2SAT 94–96; BMI 31.1
--- NOTE | 2025-04-07 13:59 | ECG_ITS ---
APPROVED REPORT Exam: Resting ECG HR:57 bpm ECG Measurements Heart Rate 57 AXES AK 158 P -12 QRSd 92 QRS 37 QT 413 T 58 QTc 407 Conclusion SINUS BRADYCARDIA BORDERLINE ECG UNCONFIRMED REPORT Electronically signed by : ADRIANE JACOBO, 04/07/2025 23:42:44
--- NOTE | 2025-04-07 14:04 | XR_ITS ---
FINAL REPORT CLINICAL HISTORY: Shortness of breath COMPARISON: 09/30/2024 FINDINGS: CHEST 1 VIEW No acute pulmonary opacity is present. There is no evidence of effusion or pneumothorax. Mediastinum is unremarkable. Heart size is normal. IMPRESSION: No acute abnormality. Reviewed, Interpreted and Dictated by Yehuda Cabrera MD Transcribed by Felicity Blount Authenticated and [facility]
--- NOTE | 2025-04-07 14:07 | HMH.EDCP ---
Discharge Plan Disposition Patient Disposition: Home, Self-Care Prescriptions Prescriptions: No Action trazodone 50 mg tablet 50 mg PO HS Qty: 30 1RF losartan 100 mg tablet 100 mg PO DAILY Qty: 30 3RF metoprolol succinate 50 mg tablet extended release 24 hr 50 mg PO BID Qty: 60 5RF nitroglycerin 0.4 mg tablet, sublingual 0.4 mg sublingual Q5M PRN (Reason: chest pain) Qty: 25 0RF Rx Instructions: do not exceed 3 doses per episode gabapentin 100 mg capsule 100 mg PO DIRECTED Rx Instructions: 1 PO q AM, 2 PO at HS clopidogrel [Plavix] 75 mg tablet 75 mg PO DAILY 30 Days Qty: 30 6RF Breztri Aerosphere 160-9-4.8 mcg/actuation HFA aerosol inhaler 2 inh inhalation BID 90 Days Qty: 10.7 3RF hydrochlorothiazide 25 mg tablet 25 mg PO DAILY Qty: 30 2RF ranolazine 500 mg tablet extended release 12 hr 500 mg PO BID Qty: 180 3RF diltiazem HCl [Cartia XT] 120 mg capsule,extended release 24hr 120 mg PO DAILY Qty: 90 3RF esomeprazole magnesium [Nexium] 40 mg capsule,delayed release(DR/EC) 40 mg PO DAILY 56 Days Qty: 90 3RF duloxetine 30 mg capsule,delayed release(DR/EC) 30 mg PO BID Qty: 60 2RF rosuvastatin 40 mg tablet 40 mg PO HS Qty: 30 5RF Rx Instructions: Take 1 tablet by mouth once daily Xarelto 20 mg tablet 20 mg PO QPMWITHMEAL Qty: 30 5RF Rx Instructions: must administer with evening meal aspirin [Kan Chewable Aspirin] 81 mg Tablet,Chewable 81 mg PO DAILY 30 Days Qty: 30 6RF Referrals Follow up/Referrals: Jay Bauer MD [Staff Physician, Cardiology] - See instructions Hung Varma MD [Primary Care Provider, Family Practice] - See instructions Activity Restrictions/Add. Instructions Additional Instructions/Restrictions: Increase fluids and rest. Wear a Holter monitor as instructed. Please call Dr. Bauer's office for an appointment this week. Return to ER if any problems or concerns Clinical Impressions Clinical Impression: COPD (chronic obstructive pulmonary disease) Chest pain Qualifiers: Chest pain type: chest pain due to myocardial ischemia Ischemic chest pain type: other angina pectoris type Qualified Code(s): I20.89 - Other forms of angina pectoris Instructions Patient Instructions: Chronic Obstructive Pulmonary Disease, DI for Chest Pain Print Language Print Language: Yakut Discharge ED Provider: Edgar Kam HPI <Gini Catarino (ED), CIGAR MAKING SUPERVISOR - Last Filed: 04/07/25 16:32> General Chief Complaint: Chest Pain Stated Complaint: CP Time Seen by Provider: 04/07/25 13:58 Mode of Arrival: Wheelchair Source of Information: Patient Description of Symptoms (Recalled from ER Triage Doc. by RN): PT AT ROUTINE PULMONOLOGY VISIT, STAFF REPORTED HR OF 35, PT REPORTS DIZZINESS, WEAKNESS AND MIDSTERNAL CHEST PAIN X 2 DAYS History of Present Illness HPI narrative: 65-year-old male presents to the ED today brought by the staff at pulmonology. His heart rate dropped to 35 while at the office today. Patient has been feeling weak all morning. He has been having midsternal chest pain for the past 2 days as well. He typically is in A-fib but is not in normal sinus rhythm on our monitor right now. Patient has history of COPD, stent, pulmonary nodule, A-fib. Patient denies fevers or chills. Related Data Home Medications ?Medication ?Instructions ?Recorded ?Confirmed gabapentin 100 mg capsule 100 mg PO DIRECTED 04/07/25 Previous Rx's ?Medication ?Instructions ?Recorded aspirin 81 mg chewable tablet 81 mg PO DAILY 30 days #30 tabs 06/27/23 (Kan Chewable Low Dose Aspirin) trazodone 50 mg tablet 50 mg PO HS #30 tabs 09/01/23 clopidogrel 75 mg tablet (Plavix) 75 mg PO DAILY 30 days #30 tabs 01/30/24 hydrochlorothiazide 25 mg tablet 25 mg PO DAILY #30 tabs 10/18/24 duloxetine 30 mg capsule,delayed 30 mg PO BID #60 caps 11/05/24 release budesonide 160 mcg-glycopyr 9 2 inh inhalation BID 90 days #10.7 02/04/25 mcg-formot 4.8 mcg/actuation HFA grams inhaler (Breztri Aerosphere) losartan 100 mg tablet 100 mg PO DAILY #30 tabs 02/04/25 metoprolol succinate 50 mg 50 mg PO BID #60 tabs 02/04/25 tablet,extended release 24 hr nitroglycerin 0.4 mg sublingual 0.4 mg sublingual Q5M PRN chest 02/04/25 tablet pain #25 tabs diltiazem HCl 120 mg 120 mg PO DAILY #90 caps 02/24/25 capsule,extended release 24 hr (Cartia XT) esomeprazole magnesium 40 mg 40 mg PO DAILY 8 weeks #90 caps 02/24/25 capsule,delayed release (Nexium) ranolazine 500 mg tablet,extended 500 mg PO BID #180 tabs 02/24/25 release,12 hr rosuvastatin 40 mg tablet 40 mg PO HS #30 tabs 03/16/25 rivaroxaban 20 mg tablet (Xarelto) 20 mg PO QPMWITHMEAL #30 tabs 03/24/25 Allergies Allergy/AdvReac Type Severity Reaction Status Date / Time lisinopril AdvReac Mild cough Verified 04/07/25 13:35 PFS <Gini Toribio (ED), CIGAR MAKING SUPERVISOR - Last Filed: 04/07/25 16:32> PFS Disclaimer: The information contained in this section may have been updated after the patient was seen, as this information can be updated by other users. Medical History (Updated 04/07/25 @ 15:09 by Gini Toribio (ED), CIGAR MAKING SUPERVISOR) Encounter for special screening examination for neoplasm of respiratory organ Hypokalemia Hyponatremia GERD (gastroesophageal reflux disease) Chronic cough Screening for colon cancer Hyperlipidemia Angina pectoris SOB (shortness of breath) Nocturnal hypoxemia Emphysema lung COPD (chronic obstructive pulmonary disease) Tobacco use disorder, continuous Hypertension Osteoarthritis of knees, bilateral Chronic pain Pulmonary nodule less than 1 cm in diameter with low risk for malignant neoplasm Skin lesion of face Screening for lung cancer Macrocytosis Anxiety Screening PSA (prostate specific antigen) Frozen shoulder Coronary artery disease History of skin cancer Paroxysmal A-fib Surgical History History of cholecystectomy (~2019) History of coronary artery stent placement Family History Other No significant family history Social History Smoking Status: Current every day smoker tobacco type: cigarettes packs per day: 2 pack-years: 70 smoking status start date: 1977 years smoked: 46 second hand exposure: Yes alcohol intake: never substance use type: denies use current occupational status: employed Travel in the last 8 weeks?: None household members: spouse and children housing: house current occupational exposures/hazards: No caffeine: Yes Other Medical History Have you received the Flu Vaccine for this season: No Have you received the Pneumonia Vaccine: No <Gini Toribio (ED), CIGAR MAKING SUPERVISOR - Last Filed: 04/07/25 16:32> ROS Obtained: Yes Systems reviewed as appropriate & no additional complaints except as documented Constitutional Constitutional: Reports as per HPI Physical Exam <Gini Toribio (ED), CIGAR MAKING SUPERVISOR - Last Filed: 04/07/25 16:32> General General appearance: alert and in no apparent distress Head Head exam: normocephalic Eye Eye exam: Present PERRL ENT ENT exam: Present mucous membranes moist Neck Neck exam: Present normal inspection and trachea midline Chest Chest inspection: Present symmetric chest wall rise Respiratory Respiratory exam: Present normal lung sounds bilaterally Cardiovascular Cardiovascular exam: Present regular rate, normal rhythm, normal heart sounds, +S1 and +S2 Abdominal Exam Abdominal exam: Present soft and normal bowel sounds Extremities Exam Extremities exam: Present normal inspection, full ROM and normal capillary refill Neurological Exam Neurological exam: Present alert, oriented X3 and normal gait Psychiatric Psychiatric exam: Present normal affect and normal mood Skin Skin exam: Present warm and dry HEART Score <Gini Toribio (ED), CIGAR MAKING SUPERVISOR - Last Filed: 04/07/25 16:32> HEART Score HEART Score assessment performed?: Yes History (anamnesis): Slightly suspicious ECG: Non-specific disturbance Age: >65 years Risk factors: 1-2 risk factors Troponin: </= normal limit HEART Score: 4 <Edgar Kam MD - Last Filed: 04/07/25 19:26> HEART Score HEART Score: 4 Critical Care <Gini Toribio (ED), CIGAR MAKING SUPERVISOR - Last Filed: 04/07/25 16:32> Critical Care Time Critical Care Time: No Medical Decision Making <Gini Toribio (ED), CIGAR MAKING SUPERVISOR - Last Filed: 04/07/25 16:32> Rashaad Inquiry Pt receiving controlled substance: No Rashaad was queried for this patient: No Vital Signs Vital Signs: 04/07/25 13:52 04/07/25 14:11 04/07/25 14:21 Temperature 98.0 F Temperature Source Oral Pulse Rate 60 58 L Pulse Rate [Apical] 63 Respiratory Rate 18 12 18 Blood Pressure 141/89 H 135/83 Blood Pressure [Right Arm] 158/105 H Blood Pressure Mean [Right Arm] 122 Blood Pressure Source Blood Pressure Source [Right Arm] Automatic Cuff Blood Pressure Position Blood Pressure Position [Right Arm] Sitting 02 Sat by Pulse Oximetry 95 96 94 L Oxygen Delivery Method Room Air 04/07/25 14:31 04/07/25 14:40 04/07/25 14:50 Temperature Temperature Source Pulse Rate 35 L 67 57 L Pulse Rate [Apical] Respiratory Rate 18 19 17 Blood Pressure 117/66 148/85 H 138/80 Blood Pressure [Right Arm] Blood Pressure Mean [Right Arm] Blood Pressure Source Blood Pressure Source [Right Arm] Blood Pressure Position Blood Pressure Position [Right Arm] 02 Sat by Pulse Oximetry 95 95 95 Oxygen Delivery Method 04/07/25 15:32 Temperature 98.6 F Temperature Source Oral Pulse Rate 74 Pulse Rate [Apical] Respiratory Rate 16 Blood Pressure 135/74 Blood Pressure [Right Arm] Blood Pressure Mean [Right Arm] Blood Pressure Source Automatic Cuff Blood Pressure Source [Right Arm] Blood Pressure Position Supine Blood Pressure Position [Right Arm] 02 Sat by Pulse Oximetry Oxygen Delivery Method Room Air Lab Data Labs: Lab Results 04/07/25 14:10: WBC 8.9, RBC 4.11 L, Hgb 12.9 L, Hct 38.5 L, MCV 93.7, MCH 31.4 H, MCHC 33.5, RDW 14.3, Plt Count 231, MPV 9.9, Neut % (Auto) 64.7, Lymph % (Auto) 26.5, Preble % (Auto) 8.3, Eos % (Auto) 0.0 L, Baso % (Auto) 0.2, Neut # (Auto) 5.8, Lymph # (Auto) 2.4, Preble # (Auto) 0.7, Eos # (Auto) 0.0, Baso # (Auto) 0.0, D-Dimer 0.54 H, Sodium 132 L, Potassium 4.1, Chloride 102, Carbon Dioxide 25, Anion Gap 9.1, BUN 12, Creatinine 0.90, Estimated Creat Clear 91, Estimated GFR 85, Est GFR ( Amer) 102, Glucose 80, Calcium 9.3, Magnesium 1.7, Total Bilirubin 0.4, AST 22, ALT 17, Alkaline Phosphatase 68, Troponin I < 0.01, NT-Pro-B Natriuret Pep 171 H, Total Protein 6.4, Albumin 4.1, Globulin 2.3, Albumin/Globulin Ratio 1.8, Lipase 104 04/07/25 14:10 04/07/25 14:10 Response Orders (Tests/Meds): ORDERS Category Date Time Status Chest XR -- portable [XR chest portable] Stat Exams 04/07/25 14:04 Completed BNP [NT Pro Brain Natriuretic Pep.] Stat Lab 04/07/25 14:10 Completed CBC [Complete Blood Count Auto Diff] Stat Lab 04/07/25 14:10 Completed Comprehensive Metabolic Panel Stat Lab 04/07/25 14:10 Completed D-Dimer Stat Lab 04/07/25 14:10 Completed Lipase Stat Lab 04/07/25 14:10 Completed Magnesium Stat Lab 04/07/25 14:10 Completed Trop I [Troponin I] Stat Lab 04/07/25 14:10 Completed ECG holter initial pfn Routine Y 04/07/25 Completed MDM Narrative Medical Decision Narrative: patient is a 65-year-old male presenting to the emergency department for evaluation of low heart rate in the pulmonology office and chest pain. Patient is hemodynamically stable and nontoxic-appearing upon arrival, afebrile. Differential diagnosis includes ACS, arrhythmias, electrolyte disturbance, among others. Workup will be conducted with hematologic labs, specific imaging. Initial inventions include crystalloid bolus, analgesics. Initial workup reviewed by me hematologic labs are remarkable for D-dimer that was 0.54 but he age-adjusted out so no CTA needed. Troponin was negative. Electrolytes were essentially negative he had a slightly low sodium at 132. Patient otherwise been stable, heart rate has been stable here in the ED. Imaging informally interpreted by me and remarkable for negative. Formal imaging read remarkable for negative. Upon repeat evaluation patient's pain is improved. Patient was placed on a Holter monitor to monitor for arrhythmias and heart rate. Discussed with patient and family that they are to make an appointment with cardiology within the next couple days. If he feels bad return to the ER immediately. Patient and family understand. Discussed case with <Edgar Kam MD - Last Filed: 04/07/25 19:26> Vital Signs Vital Signs: 04/07/25 13:52 04/07/25 14:11 04/07/25 14:21 Temperature 98.0 F Temperature Source Oral Pulse Rate 60 58 L Pulse Rate [Apical] 63 Respiratory Rate 18 12 18 Blood Pressure 141/89 H 135/83 Blood Pressure [Right Arm] 158/105 H Blood Pressure Mean [Right Arm] 122 Blood Pressure Source Blood Pressure Source [Right Arm] Automatic Cuff Blood Pressure Position Blood Pressure Position [Right Arm] Sitting 02 Sat by Pulse Oximetry 95 96 94 L Oxygen Delivery Method Room Air 04/07/25 14:31 04/07/25 14:40 04/07/25 14:50 Temperature Temperature Source Pulse Rate 35 L 67 57 L Pulse Rate [Apical] Respiratory Rate 18 19 17 Blood Pressure 117/66 148/85 H 138/80 Blood Pressure [Right Arm] Blood Pressure Mean [Right Arm] Blood Pressure Source Blood Pressure Source [Right Arm] Blood Pressure Position Blood Pressure Position [Right Arm] 02 Sat by Pulse Oximetry 95 95 95 Oxygen Delivery Method 04/07/25 15:32 Temperature 98.6 F Temperature Source Oral Pulse Rate 74 Pulse Rate [Apical] Respiratory Rate 16 Blood Pressure 135/74 Blood Pressure [Right Arm] Blood Pressure Mean [Right Arm] Blood Pressure Source Automatic Cuff Blood Pressure Source [Right Arm] Blood Pressure Position Supine Blood Pressure Position [Right Arm] 02 Sat by Pulse Oximetry Oxygen Delivery Method Room Air Lab Data Labs: Lab Results 04/07/25 14:10: WBC 8.9, RBC 4.11 L, Hgb 12.9 L, Hct 38.5 L, MCV 93.7, MCH 31.4 H, MCHC 33.5, RDW 14.3, Plt Count 231, MPV 9.9, Neut % (Auto) 64.7, Lymph % (Auto) 26.5, Preble % (Auto) 8.3, Eos % (Auto) 0.0 L, Baso % (Auto) 0.2, Neut # (Auto) 5.8, Lymph # (Auto) 2.4, Preble # (Auto) 0.7, Eos # (Auto) 0.0, Baso # (Auto) 0.0, D-Dimer 0.54 H, Sodium 132 L, Potassium 4.1, Chloride 102, Carbon Dioxide 25, Anion Gap 9.1, BUN 12, Creatinine 0.90, Estimated Creat Clear 91, Estimated GFR 85, Est GFR ( Amer) 102, Glucose 80, Calcium 9.3, Magnesium 1.7, Total Bilirubin 0.4, AST 22, ALT 17, Alkaline Phosphatase 68, Troponin I < 0.01, NT-Pro-B Natriuret Pep 171 H, Total Protein 6.4, Albumin 4.1, Globulin 2.3, Albumin/Globulin Ratio 1.8, Lipase 104 Response Orders (Tests/Meds): ORDERS Category Date Time Status Chest XR -- portable [XR chest portable] Stat Exams 04/07/25 14:04 Completed BNP [NT Pro Brain Natriuretic Pep.] Stat Lab 04/07/25 14:10 Completed CBC [Complete Blood Count Auto Diff] Stat Lab 04/07/25 14:10 Completed Comprehensive Metabolic Panel Stat Lab 04/07/25 14:10 Completed D-Dimer Stat Lab 04/07/25 14:10 Completed Lipase Stat Lab 04/07/25 14:10 Completed Magnesium Stat Lab 04/07/25 14:10 Completed Trop I [Troponin I] Stat Lab 04/07/25 14:10 Completed ECG holter initial pfn Routine Y 04/07/25 Completed MDM Narrative Medical Decision Narrative: patient is a 65-year-old male presenting to the emergency department for evaluation of low heart rate in the pulmonology office and chest pain. Patient is hemodynamically stable and nontoxic-appearing upon arrival, afebrile. Differential diagnosis includes ACS, arrhythmias, electrolyte disturbance, among others. Workup will be conducted with hematologic labs, specific imaging. Initial inventions include crystalloid bolus, analgesics. Initial workup reviewed by me hematologic labs are remarkable for D-dimer that was 0.54 but he age-adjusted out so no CTA needed. Troponin was negative. Electrolytes were essentially negative he had a slightly low sodium at 132. Patient otherwise been stable, heart rate has been stable here in the ED. Imaging informally interpreted by me and remarkable for negative. Formal imaging read remarkable for negative. Upon repeat evaluation patient's pain is improved. Patient was placed on a Holter monitor to monitor for arrhythmias and heart rate. Discussed with patient and family that they are to make an appointment with cardiology within the next couple days. If he feels bad return to the ER immediately. Patient and family understand. Discussed case with Dr. Kam I was consulted by the NANCY, and we discussed the complexity of the problems being addressed. I approve the treatment and management plan for this patient's care in the emergency department, thus performing a substantive portion of the medical decision making. Edgar Kam MD
--- OUTSIDE RECORDS SUMMARY | 2025-04-07 14:12 | XMS_ITS | Clinical Summary ---
[facility] Address [address] [place] [address] Care Team Providers Care Waistline Joiner Overlock Name Role Phone Unavailable Primary Care Provider Unavailabl e Social History Tobacco Use Types Packs/Day Years Used Date Smoking Tobacco: Never Assessed Abuse Screen Answer Date Recorded Unsafe at Home or Work/School Not on file Feels Threatened by Someone? Not on file 06/2023 Does Anyone Keep You from Co ntacting Others or Doint Things Outside the Home? Not on file 06/07/2023 Physical Sign of Abuse Present Not on file 1 Housing Stability Answer Date Recorded Current Living Arrangements Not on file 05/28 Potentially Unsafe Housing Conditions Not on ruben e 06/07/2023 Family and Community Support Answer Nilo e Recorded Help with Day-to-Day Activities Not on file 06/07/2023 Lonely or Isolated Not on file 06/07/2023 Employment Answer Date Recorded Do you want help finding or keeping work or a rodri b? Not on file 06/07/2023 Disabilities Answer Date Recorded Concentrating, Remembering, or Making Decisions Difficulty Not on file 06/07/2023 Doing Errands Independently Difficulty Not on fi le 06/07/2023 Education Answer Date Recorded Help with school or training? Not on file Preferred Language Not on file 06/07/2023 Sex and Gender Information Value Date Recorded Sex Assigned at Not on file Legal Sex Male 12:32 PM EDT Gender Identity Not on file Sexual Orientation Not on file Plan of Treatment Health Maintenance Due Date Last Done Comments ANNUAL PHYSICAL 1960 HEPATITIS C SCREENING 1960 TDAP/TD VACCINES (1 - Tdap) 01/18/1979 COLOGUARD 01/18/2005 COLON CANCER SCREENING 5 YEAR SIGMOIDOSCOPY 01/18/2005 COLONOSCOPY 01/18/2005 COLORECTAL CANCER SCREENING 01/18/2005 CT COLONOGRAPHY 01/18/2005 FECAL OCCULT BLOOD TEST 01/18/2005 FIT Testing (1 year) 01/18/2005 Pneumococcal Vaccine 50+ (1 of 1 - PCV) 01/18/2010 ZOSTER VACCINE (1 of 2) 01/18/2010 COVID-19 Vaccine (1 - 2023- season) 2024 AAA SCREEN ONCE 01/18/2025 INFLUENZA VACCINE 05/28/2025
[2025-04-07 14:29] LABS: Alanine Aminotransferase 17 U/L (12-78); Albumin Level 4.1 g/dl (3.5-5.0); Albumin/Globulin Ratio 1.8 (1.1-1.8); Alkaline Phosphatase 68 U/L (38-126); Anion Gap 9.1 mEq/L (5-15); Aspartate Amino Transferase 22 U/L (17-59); Bilirubin,Total 0.4 mg/dl (0.2-1.3); Blood Urea Nitrogen 12 mg/dl (9-20); Calcium 9.3 mg/dl (8.4-10.2); Carbon Dioxide 25 mmol/L (22.0-30.0); Chloride 102 mmol/L (98-107); Creatinine Clearance Estimated 91 mL/min (50-200); Creatinine,Serum 0.90 mg/dl (0.66-1.25); Estimated Glomerular Filt Rate 85 ml/min (>60); GFR (African American) 102 ML/MIN (>60); Globulin 2.3 g/dL (1.3-3.2); Glucose 80 mg/dl (74-100); Lipase 104 U/L (23-300); Magnesium 1.7 mg/dl (1.6-2.3); Potassium 4.1 mmoL/L (3.5-5.1); Sodium 132 mmol/L (136-145); Total Protein,Serum 6.4 g/dl (6.3-8.2)
[2025-04-07 14:35] LABS: D-Dimer 0.54 ug/mL (0.0-0.5)
[2025-04-07 14:38] LABS: NT Pro Brain Natriuretic Pep. 171 pg/mL (0-125)
[2025-04-07 14:48] LABS: Troponin I < 0.01 ng/ml (0.00-0.034)
[2025-04-07 14:57] LABS: Hematocrit 38.5 % (42.0-52.0); Hemoglobin 12.9 g/dL (14.1-18.0); Immature Granulocytes % 0.3 %; Mean Corpuscular HGB Conc 33.5 g/dL (31.8-35.4); Mean Corpuscular Hemoglobin 31.4 pg (27.0-31.2); Mean Corpuscular Volume 93.7 fl (80-94); Nucleated Red Blood Cells % 0 %; Platelet Count 231 K/mm3 (142-424); Red Blood Count 4.11 M/mm3 (4.60-6.20); Red Cell Distribution Width-SD 48.4 fL; White Blood Count 8.9 K/mm3 (4.8-10.8)
== END 2025-04-07 15:33 | disposition home or self-care (01) ==
PROVIDERS: Nurse Practitioner; Emergency Provider Student in an Organized Health Care Education/Training Program; PCP Family Medicine
DX: R07.89 Other chest pain (principal); J44.9 Chronic obstructive pulmonary disease, unspecified; I20.89 Other forms of angina pectoris; I10 Essential (primary) hypertension; E87.1 Hypo-osmolality and hyponatremia; F17.210 Nicotine dependence, cigarettes, uncomplicated
CPT/HCPCS: 71045; 80053; 83690; 83735; 83880; 84484; 85025; 85378; 93005; 93225; 93227; 99284

== ENCOUNTER 2025-06-17 09:23 | Outpatient (CLI) | payer MEDICARE, MEDICAID, SELFPAY ==
--- OUTSIDE RECORDS SUMMARY | 2025-06-17 09:44 | XMS_ITS | Clinical Summary ---
[facility] Address [address] [place] [address] Care Team Providers Care Stock Unloader Name Role Phone Unavailable Primary Care Provider [...] 01/18/2010 ZOSTER VACCINE (1 of 2) 01/18/2010 AAA SCREEN ONCE 01/18/2025 INFLUENZA VACCINE 03/28/2025 COVID-19 Vaccine ( - 2023- season) 2025
--- NOTE | 2025-06-17 09:45 | CT_ITS ---
FINAL REPORT CLINICAL HISTORY: lung cancer screening, current smoker - 1 pack per day x 47 yrs, copd COMPARISON: 05/14/2024 FINDINGS: CT CHEST LOW DOSE SCREENING HISTORY: Screening exam for lung cancer. DOSE: CTDI vol: 2.90 mGy, DLP: 113.85 mGy*cm TECHNIQUE: Axial CT without IV contrast administration using low dose protocol. This study was performed with techniques to keep radiation doses as low as reasonably achievable, (ALARA). Individualized dose reduction techniques using automated exposure control or adjustment of mA and/or kV according to the patient's size were employed. Moderate changes of emphysema are present. The left lower lobe nodule seen on the prior exam of 05/14/2024 is no longer present on the current exam. There is evidence of prior granulomatous disease. No pleural or pericardial effusion is seen. There are bulky calcified subcarinal nodes, which are stable. IMPRESSION: Previously noted left lower lobe nodule is no longer seen on the current exam. LUNG RADS CATEGORY 1 RECOMMENDATION: 12 month LDCT follow up Reviewed, Interpreted and Dictated by Yehuda Cabrera MD Transcribed by Melvi Escoto Authenticated and [facility]
== END 2025-06-17 23:59 | disposition home or self-care (01) ==
LOC: RAD 09:24
PROVIDERS: PCP Family Medicine; Visit Provider Internal Medicine Pulmonary Disease
DX: J44.9 Chronic obstructive pulmonary disease, unspecified (principal); Z12.2 Encounter for screening for malignant neoplasm of respiratory organs; F17.210 Nicotine dependence, cigarettes, uncomplicated
CPT/HCPCS: 71271

== ENCOUNTER 2025-07-21 12:11 | Outpatient (CLI) | payer MEDICARE, MEDICAID, SELFPAY ==
[2025-07-21 21:39] LABS: Albumin Level 4.0 g/dl (3.5-5.0); Chloride 100 mmol/L (98-107); Potassium 4.8 mmoL/L (3.5-5.1); Sodium 137 mmol/L (136-145)
[2025-07-21 21:42] LABS: Alanine Aminotransferase 13 U/L (12-78); Albumin/Globulin Ratio 1.6 (1.1-1.8); Alkaline Phosphatase 72 U/L (38-126); Anion Gap 16.8 mEq/L (5-15); Aspartate Amino Transferase 15 U/L (17-59); Bilirubin,Total 0.3 mg/dl (0.2-1.3); Blood Urea Nitrogen 11 mg/dl (9-20); Carbon Dioxide 25 mmol/L (22.0-30.0); Creatinine,Serum 0.90 mg/dl (0.66-1.25); Estimated Glomerular Filt Rate 85 ml/min (>60); GFR (African American) 102 ML/MIN (>60); Globulin 2.5 g/dL (1.3-3.2); Lipase 105 U/L (23-300); Total Protein,Serum 6.5 g/dl (6.3-8.2)
[2025-07-21 21:43] LABS: Calcium 9.1 mg/dl (8.4-10.2); Glucose 78 mg/dl (74-100)
[2025-07-21 21:46] LABS: Hematocrit 28.2 % (42.0-52.0); Hemoglobin 8.1 g/dL (14.1-18.0); Immature Granulocytes % 0.4 %; Mean Corpuscular HGB Conc 28.7 g/dL (31.8-35.4); Mean Corpuscular Hemoglobin 24.8 pg (27.0-31.2); Mean Corpuscular Volume 86.2 fl (80-94); Nucleated Red Blood Cells % 0.5 %; Platelet Count 272 K/mm3 (142-424); Red Blood Count 3.27 M/mm3 (4.60-6.20); Red Cell Distribution Width-SD 50.8 fL; White Blood Count 9.8 K/mm3 (4.8-10.8)
--- OUTSIDE RECORDS SUMMARY | 2025-07-22 09:15 | XMS_ITS | Clinical Summary ---
[facility] Address [address] [place] [address] Care Team Providers Care World History Teacher Name Role Phone Unavailable Primary Care Provider [...]
== END 2025-07-21 23:59 ==
LOC: LAB.DROPOF 07-22 09:05
PROVIDERS: PCP Family Medicine; Visit Provider Family Medicine
DX: R10.9 Unspecified abdominal pain (principal)
CPT/HCPCS: 80053; 83690; 85025

== ENCOUNTER 2025-07-23 10:14 | Outpatient (CLI) | payer MEDICARE, MEDICAID, SELFPAY ==
[2025-07-23 18:24] LABS: Hematocrit 26.5 % (42.0-52.0); Hemoglobin 7.5 g/dL (14.1-18.0); Immature Granulocytes % 0.4 %; Mean Corpuscular HGB Conc 28.3 g/dL (31.8-35.4); Mean Corpuscular Hemoglobin 24.3 pg (27.0-31.2); Mean Corpuscular Volume 85.8 fl (80-94); Nucleated Red Blood Cells % 0.3 %; Platelet Count 274 K/mm3 (142-424); Red Blood Count 3.09 M/mm3 (4.60-6.20); Red Cell Distribution Width-SD 50.4 fL; White Blood Count 9.1 K/mm3 (4.8-10.8)
--- OUTSIDE RECORDS SUMMARY | 2025-07-28 10:45 | XMS_ITS | Clinical Summary ---
Author Organization [facility] Address [address] [place] [address] Care Team Providers Care Hand Outside Cutter Name Role Phone Unavailable Primary Care Provider [...]
== END 2025-07-23 23:59 ==
LOC: LAB.DROPOF 07-28 10:15
PROVIDERS: PCP Family Medicine; Visit Provider Family Medicine
DX: D64.9 Anemia, unspecified (principal)
CPT/HCPCS: 85025

== ENCOUNTER 2025-07-28 10:52 | Outpatient (CLI) | payer MEDICARE, MEDICAID, SELFPAY ==
[2025-07-28 15:23] LABS: Hematocrit 26.9 % (42.0-52.0); Hemoglobin 8.0 g/dL (14.1-18.0); Immature Granulocytes % 0.2 %; Mean Corpuscular HGB Conc 29.7 g/dL (31.8-35.4); Mean Corpuscular Hemoglobin 24.8 pg (27.0-31.2); Mean Corpuscular Volume 83.5 fl (80-94); Nucleated Red Blood Cells % 0.5 %; Platelet Count 274 K/mm3 (142-424); Red Blood Count 3.22 M/mm3 (4.60-6.20); Red Cell Distribution Width-SD 50.6 fL; White Blood Count 8.3 K/mm3 (4.8-10.8)
--- OUTSIDE RECORDS SUMMARY | 2025-07-29 15:10 | XMS_ITS | Clinical Summary ---
[facility] Address [address] [place] [address] Care Team Providers Care Slot Operations Director Name Role Phone Unavailable Primary Care Provider [...]
== END 2025-07-28 23:59 | disposition home or self-care (01) ==
LOC: LAB.DROPOF 07-29 15:07
PROVIDERS: PCP Family Medicine; Visit Provider Family Medicine
DX: D64.9 Anemia, unspecified (principal)
CPT/HCPCS: 85025

== ENCOUNTER 2025-07-30 07:50 | Outpatient (CLI) | payer MEDICARE, MEDICAID, SELFPAY ==
--- NOTE | 2025-07-30 | CA_ITS ---
APPROVED REPORT Exam: Pharmacologic Technologist: Marysol Monahan Stress Nurse: Zaina TAVERAS, RN Ht: 5 ft 6 in Wt: 191 lbs BSA: 1.96 m2 HR: 55 bpm BP: 137/68 mmHg Indications: Chest pain, rule out ischemia Stress Test Details Test: Lexiscan HR Resting HR: 55 bpm Max Heart Rate (APMHR): 155.035025 bpm Max HR Achieved: 80 bpm Target HR (85% APMHR): 131.051201 bpm % of APMHR: 51.61 Recovery HR: 70 bpm BP Resting BP: 137.0/68.0 mmHg Max BP: 142.0/74.0 mmHg Recovery BP: 138.0/65.0 mmHg ECG Stress ECG Conclusion Lungs clear to auscultation prior to test start. Symptoms: None Arrhythmias/Ectopy: PAC/PVC ST-T Changes: Less than 0.[address] segment changes. Electronically signed by : Acacia Loza MD 08/05/2025 13:06:30
--- OUTSIDE RECORDS SUMMARY | 2025-07-30 07:53 | XMS_ITS | Clinical Summary ---
[facility] Address [address] [place] [address] Care Team Providers Care Senior Examiner Name Role Phone Unavailable Primary Care Provider [...]
--- NOTE | 2025-07-30 08:00 | NM_ITS ---
APPROVED REPORT Exam: Nuclear Stress Test Indication: Chest pain, SOB, HTN, DM, High cholesterol, Tobacco use, Family history, CAD Patient Location: Outpatient Stress Tech: Marysol Monahan PR Tech:Marylin Caraballo, ARRT, RT (R)(N) Ht: 5 ft 6 in Wt: 190 lbs HR: 55 bpm BP: 137/68 mmHg BSA: 1.96 m2 TID: 1.08 BMI: 30.6 History: Chest pain, SOB, HTN, DM, High cholesterol, Tobacco use, Family history, CAD Procedure: Patient received 0.4 mg of intravenous Lexiscan, resting heart rate 55 bpm, resting blood pressure 137/68 mmHg, with Lexiscan maximum heart rate achieved was 80 bpm which is % of the maximum predicted heart rate and blood pressure was 142/74 mmHg. With Lexiscan, patient denied any complaint of chest pain. Cardiac Stress and Resting SPECT Images: Cardiac Stress and Resting SPECT images were obtained using technetium 99m Myoview 32.1 mCi stress and 10.79 mCi at rest. Resting and stress imaging in supine and prone positions demonstrate a medium sized, mild, reversible perfusion defect in the basal to mid inferior and inferoseptal LV everett. Gated imaging demonstrates normal global LV systolic function. LVEF is calculated at 60%. Conclusion: Medium sized, mild, reversible perfusion defect in the basal to mid inferior and inferoseptal LV everett. Findings are suggestive of reversible ischemia. Gated imaging demonstrates normal global LV systolic function. LVEF is calculated at 60%. Electronically signed by : Acacia Loza MD 08/05/2025 12:50:34
[2025-07-30 08:55] VITALS: BP 137/68; PULSE 55; RESP 16
[2025-07-30] MEDS: SODIUM CHLORIDE 0.9% 10ML SYR (RAD ONLY) 10 ML IV ×2 (09:09)
[2025-07-30] MEDS: ISOTOPE MYOVIEW (PER STUDY) 1 DOSE IV (09:09)
--- NOTE | 2025-07-30 10:57 | XR_ITS ---
FINAL REPORT CLINICAL HISTORY: left knee pain COMPARISON: 11/03/2023 FINDINGS: LEFT KNEE 3 views of the left knee were obtained. There is no acute fracture or dislocation. Visualized joint spaces are normally aligned. Soft tissues are unremarkable. IMPRESSION: No acute bony abnormality. Reviewed, Interpreted and Dictated by Karen Winkler MD Transcribed by Lali Dennison Authenticated and [facility]
--- NOTE | 2025-07-30 10:57 | XR_ITS ---
FINAL REPORT CLINICAL HISTORY: right knee pain COMPARISON: 11/03/2023 FINDINGS: RIGHT KNEE 3 views of the right knee were obtained. There is no acute fracture or dislocation. Visualized joint spaces are normally aligned. Soft tissues are unremarkable. IMPRESSION: No acute bony abnormality. Reviewed, Interpreted and Dictated by Karen Winkler MD Transcribed by Lali Dennison Authenticated and . [facility]
== END 2025-07-30 23:59 | disposition home or self-care (01) ==
PROVIDERS: PCP Family Medicine; Visit Provider Internal Medicine
DX: I49.1 Atrial premature depolarization (principal); I49.3 Ventricular premature depolarization; I20.89 Other forms of angina pectoris; M25.561 Pain in right knee; M25.562 Pain in left knee; I10 Essential (primary) hypertension; E11.9 Type 2 diabetes mellitus without complications; E78.00 Pure hypercholesterolemia, unspecified; R94.39 Abnormal result of other cardiovascular function study; Z72.0 Tobacco use
CPT/HCPCS: 73562; 78452; 93017; 93018; A9502; J2785

== ENCOUNTER 2025-08-06 08:22 | Outpatient (CLI) | payer MEDICARE, MEDICAID, SELFPAY ==
--- NOTE | 2025-08-06 08:45 | CT_ITS ---
FINAL REPORT CLINICAL HISTORY: abdominal pain FINDINGS: The lung bases are clear. Small, scattered calcifications are seen in the liver and spleen likely due to granulomas. The spleen and liver are otherwise unremarkable. The adrenals are normal. The pancreas is unremarkable. There are benign-appearing cysts in the superior pole of the right kidney measuring up to 1.2 cm. Precontrast images demonstrate no nephrolithiasis. There is ectasia of the infrarenal abdominal aorta measuring up to 2.5 cm. Descending and sigmoid diverticulosis is seen without evidence of diverticulitis. Urinary bladder is incompletely distended. IMPRESSION: Sigmoid diverticulosis without evidence of diverticulitis Reviewed, Interpreted and Dictated by Jose Enrique Curtis MD Transcribed by Lali Dennison Authenticated and . [facility]
[2025-08-06] MEDS: BARIUM SULFATE(READI-CAT2);450ML BOTTLE 450 ML PO (08:47)
[2025-08-06] MEDS: SODIUM CHLORIDE 0.9% 10ML SYR (RAD ONLY) 10 ML IV (08:47)
[2025-08-06] MEDS: IOPAMIDOL-370 (76%);100ML BOTTLE 75 ML IV (08:47)
== END 2025-08-06 23:59 | disposition home or self-care (01) ==
LOC: RAD 08:23
PROVIDERS: PCP Family Medicine; Visit Provider Family Medicine
DX: K57.30 Diverticulosis of large intestine without perforation or abscess without bleeding (principal)
CPT/HCPCS: 74178; Q9967

== ENCOUNTER 2025-08-18 12:50 | Day surgery (SDC) | payer MEDICARE, MEDICAID, SELFPAY ==
--- NOTE | 2025-08-17 12:34 | EXP.HP ---
History of Present Illness *Admission Date: 08/18/25 *History of present illness: Mr. Carter is a 65-year-old gentleman who is here for diagnostic EGD and screening colonoscopy. He has had gastroesophageal reflux and dysphagia for the last 6 to 7 months. He has been on Nexium for the last 2 to 3 months without improvement of symptoms. His dysphagia is to both solids and liquids. He does have some gaseous distention and bloating. He thinks that his brother may have had throat or jaw cancer. The patient does not know when his last colonoscopy took place and PCP felt that he was due for screening/surveillance colonoscopy. The examination is deemed medically necessary for diagnostic EGD and screening colonoscopy. The patient has been seen, interviewed and examined prior to the procedure by both myself and the anesthesia provider. [facility] Disclaimer: The information contained in this section may have been updated after the patient was seen, as this information can be updated by other users. Medical History Coronary artery disease Anemia Abnormal findings on diagnostic imaging of heart and coronary circulation Screening for colon cancer Encounter for special screening examination for neoplasm of respiratory organ Hypokalemia Hyponatremia GERD (gastroesophageal reflux disease) Chronic cough Hyperlipidemia Angina pectoris SOB (shortness of breath) Nocturnal hypoxemia Emphysema lung COPD (chronic obstructive pulmonary disease) Tobacco use disorder, continuous Hypertension Osteoarthritis of knees, bilateral Chronic pain Pulmonary nodule less than 1 cm in diameter with low risk for malignant neoplasm Skin lesion of face Screening for lung cancer Macrocytosis Anxiety Screening PSA (prostate specific antigen) Frozen shoulder History of skin cancer Paroxysmal A-fib Surgical History History of cholecystectomy (~2019) History of coronary artery stent placement Family History Other No significant family history Social History Smoking Status: Current every day smoker tobacco type: cigarettes packs per day: 2 pack-years: 70 smoking status start date: 1977 years smoked: 46 second hand exposure: Yes alcohol intake: never substance use type: denies use current occupational status: employed Travel in the last 8 weeks?: None household members: spouse and children housing: house current occupational exposures/hazards: No caffeine: Yes Have you lived/traveled outside [place] in past 30 days?: No Contact w/someone who lives/traveled outside US past 30 days?: No Exposure to someone with infectious disease in past 14 days?: No Do you have a fever (greater than 100.4 F or 38 C)?: No Have you tested positive for COVID-19?: No Exposed to someone with COVID-19 in past 14 days?: No Do you have a sore throat?: No Do you have a cough?: No Do you have any weakness?: No Are you experiencing any nausea/vomitting?: No Do you have any diarrhea?: No Are you experiencing any unusual bleeding?: No Do you have any muscle aches/pain?: No Do you have any abdominal pain?: No Are you experiencing loss of taste or smell?: No Other Medical History Have you received the Flu Vaccine for this season: No Have you received the Pneumonia Vaccine: No Review of Systems Review of Systems Review of systems (narrative): Negative *Cardiovascular Comments: Negative *Gastrointestinal Comments: Negative *Genitourinary Comments: Negative *Musculoskeletal Comments: Negative *Neurologic Comments: Negative Meds Home Medications and Allergies Home Medications ?Medication ?Instructions ?Recorded ?Confirmed ?Type aspirin 81 mg chewable tablet 81 mg PO DAILY 30 days #30 tabs 06/27/23 08/18/25 Rx (Kan Chewable Low Dose Aspirin) trazodone 50 mg tablet 50 mg PO HS #30 tabs 09/01/23 08/18/25 Rx hydrochlorothiazide 25 mg tablet 25 mg PO DAILY #30 tabs 10/18/24 08/18/25 Rx nitroglycerin 0.4 mg sublingual 0.4 mg sublingual Q5M PRN chest 02/04/25 08/18/25 Rx tablet pain #25 tabs diltiazem HCl 120 mg 120 mg PO DAILY #90 caps 02/24/25 08/18/25 Rx capsule,extended release 24 hr (Cartia XT) esomeprazole magnesium 40 mg 40 mg PO DAILY 8 weeks #90 caps 02/24/25 08/18/25 Rx capsule,delayed release (Nexium) ranolazine 500 mg tablet,extended 500 mg PO BID #180 tabs 02/24/25 08/18/25 Rx release,12 hr rosuvastatin 40 mg tablet 40 mg PO HS #30 tabs 07/20/25 12/22/25 Rx rivaroxaban 20 mg tablet (Xarelto) 20 mg PO QPMWITHMEAL #30 tabs 03/24/25 08/18/25 Rx Held on 07/22/25. Instructions: Home Medication placed on hold at Doctor's office gabapentin 100 mg capsule 100 mg PO DIRECTED 04/07/25 08/18/25 History budesonide 160 mcg-glycopyr 9 See Rx Instructions .Route 05/23/25 08/18/25 Rx mcg-formot 4.8 mcg/actuation HFA .COMPLEX #11 grams inhaler (Breztri Aerosphere) ipratropium 0.5 mg-albuterol 3 mg 3 ml inhalation QID PRN shortness 05/29/25 08/18/25 Rx (2.5 mg base)/3 mL nebulization of breath or wheezing 90 days #270 soln mL duloxetine 30 mg capsule,delayed See Rx Instructions .Route 06/03/25 08/18/25 Rx release .COMPLEX #60 ea losartan 100 mg tablet 100 mg PO DAILY #30 tabs 06/09/25 08/18/25 Rx albuterol sulfate 90 mcg/actuation 2 inh inhalation QID PRN shortness 07/15/25 08/18/25 Rx aerosol inhaler (Ventolin HFA) of breath or wheezing 90 days #8.5 grams metoprolol succinate 50 mg 50 mg PO BID #180 tabs 08/04/25 08/18/25 Rx tablet,extended release 24 hr peg 3350-electrolytes 236 240 ml PO Q10M colonscopy #4,000 mL 08/15/25 08/18/25 Rx gram-22.74 gram-6.74 gram-5.86 gram solution (Golytely) New Prescriptions to Start Prescriptions: Allergies Allergy/AdvReac Type Severity Reaction Status Date / Time lisinopril AdvReac Mild cough Verified 08/18/25 13:48 Exam *Routine HEENT Exam Head: Present normocephalic Eye: Present EOMI and PERRL ENT: Present mucous membranes moist *Routine Neck Exam Neck: Present supple *Routine Respiratory Exam Respiratory: Present CTA bilaterally *Routine Cardiovascular Exam Cardiovascular: Present RRR *Routine Abdominal Exam Abdominal: Present soft and normoactive bowel sounds; Absent tenderness *Routine Rectal Exam Rectal:: deferred *Routine Genitalia Exam Genitalia:: deferred *Routine Extremities Exam Extremities: Absent cyanosis, clubbing or edema *Routine Skin Exam Skin: Present warm; Absent rash *Routine Neurological Exam Neurological: Present alert and oriented X3 Assessment and Plan *Assessment and plan (1) Dysphagia: Status: Acute Category: Medical Code(s): R13.10 - Dysphagia, unspecified (2) Heartburn: Status: Acute Category: Medical Code(s): R12 - Heartburn (3) Bloating: Status: Acute Category: Medical Code(s): R14.0 - Abdominal distension (gaseous) (4) Screening for colon cancer: Status: Acute Category: Medical Code(s): Z12.11 - Encounter for screening for malignant neoplasm of colon Plan A/P: 1. Dysphagia, heartburn, reflux and bloating for EGD and screening for colon cancer for colonoscopy is the preprocedural diagnosis. The patient will be anesthetized/sedated using MAC sedation. The patient has been seen and examined. Cardiac and lung assessment prior to the examination is stable. Proceed with planned diagnostic EGD and screening colonoscopy.
--- NOTE | 2025-08-18 07:23 | P.PCN_ITS ---
[facility] Procedure Note Date: 08/18/25 Time: 14:44 Procedure Note:: Upper Endoscopy Procedure Report: Esophagogastroduodenoscopy with cold biopsies and TTS balloon dilation Endoscopost: Sonu Velasco II, MD Referring Physician: Hung Varma MD Date of Procedure: August 18, 2025 Equipment: Olympus [id number]-1100 standard upper endoscope Sedation: MAC sedation Indications: Mr. Carter is a 65-year-old gentleman who is here for diagnostic EGD and screening colonoscopy. He does have anemia with hemoglobin 8.0 and hematocrit 26.9. He has not had any recent iron studies. He has had gastroesophageal reflux and dysphagia for the last 6 to 7 months. He has been on Nexium for the last 2 to 3 months without improvement of symptoms. His dysphagia is to both solids and liquids. He does have some gaseous distention and bloating. He thinks that his brother may have had throat or jaw cancer. The patient does not know when his last colonoscopy took place and PCP felt that he was due for screening/surveillance colonoscopy. The examination is deemed medically necessary for diagnostic EGD and screening colonoscopy. Procedure: Prior to the procedure, a history and physical exam was performed, and patient's medications and allergies were reviewed. The risks, benefits and alternatives of the sedation and procedure were discussed with the patient. All questions were answered and informed consent was obtained. The patient was brought to the procedure room. Patient identification and proposed procedure were verified by the physician and the nurse. The patient was placed in a left lateral decubitus position and the scope was passed under direct vision. Throughout the pr ocedure, the patient's blood pressure, pulse, and oxygen saturations were monitored continuously. The upper GI endoscopy was accomplished without difficulty. The patient tolerated the procedure well. Findings: The scope was passed directly into the upper esophagus and advanced to the third portion of the duodenum. The post bulbar duodenum, ampulla and duodenal bulb were normal with normal mucosa and conniventes. 2 cold biopsies were taken from the second portion of the duodenum for the disaccharidase assay. The scope was withdrawn through a normal duodenal bulb and pylorus into the stomach. There was bile reflux with mild linear reactive gastropathy of the antrum. The body and fundus of the stomach were normal. Upon retroflexion there was a very small sliding 1 to 2 cm hiatal hernia. Cold biopsies were taken from the antrum. The scope was then withdrawn into the esophagus. There was a distal fibrotic Schatzki's ring. The original diameter was 17 to 18 mm and this was dilated to 20 mm with a TTS hydrostatic balloon. There was no evidence of reflux esophagitis or Conrad's. There were some tertiary contractions and evidence of mild esophageal dysmotility. The remainder of the esophageal mucosa was normal. Impression: 1. Schatzki's ring dilated to 20 mm 2. Nonerosive GERD with mild esophageal dysmotility and very small sliding 1 to 2 cm hiatal hernia 3. Bile reflux with mild linear reactive gastropathy Plan: I will follow-up the biopsies and disaccharidase assay and proceed with diagnostic colonoscopy.
--- NOTE | 2025-08-18 07:24 | P.PCN_ITS ---
[facility] Procedure Note Date: 08/18/25 Time: 14:42 Procedure Note:: Colonoscopy Procedure Report: Colonoscopy with cold snare polypectomy Endoscopist: Sonu Velasco II, MD Referring physician: Hung Varma MD Date of Procedure: August 18, 2025 Equipment: Olympus [id number] adult colonoscope Sedation: MAC sedation Indication: Mr. Carter is a 65-year-old gentleman who is here for diagnostic EGD and screening colonoscopy. He does have anemia with hemoglobin 8.0 and hematocrit 26.9. He has not had any recent iron studies. He has had gastroesophageal reflux and dysphagia for the last 6 to 7 months. He has been on Nexium for the last 2 to 3 months without improvement of symptoms. His dysphagia is to both solids and liquids. He does have some gaseous distention and bloating. He thinks that his brother may have had throat or jaw cancer. The patient does not know when his last colonoscopy took place and PCP felt that he was due for screening/surveillance colonoscopy. The examination is deemed medically necessary for diagnostic EGD and screening colonoscopy. Procedure: Prior to the procedure, a history and physical exam was performed, and patient's medications and allergies were reviewed. The risks, benefits and alternatives of the sedation and procedure were discussed with the patient. All questions were answered and informed consent was obtained. The patient was brought to the procedure room. Patient identification and proposed procedure were verified by the physician and the nurse. The patient was placed in a left lateral decubitus position and the scope was passed under direct vision. Throughout the procedure, the patient's blood pressure, pulse, and oxygen saturations were monitored continuously. The colonoscopy was accomplished without difficulty. The patient tolerated the procedure well. Findings: On digital rectal examination there was normal rectal tone. There were no external hemorrhoids. The colonoscope was introduced through the anal canal to the rectum and advanced to the cecum. The ileocecal valve and appendiceal orifice were identified. The scope was advanced a short distance into the ileum which appeared grossly normal. The scope was then withdrawn into the colon. There were 20 colon polyps (cecum/ascending x 4 (4, 5, 5 and 7 mm), transverse x 3 (4, 7 and 8 mm), descending x 4 (4, 4, 5 and 6 mm), sigmoid x 6 (4, 4, 6 and 10 mm (pedunculated)), rectosigmoid x 1 (8 mm) and rectum x 3 (5, 5 and 6 mm)). All of these were removed via cold snare polypectomy but the pedunculated sigmoid and rectosigmoid were removed via snare cautery. There were a few scattered diverticuli throughout the descending and sigmoid colon (LEFT colon). The rectum itself was normal. Upon retroflexion within the rectum there were grade 1-2 internal hemorrhoids. The preparation was excellent throughout with [place] Preparation Score of 9. The cecal time was 20 minutes. Impression: 1. Colonic polyps x 20 Plan: I will follow-up the polyp histology and recommend repeat screening/surveillance colonoscopy again in 1 year based upon the number and size of adenomatous colon polyps.
--- NOTE | 2025-08-18 13:42 | P.PNANES_ITS ---
[facility] Disclaimer: The information contained in this section may have been updated after the patient was seen, as this information can be updated by other users. Medical History (Updated 08/17/25 @ 12:37 by Sonu Velasco II, MD) Coronary artery disease Anemia Abnormal findings on diagnostic imaging of heart and coronary circulation Screening for colon cancer Encounter for special screening examination for neoplasm of respiratory organ Hypokalemia Hyponatremia GERD (gastroesophageal reflux disease) Chronic cough Hyperlipidemia Angina pectoris SOB (shortness of breath) Nocturnal hypoxemia Emphysema lung COPD (chronic obstructive pulmonary disease) Tobacco use disorder, continuous Hypertension Osteoarthritis of knees, bilateral Chronic pain Pulmonary nodule less than 1 cm in diameter with low risk for malignant neoplasm Skin lesion of face Screening for lung cancer Macrocytosis Anxiety Screening PSA (prostate specific antigen) Frozen shoulder History of skin cancer Paroxysmal A-fib Surgical History History of cholecystectomy (~2018) History of coronary artery stent placement Family History Other No significant family history Social History Smoking Status: Current every day smoker tobacco type: cigarettes packs per day: 2 pack-years: 70 smoking status start date: 1977 years smoked: 46 second hand exposure: Yes alcohol intake: never substance use type: denies use current occupational status: employed Travel in the last 8 weeks?: None household members: spouse and children housing: house current occupational exposures/hazards: No caffeine: Yes Have you lived/traveled outside [place] in past 30 days?: No Contact w/someone who lives/traveled outside US past 30 days?: No Exposure to someone with infectious disease in past 14 days?: No Do you have a fever (greater than 100.4 F or 38 C)?: No Have you tested positive for COVID-19?: No Exposed to someone with COVID-19 in past 14 days?: No Do you have a sore throat?: No Do you have a cough?: No Do you have any weakness?: No Do you have any diarrhea?: No Are you experiencing any unusual bleeding?: No Do you have any muscle aches/pain?: No Do you have any abdominal pain?: No Are you experiencing loss of taste or smell?: No [facility] Anesthesia Checklist Patient Identification Patient Identification: Arm Band Structural Data Admitted From: Home Planned Operative Procedure/s: EGD/Colonoscopy Consent for Planned Operative Procedure(s) Verified: Yes Verified Documents: Surgical Consent and History and Physical NPO Status Verified Time NPO: 00:00 Additional verifications Anesthesia Reactions: No Hx Blood Transfusions: No Blood Transfusion Reaction: No Airway Assessment Mallampati Score:: Class II C-Spine Mobility Assessed: Yes TMJ Mobility Assessed: Yes Dentition: Edentulous Neurological Assessment Level of Consciousness: Awake, Alert and Appropriate Anesthesia Plan Anesthesia Risk discussed: Yes Anesthesia Plan: Verified ASA Class: III Anesthesia Type: MAC Preoperative Comments Pre-Operative Comments: Pt received cardiac clearance but declared a high risk and that we should use minimal sedation. Had lengthy discussion with pt about risks/benefits of proceeding today, especially being high risk for sedation. Pt agrees to continue with procedure.
[2025-08-18 13:52] VITALS: BP 162/84; PULSE 62; RESP 16; TEMP 36.1; O2SAT 96; BMI 30.7
[2025-08-18] MEDS: LACTATED RINGERS 1000ML 1,000 ML 50 ML IV (14:03)
[2025-08-18 15:17] VITALS: BP 96/56; PULSE 59; RESP 18; TEMP 36.4; O2SAT 100
[2025-08-18 15:27] VITALS: BP 106/60; PULSE 57; O2SAT 98
[2025-08-18 15:37] VITALS: BP 113/82; PULSE 61; O2SAT 97
[2025-08-18 15:47] VITALS: BP 113/57; PULSE 63; O2SAT 100
[2025-08-18 15:59] LABS: Iron 19 ug/dL (49-181)
[2025-08-18 16:10] LABS: Total Iron Binding Capacity 368 ug/dL (261-462)
[2025-08-18 16:36] LABS: Ferritin 5.40 ng/ml (17.9-464)
[2025-09-01 09:17] LABS: Interpretation Notes (.); Lactase 65.48 (>/= 14.0); Maltase 253.23 (>/= 110.0); Palatinase 20.88 (>/= 8.5); Reference Notes (.); Sucrase 78.31 (>/= 25.0)
== END 2025-08-18 15:47 | disposition home or self-care (01) ==
PROVIDERS: PCP Family Medicine; Visit Provider Internal Medicine Gastroenterology
PROC: 0DJ08ZZ Inspection of Upper Intestinal Tract, Via Natural or Artificial Opening Endoscopic (ICD-10-PCS; CPT 45378; principal; 2025-08-18 15:00)
DX: Z12.11 Encounter for screening for malignant neoplasm of colon (principal); K22.2 Esophageal obstruction; K31.89 Other diseases of stomach and duodenum; K44.9 Diaphragmatic hernia without obstruction or gangrene; D64.9 Anemia, unspecified; D12.7 Benign neoplasm of rectosigmoid junction; D12.0 Benign neoplasm of cecum; D12.4 Benign neoplasm of descending colon; D12.5 Benign neoplasm of sigmoid colon; D12.3 Benign neoplasm of transverse colon; K64.1 Second degree hemorrhoids; R13.10 Dysphagia, unspecified; R12 Heartburn; R14.0 Abdominal distension (gaseous); Z79.899 Other long term (current) drug therapy; F17.210 Nicotine dependence, cigarettes, uncomplicated
CPT/HCPCS: 43239; 43249; 45385; 36415; 82657; 82728; 83540; 83550; C1726; J2003; J2704; J7120